=== PATIENT | female | born 1965 | race Caucasian/White ===

== ENCOUNTER 2016-09-05 09:18 | Outpatient (CLI) | payer OTHER ==
[~2016-09-05 09:18] MED LIST: ALBU17IN INH; ALBU83IN INH; BIOT10005 PO; BREO1INH3 IN; CALC600T21 PO; CLAR10CA3 PO; DULE200A IN; EPIP0.3I2 SC; FLON0.054; IBUP80TA PO; LEXA5TAB13 PO; LIPI10TA PO; METF500T PO; OMALIZUMAB 150 MG (XOLAIR) VIAL (J2357) SC ONE; OMEP40CA2 PO; PRED10TA PO; SING10TA32 PO; SYMB16INH INH; VITA100T20 PO; VITATAB21 PO
== END 2016-09-05 10:30 | disposition home or self-care (01) ==
LOC: M INFU 09:18
PROVIDERS: ATTEND Internal Medicine Pulmonary Disease
DX: J45.50 Severe persistent asthma, uncomplicated (principal)

== ENCOUNTER 2016-09-17 12:57 | Emergency (ER) | payer OTHER ==
[~2016-09-17 12:57] MED LIST changes: -OMALIZUMAB 150 MG (XOLAIR) VIAL (J2357) SC ONE
[2016-09-17] MEDS ORDERED: ACETAMINOPH W/CODEINE #3 TAB UD As Ordered ONE (16:05)
[2016-09-17] MEDS ORDERED: METHOCARBAMOL 500 MG TAB As Ordered ONE (16:06)
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
--- NOTE | 2016-09-17 17:15 | EDDOCDS ---
Physician Documentation [facility] Name: Padmaja Pat Age: 51 yrs Sex: Female : 1965 Arrival Date: 09/17/2016 Time: 12:57 Bed TR8 Private MD: Lisseth Traylor NP Disposition: 09/17/16 16:57 Discharged to Home/Self Care. Impression: Low back pain, Other intervertebral disc degeneration, lumbar region. - Condition is Stable. - Discharge Instructions: Back Pain, Adult, Degenerative Disk Disease. - Prescriptions for Ibuprofen 600 mg Oral Tablet - take 1 tablet by ORAL route every 6 hours As needed take with food; 30 tablet. Robaxin 500 mg Oral Tablet - take 2 tablet by ORAL route every 6 hours As needed; 40 tablet. Tylenol- Codeine #3 300-30 mg Oral Tablet - take 2 tablets by ORAL route every 6 hours As needed MDD: 4 tabs; 20 tablet. - Medication Reconciliation, Local Pharmacy Hours form. - Follow up: Lisseth Traylor; When: 2 - 3 days; Reason: Recheck today's complaints, Continuance of care. Follow up: [facility]; When: 2 - 3 days; Reason: Recheck today's complaints, Continuance of care. - Problem is new. - Symptoms have improved. Historical: - Allergies: no known allergies; - Home Meds: 1. omeprazole 20 mg Oral cpDR 1 cap once daily 2. escitalopram oxalate 20 mg oral tab 1 tab once daily 3. biotin oral 1 tab daily 4. loratadine 10 mg Oral tab 1 tab once daily 5. Singulair 10 mg Oral tab 1 tab nightly 6. Vitamin C 500 mg Oral cpER daily 7. Calcium + Vitamin D 600 mg calcium- 200 unit Oral tab daily - PMHx: Asthma; COPD; Diabetes - NIDDM: controlled; Seasonal Allergies; - PSHx: Hysterectomy; dental extractions; gastric sleeve; - Social history: Smoking status: Patient uses tobacco products, light tobacco smoker. No barriers to communication noted, The patient speaks fluent Ethiopian. - Family history: Not pertinent. - : The pt / caregiver states he / she is not on anticoagulants. Home medication list is obtained from the patient. - Exposure Risk Screening:: None identified. 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 4 in. (162.56 cm); Pain 10/10; 17:07 BP 127 / 77; Pulse 73; Resp 16; Temp 97; Pulse Ox 100% ; Pain 5/10; cmb 12:58 Body Mass Index 32.27 (85.28 kg, 162.56 cm) elp MDM: 15:36 [facility] Payment Agreement was scanned into [employer] and attached to record. lg 16:04 Acetaminophen-Codeine 300 mg-30 mg 2 tabs PO once ordered. ck7 16:04 Methocarbamol 1 grams PO once ordered. ck7 16:05 Spine. Lumbosacral, Complete Ordered. EDMS 16:05 Sacrum/coccyx Ordered. EDMS 16:06 Financial registration complete. gjb Administered Medications: 16:08 Drug: Acetaminophen-Codeine 2 tabs [acetaminophen 300 mg-codeine 30 mg tablet (2 tabs)] ttb Route: PO; 17:14 Follow up: Response: Confirmed pt not driving.; No Adverse Reaction; Pain is decreased ttb 16:08 Drug: Methocarbamol 1 grams [methocarbamol 500 mg tablet (2 tabs)] Route: PO; ttb 17:14 Follow up: Response: Confirmed pt not driving.; No Adverse Reaction; Pain is decreased ttb Signatures: Dispatcher [employer] EDMS Sakshi Lubin RN RN mcp Ganter, LoriLee, Nitin Reg lg Sanjay Rosales, MILTON-C RPA-CckIvonne Ga RN RN ttXiomara Vargas The chart was reviewed and I authenticate all verbal orders and agree with the evaluation and treatment provided.Attachments: 15:36 [facility] Payment Agreement lg MTDD
--- NOTE | 2016-09-17 17:28 | REP ---
LUMBOSACRAL SPINE: Five views of the lumbosacral spine were performed. There is no compression fracture or malalignment. There is normal lumbar lordosis without spondylolysis or spondylolisthesis. There is mild diffuse spurring. There is slight disc space narrowing at L1-2, L2-3, L4-5. There is sclerosis at the posterior facet joints diffusely especially at L5-S1 with spurring also at those L5-S1 facet joints. Posterior elements are intact. IMPRESSION: Mild degenerative changes. No fracture or dislocation. Signed by Sanford Barnes MD 09/18/2016 12:45 P
--- NOTE | 2016-09-17 17:30 | REP ---
SACRUM AND COCCYX: Three views of the sacrum and coccyx are performed and demonstrate no evidence of acute fracture, dislocation, or intrinsic bone disease. The AP views are limited by overlying bowel gas. IMPRESSION: No radiographic evidence of fracture or dislocation. Signed by Sanford Barnes MD 09/18/2016 12:45 P
--- NOTE | 2016-09-19 18:17 | EDDOCDS ---
Physician Documentation [facility] Name: Padmaja Pat Age: 51 yrs Sex: Female : 1965 Arrival Date: 09/17/2016 Time: 12:57 Bed TR8 Private MD: Lisseth Traylor NP Disposition: 09/17/16 16:57 Discharged to Home/Self Care. Impression: Low back pain, Other intervertebral disc degeneration, lumbar region. - Condition is Stable. - Discharge Instructions: Back Pain, Adult, Degenerative Disk Disease. - Prescriptions for Ibuprofen 600 mg Oral Tablet - take 1 tablet by ORAL route every 6 hours As needed take with food; 30 tablet. Robaxin 500 mg Oral Tablet - take 2 tablet by ORAL route every 6 hours As needed; 40 tablet. Tylenol- Codeine #3 300-30 mg Oral Tablet - take 2 tablets by ORAL route every 6 hours As needed MDD: 4 tabs; 20 tablet. - Medication Reconciliation, Local Pharmacy Hours form. - Follow up: Lisseth Traylor; When: 2 - 3 days; Reason: Recheck today's complaints, Continuance of care. Follow up: [facility]; When: 2 - 3 days; Reason: Recheck today's complaints, Continuance of care. - Problem is new. - Symptoms have improved. Historical: - Allergies: no known allergies; - Home Meds: 1. omeprazole 20 mg Oral cpDR 1 cap once daily 2. escitalopram oxalate 20 mg oral tab 1 tab once daily 3. biotin oral 1 tab daily 4. loratadine 10 mg Oral tab 1 tab once daily 5. Singulair 10 mg Oral tab 1 tab nightly 6. Vitamin C 500 mg Oral cpER daily 7. Calcium + Vitamin D 600 mg calcium- 200 unit Oral tab daily - PMHx: Asthma; COPD; Diabetes - NIDDM: controlled; Seasonal Allergies; - PSHx: Hysterectomy; dental extractions; gastric sleeve; - Social history: Smoking status: Patient uses tobacco products, light tobacco smoker. No barriers to communication noted, The patient speaks fluent French. - Family history: Not pertinent. - : The pt / caregiver states he / she is not on anticoagulants. Home medication list is obtained from the patient. - Exposure Risk Screening:: None identified. 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 4 in. (162.56 cm); Pain 10/10; 17:07 BP 127 / 77; Pulse 73; Resp 16; Temp 97; Pulse Ox 100% ; Pain 5/10; cmb 12:58 Body Mass Index 32.27 (85.28 kg, 162.56 cm) elp MDM: 15:36 [facility] Payment Agreement was scanned into [employer] and attached to record. lg 16:04 Acetaminophen-Codeine 300 mg-30 mg 2 tabs PO once ordered. ck7 16:04 Methocarbamol 1 grams PO once ordered. ck7 16:05 Spine. Lumbosacral, Complete Ordered. EDMS 16:05 Sacrum/coccyx Ordered. EDMS 16:06 Financial registration complete. gjb 09/18 11:26 T-Sheet-- Draft Copy was scanned into [employer] and attached to record. gb Administered Medications: 09/17 16:08 Drug: Acetaminophen-Codeine 2 tabs [acetaminophen 300 mg-codeine 30 mg tablet (2 tabs)] ttb Route: PO; 17:14 Follow up: Response: Confirmed pt not driving.; No Adverse Reaction; Pain is decreased ttb 16:08 Drug: Methocarbamol 1 grams [methocarbamol 500 mg tablet (2 tabs)] Route: PO; ttb 17:14 Follow up: Response: Confirmed pt not driving.; No Adverse Reaction; Pain is decreased ttb Signatures: Dispatcher [employer] EDSakshi Henry RN RN mcp Barnhardt, Gloria, Reg Reg gb Kathryn Herron, Reg Reg lg Sanjay Rosales, RPA-C RPA-Cck7 Ivonne Rueda RN RN ttb Beck, Gabriela gjb The chart was reviewed and I authenticate all verbal orders and agree with the evaluation and treatment provided.Attachments: 15:36 [facility] Payment Agreement lg 09/18 11:26 T-Sheet-- Draft Copy gb Chart Complete MTDD
--- NOTE | 2016-09-19 18:17 | EDDOCDS ---
Physician Documentation [facility] Name: Padmaja Pat Age: 51 yrs Sex: Female : 1965 Arrival Date: 09/17/2016 Time: 12:57 Bed TR8 Private MD: Lisseth Traylor NP Disposition: 09/17/16 16:57 Discharged to Home/Self Care. Impression: Low back pain, Other intervertebral disc degeneration, lumbar region. - Condition is Stable. - Discharge Instructions: Back Pain, Adult, Degenerative Disk Disease. - Prescriptions for Ibuprofen 600 mg Oral Tablet - take 1 tablet by ORAL route every 6 hours As needed take with food; 30 tablet. Robaxin 500 mg Oral Tablet - take 2 tablet by ORAL route every 6 hours As needed; 40 tablet. Tylenol- Codeine #3 300-30 mg Oral Tablet - take 2 tablets by ORAL route every 6 hours As needed MDD: 4 tabs; 20 tablet. - Medication Reconciliation, Local Pharmacy Hours form. - Follow up: Lisseth Traylor; When: 2 - 3 days; Reason: Recheck today's complaints, Continuance of care. Follow up: [facility]; When: 2 - 3 days; Reason: Recheck today's complaints, Continuance of care. - Problem is new. - Symptoms have improved. Historical: - Allergies: no known allergies; - Home Meds: 1. omeprazole 20 mg Oral cpDR 1 cap once daily 2. escitalopram oxalate 20 mg oral tab 1 tab once daily 3. biotin oral 1 tab daily 4. loratadine 10 mg Oral tab 1 tab once daily 5. Singulair 10 mg Oral tab 1 tab nightly 6. Vitamin C 500 mg Oral cpER daily 7. Calcium + Vitamin D 600 mg calcium- 200 unit Oral tab daily - PMHx: Asthma; COPD; Diabetes - NIDDM: controlled; Seasonal Allergies; - PSHx: Hysterectomy; dental extractions; gastric sleeve; - Social history: Smoking status: Patient uses tobacco products, light tobacco smoker. No barriers to communication noted, The patient speaks fluent Hungarian. - Family history: Not pertinent. - : The pt / caregiver states he / she is not on anticoagulants. Home medication list is obtained from the patient. - Exposure Risk Screening:: None identified. 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 4 in. (162.56 cm); Pain 10/10; 17:07 BP 127 / 77; Pulse 73; Resp 16; Temp 97; Pulse Ox 100% ; Pain 5/10; cmb 12:58 Body Mass Index 32.27 (85.28 kg, 162.56 cm) elp MDM: 15:36 [facility] Payment Agreement was scanned into [employer] and attached to record. lg 16:04 Acetaminophen-Codeine 300 mg-30 mg 2 tabs PO once ordered. ck7 16:04 Methocarbamol 1 grams PO once ordered. ck7 16:05 Spine. Lumbosacral, Complete Ordered. EDMS 16:05 Sacrum/coccyx Ordered. EDMS 16:06 Financial registration complete. gjb 09/18 11:26 T-Sheet-- Draft Copy was scanned into [employer] and attached to record. gb Administered Medications: 09/17 16:08 Drug: Acetaminophen-Codeine 2 tabs [acetaminophen 300 mg-codeine 30 mg tablet (2 tabs)] ttb Route: PO; 17:14 Follow up: Response: Confirmed pt not driving.; No Adverse Reaction; Pain is decreased ttb 16:08 Drug: Methocarbamol 1 grams [methocarbamol 500 mg tablet (2 tabs)] Route: PO; ttb 17:14 Follow up: Response: Confirmed pt not driving.; No Adverse Reaction; Pain is decreased ttb Signatures: Dispatcher [employer] EDSakshi Henry RN RN mcp Barnhardt, Gloria, Reg Reg gb Kathryn Herron, Reg Reg lg Sanjay Rosales, RPA-C RPA-Cck7 Ivonne Rueda RN RN ttb Beck, Gabriela gjb The chart was reviewed and I authenticate all verbal orders and agree with the evaluation and treatment provided.Attachments: 15:36 [facility] Payment Agreement lg 09/18 11:26 T-Sheet-- Draft Copy gb Chart Complete MTDD
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
== END 2016-09-17 17:15 | disposition home or self-care (01) ==
LOC: M ED 12:57
DX: M51.36 Other intervertebral disc degeneration, lumbar region (principal); E11.9 Type 2 diabetes mellitus without complications; J44.9 Chronic obstructive pulmonary disease, unspecified; J45.909 Unspecified asthma, uncomplicated; Z98.84 Bariatric surgery status; Z79.899 Other long term (current) drug therapy; F17.210 Nicotine dependence, cigarettes, uncomplicated

== ENCOUNTER 2016-09-19 11:44 | Outpatient (CLI) | payer OTHER ==
[~2016-09-19 11:44] MED LIST changes: +OMALIZUMAB 150 MG (XOLAIR) VIAL (J2357) SC ONE
== END 2016-09-19 13:10 | disposition home or self-care (01) ==
LOC: M INFU 11:44
PROVIDERS: ATTEND Internal Medicine Pulmonary Disease
DX: J45.50 Severe persistent asthma, uncomplicated (principal); Z79.51 Long term (current) use of inhaled steroids; Z79.899 Other long term (current) drug therapy; Z79.1 Long term (current) use of non-steroidal anti-inflammatories (NSAID)

== ENCOUNTER 2016-10-03 12:55 | Outpatient (CLI) | payer OTHER ==
[~2016-10-03 12:55] MED LIST changes: -OMALIZUMAB 150 MG (XOLAIR) VIAL (J2357) SC ONE
[2016-10-03] MEDS ORDERED: OMALIZUMAB 150 MG (XOLAIR) VIAL (J2357) SC ONE (13:00)
[2016-10-03] MEDS ORDERED: ROBA500T PO (14:09)
[2016-10-03] MEDS ORDERED: XANA0.25 PO (14:09)
[2016-10-03] MEDS ORDERED: [UNRECOGNIZED DRUG - REMARK] PO (14:09)
== END 2016-10-03 14:00 | disposition home or self-care (01) ==
LOC: M INFU 12:55
PROVIDERS: ATTEND Internal Medicine Pulmonary Disease
DX: J45.50 Severe persistent asthma, uncomplicated (principal); Z79.899 Other long term (current) drug therapy; Z91.040 Latex allergy status
CPT/HCPCS: 96372; J2357

== ENCOUNTER → 2016-10-10 | Outpatient (REF) | payer OTHER ==
[~2016-10-10] MED LIST changes: +ROBA500T PO; +XANA0.25 PO; +[UNRECOGNIZED DRUG - REMARK] PO
[2016-10-10 12:06] LABS: ALBUMIN 3.6 GM/DL (3.2-5.2); ALBUMIN/GLOBULIN RATIO 1.03 (1.00-1.93); ALKALINE PHOSPHATASE 89 U/L (45-117); ALT/SGPT 34 U/L (12-78); ANION GAP 6 MEQ/L (8-16); AST/SGOT 19 U/L (15-37); BILIRUBIN,TOTAL 0.7 MG/DL (0.2-1.0); BLOOD UREA NITROGEN 10 MG/DL (7-18); CARBON DIOXIDE LEVEL 28 MEQ/L (21-32); CHLORIDE LEVEL 108 MEQ/L (98-107); CREATININE FOR GFR 0.77 MG/DL (0.55-1.02); GLOMERULAR FILTRATION RATE > 60.0 (>51); GLUCOSE, FASTING 101 MG/DL (70-105); POTASSIUM SERUM 4.5 MEQ/L (3.5-5.1); SODIUM LEVEL 142 MEQ/L (136-145); TOTAL PROTEIN 7.1 GM/DL (6.4-8.2)
== END ==
LOC: M SFHCPLAZ 11:09
PROVIDERS: ATTEND Nurse Practitioner Family
DX: E11.9 Type 2 diabetes mellitus without complications (principal); E55.9 Vitamin D deficiency, unspecified

== ENCOUNTER 2016-10-17 11:46 | Outpatient (CLI) | payer OTHER ==
[2016-10-17] MEDS ORDERED: OMALIZUMAB 150 MG (XOLAIR) VIAL (J2357) SC ONE (12:00)
== END 2016-10-17 13:30 | disposition home or self-care (01) ==
LOC: M INFU 11:46
PROVIDERS: ATTEND Internal Medicine Pulmonary Disease
DX: J45.50 Severe persistent asthma, uncomplicated (principal); Z91.040 Latex allergy status; Z79.51 Long term (current) use of inhaled steroids; Z79.1 Long term (current) use of non-steroidal anti-inflammatories (NSAID); Z79.899 Other long term (current) drug therapy
CPT/HCPCS: 96372; J2357

== ENCOUNTER 2016-10-31 10:43 | Outpatient (CLI) | payer OTHER ==
[~2016-10-31 10:43] MED LIST changes: +OMALIZUMAB 150 MG (XOLAIR) VIAL (J2357) SC ONE
[2016-10-31] MEDS ORDERED: LEXA5TAB13 PO (12:09)
[2016-10-31] MEDS ORDERED: LAMI25TA PO (12:09)
== END 2016-10-31 12:00 | disposition home or self-care (01) ==
LOC: M INFU 10:43
PROVIDERS: ATTEND Internal Medicine Pulmonary Disease
DX: J45.50 Severe persistent asthma, uncomplicated (principal); Z79.899 Other long term (current) drug therapy; Z79.51 Long term (current) use of inhaled steroids; Z91.040 Latex allergy status

== ENCOUNTER 2016-11-17 09:52 | Outpatient (CLI) | payer OTHER ==
[~2016-11-17] VITALS: Ht 160 cm; Wt 86.2 kg
[~2016-11-17 09:52] MED LIST changes: +LAMI25TA PO; -OMALIZUMAB 150 MG (XOLAIR) VIAL (J2357) SC ONE
[2016-11-17] MEDS ORDERED: OMALIZUMAB 150 MG (XOLAIR) VIAL (J2357) SC ONE (12:00)
== END 2016-11-17 13:30 | disposition home or self-care (01) ==
LOC: M INFU 09:52
PROVIDERS: ATTEND Internal Medicine Pulmonary Disease
DX: J45.50 Severe persistent asthma, uncomplicated (principal); Z79.899 Other long term (current) drug therapy; Z91.040 Latex allergy status; Z79.51 Long term (current) use of inhaled steroids

== ENCOUNTER → 2016-11-24 | Outpatient (CLI) | payer OTHER ==
--- NOTE | 2016-11-24 16:22 | REP ---
MR LUMBAR SPINE WITHOUT CONTRAST: HISTORY: Back pain. There is no disc bulge or herniation at the L1-2 through L5-S1 levels. There is hypertrophy of the posterior articulating facets at the L3-4 through L5-S1 levels. The nerves exit the neural foramina without compression. The conus medullaris is normal in appearance terminating at the level of the L1-2 intervertebral disc . Normal signal intensity is present in the lumbar intervertebral discs and vertebral bodies. IMPRESSION: There is no disc bulge or herniation. Signed by Colby Morataya MD 11/24/2016 04:26 P
== END ==
LOC: M RAD 14:22
PROVIDERS: ATTEND Physician Assistant
DX: M51.36 Other intervertebral disc degeneration, lumbar region (principal)

== ENCOUNTER 2016-12-01 09:50 | Outpatient (CLI) | payer OTHER ==
[2016-12-01] MEDS ORDERED: OMALIZUMAB 150 MG (XOLAIR) VIAL (J2357) SC ONE (11:00)
== END 2016-12-01 12:00 | disposition home or self-care (01) ==
LOC: M INFU 09:50
PROVIDERS: ATTEND Internal Medicine Pulmonary Disease
DX: J45.50 Severe persistent asthma, uncomplicated (principal); Z79.899 Other long term (current) drug therapy; Z79.51 Long term (current) use of inhaled steroids; Z91.040 Latex allergy status

== ENCOUNTER 2016-12-15 10:35 | Outpatient (CLI) | payer OTHER ==
[~2016-12-15] VITALS: Ht 160 cm; Wt 86.4 kg
[2016-12-15] MEDS ORDERED: OMALIZUMAB 150 MG (XOLAIR) VIAL (J2357) SC ONE (11:00)
[2016-12-15] MEDS ORDERED: VITA250L PO (11:15)
[2016-12-15] MEDS ORDERED: XANA0.25 PO (11:15)
== END 2016-12-15 12:00 | disposition home or self-care (01) ==
LOC: M INFU 10:35
PROVIDERS: ATTEND Internal Medicine Pulmonary Disease
DX: J45.50 Severe persistent asthma, uncomplicated (principal); Z79.899 Other long term (current) drug therapy; Z91.040 Latex allergy status

== ENCOUNTER → 2016-12-22 | Outpatient (CLI) | payer OTHER ==
[~2016-12-22] MED LIST changes: +VITA250L PO
--- NOTE | 2016-12-23 21:24 | SLEEPCENT ---
DATE OF PROCEDURE: 12/22/2016 REFERRING PHYSICIAN: Brice Mitchell DO Nocturnal polysomnography was performed for the titration of pressure therapy in this patient with a clinical diagnosis of obstructive sleep apnea syndrome confirmed by home testing revealing a respiratory event index of 7.5. For testing, the patient was fit with a Respironics ComfortGel nasal mask of petite size. 4 cm of water pressure were applied to the circuit and the lights were extinguished. 7 hours and 7 minutes of data were reviewed. There were 340 minutes of sleep identified. Sleep latency was normal at 12 minutes. Rapid eye movement (REM) sleep was prolonged at 225 minutes. Sleep architecture remained somewhat fragmented with periods of wake. There were two episodes of REM identified. Overall sleep efficiency was 80%. The patient's EKG showed a sinus rhythm with an average heart rate of 66 beats per minute. EEG showed reasonably normal waveforms for awake and sleep. No focal events were identified. Best pressure for palliation of respiratory events was found to be 5 cm of water with which the patient slept through REM without respiratory event or oxygen desaturation. There was some limb activity in two trains of 30 events. Limb movement arousal index was borderline at 7.9. IMPRESSION: Obstructive sleep apnea syndrome (G47.33). RECOMMENDATION: Nightly use of pressure therapy at 5 cm of water.
== END ==
LOC: M SLEEP 19:32
PROVIDERS: ATTEND Internal Medicine Pulmonary Disease
DX: G47.33 Obstructive sleep apnea (adult) (pediatric) (principal)

== ENCOUNTER 2016-12-29 12:15 | Outpatient (CLI) | payer OTHER ==
[~2016-12-29] VITALS: Ht 160 cm; Wt 86.4 kg
[2016-12-29] MEDS ORDERED: OMALIZUMAB 150 MG (XOLAIR) VIAL (J2357) SC ONE (12:45)
== END 2016-12-29 14:00 | disposition home or self-care (01) ==
LOC: M INFU 12:15
PROVIDERS: ATTEND Internal Medicine Pulmonary Disease
DX: J45.50 Severe persistent asthma, uncomplicated (principal); Z88.5 Allergy status to narcotic agent; Z91.040 Latex allergy status; Z87.891 Personal history of nicotine dependence; Z79.899 Other long term (current) drug therapy
CPT/HCPCS: 96372; J2357

== ENCOUNTER 2017-01-03 07:23 | Emergency (ER) | payer OTHER ==
[~2017-01-03] VITALS: Ht 162.6 cm; Wt 85.3 kg
[2017-01-03] MEDS ORDERED: IBUPROFEN 600 MG TAB PO ONE (08:00)
[2017-01-03] MEDS ORDERED: KETOROLAC 60 MG/2 ML VIAL (J1885) IM ONE (08:15)
[2017-01-03 09:22] VITALS: BP 132/71
--- NOTE | 2017-01-03 09:26 | REP ---
LEFT KNEE SERIES: Five views left knee performed. I see no evidence of acute fracture or dislocation. Linear calcification along the medial femoral condyle probably represents a ligamentous calcification. There is mild spurring of the tibial spines. There is a small joint effusion. IMPRESSION: No acute fracture or dislocation. Small joint effusion. Signed by Sanford Barnes MD 01/03/2017 07:44 P
== END 2017-01-03 09:25 | disposition home or self-care (01) ==
LOC: M ED 07:57
DX: S83.92XA Sprain of unspecified site of left knee, initial encounter (principal); M25.462 Effusion, left knee; X58.XXXA Exposure to other specified factors, initial encounter; Y92.89 Other specified places as the place of occurrence of the external cause; Y93.89 Activity, other specified; Y99.8 Other external cause status; Z79.899 Other long term (current) drug therapy; Z98.84 Bariatric surgery status; Z88.8 Allergy status to other drugs, medicaments and biological substances; Z91.040 Latex allergy status; F17.200 Nicotine dependence, unspecified, uncomplicated

== ENCOUNTER 2017-01-12 11:39 | Outpatient (CLI) | payer OTHER ==
[2017-01-12] MEDS ORDERED: OMALIZUMAB 150 MG (XOLAIR) VIAL (J2357) SC ONE (12:00)
[2017-01-12] MEDS ORDERED: DULE200A INH (13:11)
== END 2017-01-12 13:30 | disposition home or self-care (01) ==
LOC: M INFU 11:39
PROVIDERS: ATTEND Internal Medicine Pulmonary Disease
DX: J45.50 Severe persistent asthma, uncomplicated (principal); Z87.891 Personal history of nicotine dependence; Z88.8 Allergy status to other drugs, medicaments and biological substances; Z91.040 Latex allergy status; Z88.5 Allergy status to narcotic agent

== ENCOUNTER 2017-01-26 12:18 | Outpatient (CLI) | payer OTHER ==
[~2017-01-26] VITALS: Ht 160 cm; Wt 86.4 kg
[~2017-01-26 12:18] MED LIST changes: +DULE200A INH
[2017-01-26] MEDS ORDERED: OMALIZUMAB 150 MG (XOLAIR) VIAL (J2357) SC ONE (12:30)
== END 2017-01-26 14:10 | disposition home or self-care (01) ==
LOC: M INFU 12:18
PROVIDERS: ATTEND Internal Medicine Pulmonary Disease
DX: J45.50 Severe persistent asthma, uncomplicated (principal); Z87.891 Personal history of nicotine dependence; Z88.5 Allergy status to narcotic agent; Z88.8 Allergy status to other drugs, medicaments and biological substances; Z91.040 Latex allergy status; Z79.899 Other long term (current) drug therapy

== ENCOUNTER 2017-02-16 12:16 | Outpatient (CLI) | payer OTHER ==
[~2017-02-16 12:16] MED LIST changes: +OMALIZUMAB 150 MG (XOLAIR) VIAL (J2357) SC ONE
== END 2017-02-16 13:30 | disposition home or self-care (01) ==
LOC: M INFU 12:16
PROVIDERS: ATTEND Internal Medicine Pulmonary Disease
DX: J45.50 Severe persistent asthma, uncomplicated (principal)

== ENCOUNTER 2017-03-02 09:42 | Outpatient (CLI) | payer OTHER ==
[~2017-03-02 09:42] MED LIST changes: -BIOT10005 PO; +BIOT10008 PO; -CALC600T21 PO; +CALC600T60 PO; -METF500T PO; +METF500T13 PO; -OMALIZUMAB 150 MG (XOLAIR) VIAL (J2357) SC ONE
[2017-03-02] MEDS ORDERED: OMALIZUMAB 150 MG (XOLAIR) VIAL (J2357) SC ONE (10:00)
== END 2017-03-02 11:30 | disposition home or self-care (01) ==
LOC: M INFU 09:42
PROVIDERS: ATTEND Internal Medicine Pulmonary Disease
DX: J45.50 Severe persistent asthma, uncomplicated (principal); Z87.891 Personal history of nicotine dependence; Z88.5 Allergy status to narcotic agent; Z91.040 Latex allergy status; Z79.899 Other long term (current) drug therapy

== ENCOUNTER 2017-03-16 08:40 | Outpatient (CLI) | payer OTHER ==
[~2017-03-16] VITALS: Ht 160 cm; Wt 86.4 kg
[2017-03-16] MEDS ORDERED: OMALIZUMAB 150 MG (XOLAIR) VIAL (J2357) SC ONE (09:00)
== END 2017-03-16 10:00 | disposition home or self-care (01) ==
LOC: M INFU 08:40
PROVIDERS: ATTEND Internal Medicine Pulmonary Disease
DX: J45.50 Severe persistent asthma, uncomplicated (principal); Z91.040 Latex allergy status; Z88.5 Allergy status to narcotic agent; Z88.8 Allergy status to other drugs, medicaments and biological substances; Z87.891 Personal history of nicotine dependence; Z79.899 Other long term (current) drug therapy

== ENCOUNTER 2017-03-30 10:31 | Outpatient (CLI) | payer OTHER ==
[~2017-03-30 10:31] MED LIST changes: +OMALIZUMAB 150 MG (XOLAIR) VIAL (J2357) SC ONE
== END 2017-03-30 12:05 | disposition home or self-care (01) ==
LOC: M INFU 10:31
PROVIDERS: ATTEND Internal Medicine Pulmonary Disease
DX: J45.50 Severe persistent asthma, uncomplicated (principal); Z91.040 Latex allergy status; Z88.8 Allergy status to other drugs, medicaments and biological substances; Z79.899 Other long term (current) drug therapy

== ENCOUNTER 2017-04-13 14:23 | Outpatient (CLI) | payer OTHER ==
[~2017-04-13] VITALS: Ht 160 cm; Wt 86.4 kg
[~2017-04-13 14:23] MED LIST changes: -OMALIZUMAB 150 MG (XOLAIR) VIAL (J2357) SC ONE
[2017-04-13] MEDS ORDERED: OMALIZUMAB 150 MG (XOLAIR) VIAL (J2357) SC ONE (14:30)
== END 2017-04-13 16:25 | disposition home or self-care (01) ==
LOC: M INFU 14:23
PROVIDERS: ATTEND Internal Medicine Pulmonary Disease
DX: J45.50 Severe persistent asthma, uncomplicated (principal); Z87.891 Personal history of nicotine dependence; Z88.5 Allergy status to narcotic agent; Z91.040 Latex allergy status; Z88.8 Allergy status to other drugs, medicaments and biological substances
CPT/HCPCS: 96372; J2357

== ENCOUNTER 2017-04-28 12:40 | Outpatient (CLI) | payer OTHER ==
[~2017-04-28] VITALS: Ht 160 cm; Wt 86.4 kg
[2017-04-28] MEDS ORDERED: OMALIZUMAB 150 MG (XOLAIR) VIAL (J2357) SC ONE (13:00)
== END 2017-04-28 14:00 | disposition home or self-care (01) ==
LOC: M INFU 12:40
PROVIDERS: ATTEND Internal Medicine Pulmonary Disease
DX: J45.50 Severe persistent asthma, uncomplicated (principal); Z87.891 Personal history of nicotine dependence; Z88.8 Allergy status to other drugs, medicaments and biological substances; Z91.040 Latex allergy status; Z79.899 Other long term (current) drug therapy
CPT/HCPCS: 96372; J2357

== ENCOUNTER → 2017-05-04 | Outpatient (CLI) | payer OTHER ==
--- NOTE | 2017-05-04 11:19 | REPMRS ---
Patient History The patient states she had a clinical breast exam in 05/10 Family history of breast cancer in paternal aunt at age 50 or over. Digital Woman Screen Mammo: May 04, 2017 - Exam #: [id number] Bilateral CC and MLO view(s) were taken. Technologist: Simi Li, Technologist Prior study comparison: May 02, 2016, digital woman screen mammo performed at [facility]. January 26, 2015, digital woman screen mammo performed at [facility]. January 03, 2014, digital woman screen mammo performed at [facility]. FINDINGS: There are scattered fibroglandular densities. There has been no change in the appearance of the mammogram from the prior studies. There is a mild amount of scattered fibroglandular density which is fairly symmetric. There is no interval development of dominant mass, architectural distortion, or clustered microcalcification suggestive of malignancy. ASSESSMENT: BI-RADS/ACR category 1 mammogram. Negative. Recommendation Routine screening mammogram in 1 year (for women over age 40). This mammogram was interpreted with the aid of an FDA-approved computer-aided dectection system. Electronically Signed By: Kong Rubio MD 05/04/17 [id number]
== END ==
LOC: M WHC 08:54
PROVIDERS: ATTEND Nurse Practitioner Women's Health
DX: Z12.31 Encounter for screening mammogram for malignant neoplasm of breast (principal)

== ENCOUNTER 2017-05-11 13:36 | Outpatient (CLI) | payer OTHER ==
[~2017-05-11] VITALS: Ht 160 cm; Wt 86.4 kg
[2017-05-11] MEDS ORDERED: OMALIZUMAB 150 MG (XOLAIR) VIAL (J2357) SC ONE (14:00)
== END 2017-05-11 15:30 | disposition home or self-care (01) ==
LOC: M INFU 13:36
PROVIDERS: ATTEND Internal Medicine Pulmonary Disease
DX: J45.50 Severe persistent asthma, uncomplicated (principal); Z91.040 Latex allergy status; Z88.8 Allergy status to other drugs, medicaments and biological substances; Z88.5 Allergy status to narcotic agent; Z87.891 Personal history of nicotine dependence; Z79.899 Other long term (current) drug therapy
CPT/HCPCS: 96372; J2357

== ENCOUNTER 2017-05-26 11:31 | Outpatient (CLI) | payer OTHER ==
[~2017-05-26] VITALS: Ht 160 cm; Wt 89.5 kg
[2017-05-26] MEDS ORDERED: OMALIZUMAB 150 MG (XOLAIR) VIAL (J2357) SC ONE (13:00)
[2017-07-07] MEDS ORDERED: MELO7.5T7 PO (07:53)
[2017-07-07] MEDS ORDERED: MULTCAP11 PO (07:53)
[2017-07-07] MEDS ORDERED: OMEP20CA3 PO (07:53)
[2017-07-07] MEDS ORDERED: VITA500C24 PO (07:53)
[2017-07-07] MEDS ORDERED: CALC500T49 PO (07:53)
[2017-07-07] MEDS ORDERED: SING10TA32 PO ×2 (07:53)
== END 2017-05-26 13:45 | disposition home or self-care (01) ==
LOC: M INFU 11:31
PROVIDERS: ATTEND Internal Medicine Pulmonary Disease
DX: J45.50 Severe persistent asthma, uncomplicated (principal); Z87.891 Personal history of nicotine dependence; Z88.8 Allergy status to other drugs, medicaments and biological substances; Z88.5 Allergy status to narcotic agent; Z91.040 Latex allergy status; Z79.899 Other long term (current) drug therapy

== ENCOUNTER 2017-06-09 12:49 | Outpatient (CLI) | payer OTHER ==
[2017-06-09] MEDS: OMALIZUMAB 150 MG (XOLAIR) VIAL (J2357) SC ONE (13:08)
[2017-07-07] MEDS ORDERED: OMEP20CA3 PO (07:53)
[2017-07-07] MEDS ORDERED: CALC500T49 PO (07:53)
[2017-07-07] MEDS ORDERED: MULTCAP11 PO (07:53)
[2017-07-07] MEDS ORDERED: MELO7.5T7 PO (07:53)
[2017-07-07] MEDS ORDERED: VITA500C24 PO (07:53)
[2017-07-07] MEDS ORDERED: SING10TA32 PO ×2 (07:53)
== END 2017-06-09 14:30 | disposition home or self-care (01) ==
LOC: M INFU 12:49
PROVIDERS: ATTEND Internal Medicine Pulmonary Disease
DX: J45.50 Severe persistent asthma, uncomplicated (principal); Z87.891 Personal history of nicotine dependence; Z88.8 Allergy status to other drugs, medicaments and biological substances; Z91.040 Latex allergy status; Z79.899 Other long term (current) drug therapy

== ENCOUNTER 2017-07-07 11:59 | Outpatient (CLI) | payer OTHER ==
[~2017-07-07] VITALS: Ht 160 cm; Wt 89.5 kg
[~2017-07-07 11:59] MED LIST changes: +CALC500T49 PO; +MELO7.5T7 PO; +MULTCAP11 PO; +OMEP20CA3 PO; +VITA500C24 PO
[2017-07-07] MEDS ORDERED: OMALIZUMAB 150 MG (XOLAIR) VIAL (J2357) SC ONE (13:00)
== END 2017-07-07 14:00 | disposition home or self-care (01) ==
LOC: M INFU 11:59
PROVIDERS: ATTEND Internal Medicine Pulmonary Disease
DX: J45.50 Severe persistent asthma, uncomplicated (principal); Z88.8 Allergy status to other drugs, medicaments and biological substances; Z91.040 Latex allergy status; Z88.5 Allergy status to narcotic agent; Z98.84 Bariatric surgery status; Z87.891 Personal history of nicotine dependence
CPT/HCPCS: 96372; J2357

== ENCOUNTER 2017-07-13 11:34 | Day surgery (SDC) | payer OTHER ==
[~2017-07-13] VITALS: Ht 162.6 cm; Wt 89.4 kg
[2017-07-13] MEDS ORDERED: NS 1,000 ML IV ONE (12:00)
--- NOTE | 2017-07-13 14:20 | ROOR ---
Patient Name: Padmaja Pat Procedure Date: 07/13/2017 1:52 PM Date of : 1965 Age: 51 Room: [facility] Gender: Female Note Status: Finalized Procedure: Total Colonoscopy to Cecum Indications: Screening for colorectal malignant neoplasm, Last colonoscopy: 2006 Providers: Corby Hill MD Referring MD: Lisseth Traylor NP Requesting Provider: Medicines: Monitored Anesthesia Care Complications: No immediate complications. Procedure: Pre-Anesthesia Assessment: - The heart rate, respiratory rate, oxygen saturations, blood pressure, adequacy of pulmonary ventilation, and response to care were monitored throughout the procedure. The Colonoscope was introduced through the anus and advanced to the cecum, identified by appendiceal orifice and ileocecal valve. The colonoscopy was performed without difficulty. The patient tolerated the procedure well. The quality of the bowel preparation was fair. Findings: The perianal and digital rectal examinations were normal. Non-bleeding internal hemorrhoids were found during retroflexion. The hemorrhoids were small and Grade I (internal hemorrhoids that do not prolapse). The exam was otherwise without abnormality on direct and retroflexion views. Impression: - Preparation of the colon was fair. - Non-bleeding internal hemorrhoids. - The examination was otherwise normal on direct and retroflexion views. - No specimens collected. - The entire examined colon is normal on direct and retroflexion views. - The exam was otherwise normal to the cecum. Recommendation: - Patient has a contact number available for emergencies. The signs and symptoms of potential delayed complications were discussed with the patient. Return to normal activities tomorrow. Written discharge instructions were provided to the patient. - High fiber diet. - Discharge patient to home. - Continue present medications. - Repeat colonoscopy in 10 years for screening purposes. - Return to referring physician. - The findings and recommendations were discussed with the patient's family. Corby Hill MD Corby Hill MD 07/13/2017 2:19:38 PM This report has been signed electronically. Number of Addenda: 0 Note Initiated On: 07/13/2017 1:52 PM Estimated Blood Loss: Estimated blood loss: none.
[2017-07-13 14:40] VITALS: BP 153/102
== END 2017-07-13 14:48 | disposition home or self-care (01) ==
LOC: M OPP 11:34
PROVIDERS: ATTEND Internal Medicine Gastroenterology
DX: Z12.11 Encounter for screening for malignant neoplasm of colon (principal); Z86.010 Personal history of colon polyps; K64.0 First degree hemorrhoids; E11.9 Type 2 diabetes mellitus without complications; R12 Heartburn; K21.9 Gastro-esophageal reflux disease without esophagitis; M19.90 Unspecified osteoarthritis, unspecified site; L30.9 Dermatitis, unspecified; F41.9 Anxiety disorder, unspecified; F43.10 Post-traumatic stress disorder, unspecified; K44.9 Diaphragmatic hernia without obstruction or gangrene; J45.909 Unspecified asthma, uncomplicated; J44.9 Chronic obstructive pulmonary disease, unspecified; Z98.84 Bariatric surgery status; F17.210 Nicotine dependence, cigarettes, uncomplicated; Z88.8 Allergy status to other drugs, medicaments and biological substances; Z88.5 Allergy status to narcotic agent; Z91.040 Latex allergy status; Z79.899 Other long term (current) drug therapy

== ENCOUNTER 2017-07-20 15:32 | Emergency (ER) | payer OTHER ==
[~2017-07-20] VITALS: Ht 162.6 cm; Wt 86.4 kg
[2017-07-20] MEDS ORDERED: NS 1,000 ML IV ONE (18:00)
[2017-07-20] MEDS ORDERED: ONDANSETRON 4MG/2ML VIAL (J2405) IV ONE (18:00)
[2017-07-20] MEDS ORDERED: GASTROGRAFIN SOLUTION 30ML PO ONE (18:15)
[2017-07-20 18:23] LABS: BASO # 0.1 10^3/uL (0.0-0.2); BASO % 0.6 % (0.0-1.0); EOS # 0.2 10^3/uL (0.0-0.50); IMMATURE GRANULOCYTE % 0.5 % (0-0); LYMPH # 2.2 10^3/uL (1.5-4.5); LYMPH % 25.1 % (24.0-44.0); MEAN CORPUSCULAR HGB CONC 35.2 g/dl (32.0-36.5); MEAN CORPUSCULAR VOLUME 93.8 fl (80.0-96.0); MONO # 0.6 10^3/uL (0.0-0.8); MONO % 6.7 % (0.0-5.0); NEUTROPHILS # 5.8 10^3/uL (1.8-7.7); NEUTROPHILS % 65.1 % (36.0-66.0); PLATELET COUNT, AUTOMATED 254 10^3/uL (150-450); RED CELL DISTRIBUTION WIDTH 12.3 % (11.5-14.5); WHITE BLOOD COUNT 8.9 10^3/uL (4.0-10.0)
[2017-07-20] MEDS ORDERED: GASTROGRAFIN SOLUTION 30ML (Q9963) PO ONE (18:45)
[2017-07-20 18:48] LABS: ALBUMIN 3.3 GM/DL (3.2-5.2); ALBUMIN/GLOBULIN RATIO 0.87 (1.00-1.93); ALKALINE PHOSPHATASE 70 U/L (45-117); ALT/SGPT 44 U/L (12-78); ANION GAP 7 MEQ/L (8-16); AST/SGOT 19 U/L (7-37); BILIRUBIN,DIRECT 0.2 MG/DL (0.0-0.2); BILIRUBIN,TOTAL 0.8 MG/DL (0.2-1.0); BLOOD UREA NITROGEN 12 MG/DL (7-18); CALCIUM LEVEL 8.9 MG/DL (8.5-10.1); CARBON DIOXIDE LEVEL 27 MEQ/L (21-32); CHLORIDE LEVEL 107 MEQ/L (98-107); CREATININE FOR GFR 0.56 MG/DL (0.55-1.02); GLOMERULAR FILTRATION RATE > 60.0 (>51); GLUCOSE, FASTING 82 MG/DL (70-105); POTASSIUM SERUM 3.6 MEQ/L (3.5-5.1); SODIUM LEVEL 141 MEQ/L (136-145); TOTAL PROTEIN 7.1 GM/DL (6.4-8.2)
[2017-07-20] MEDS ORDERED: ISOVUE-370 76% 100ML VIAL (Q9967) As Ordered ONE (19:21)
--- NOTE | 2017-07-20 20:00 | REPUSA ---
CT of the abdomen and pelvis with contrast Clinical statement: Pain. Technique: Multiple axial CT images were obtained from the base of the lungs through the floor of the pelvis utilizing 5 mm axial slices after administration of oral and nonionic intravenous contrast. C oronal and sagittal reconstructions were also obtained. No comparison is available. Findings: Chest: The visualized lung bases are clear. Abdomen: The spleen, pancreas, kidneys, gallbladder, and adrenal glands are unremarkable. The liver i s enlarged measuring 24.6 cm in diameter. Diffuse low attenuation of the hepatic parenchyma is noted. No focal hepatic masses are seen. The hepatic and portal veins are patent. The aorta is within juliette l limits. There is no evidence of abdominal lymphadenopathy or ascites. Pelvis: The bowel is unremarkable, with no obstructive or inflammatory changes. The appendix is juliette l. The urinary bladder is within normal limits. The other pelvic structures appear grossly intact. Th ere is no evidence of pelvic lymphadenopathy or ascites. Bones: There are no suspicious osseous abnormalities seen. Impression: 1. Hepatomegaly. Diffuse fatty infiltration of the liver. 2. No obstructive or inflammatory bowel changes.
[2017-07-20] MEDS ORDERED: ZOFR20TA PO (20:55)
[2017-07-20 21:00] VITALS: BP 128/82
== END 2017-07-20 21:16 | disposition home or self-care (01) ==
LOC: M ED 15:32
DX: K52.9 Noninfective gastroenteritis and colitis, unspecified (principal); Z72.0 Tobacco use
CPT/HCPCS: 74177; 80048; 80076; 83690; 85025; 87507; 96374; 99284; J2405; Q9963; Q9967

== ENCOUNTER 2017-07-29 09:21 | Outpatient (CLI) | payer OTHER ==
[~2017-07-29] VITALS: Ht 160 cm; Wt 89.5 kg
[~2017-07-29 09:21] MED LIST changes: +ZOFR20TA PO
[2017-07-29] MEDS ORDERED: ARNU1INH3 IN (09:32)
[2017-07-29] MEDS ORDERED: OMALIZUMAB 150 MG (XOLAIR) VIAL (J2357) SC ONE (10:00)
== END 2017-07-29 11:00 | disposition home or self-care (01) ==
LOC: M INFU 09:21
PROVIDERS: ATTEND Internal Medicine Pulmonary Disease
DX: J45.50 Severe persistent asthma, uncomplicated (principal); Z79.899 Other long term (current) drug therapy; Z88.5 Allergy status to narcotic agent; Z91.040 Latex allergy status; Z87.891 Personal history of nicotine dependence
CPT/HCPCS: 96372; J2357

== ENCOUNTER 2017-08-12 13:57 | Outpatient (CLI) | payer OTHER ==
[~2017-08-12] VITALS: Ht 160 cm; Wt 89.5 kg
[~2017-08-12 13:57] MED LIST changes: +ARNU1INH3 IN
[2017-08-12] MEDS ORDERED: OMALIZUMAB 150 MG (XOLAIR) VIAL (J2357) SC ONE (14:30)
== END 2017-08-12 15:30 | disposition home or self-care (01) ==
LOC: M INFU 13:57
PROVIDERS: ATTEND Internal Medicine Pulmonary Disease
DX: J45.50 Severe persistent asthma, uncomplicated (principal); R06.83 Snoring; Z79.899 Other long term (current) drug therapy; Z88.5 Allergy status to narcotic agent; Z91.040 Latex allergy status; Z87.891 Personal history of nicotine dependence

== ENCOUNTER 2017-08-26 11:22 | Outpatient (CLI) | payer OTHER ==
[2017-08-26] MEDS: OMALIZUMAB 150 MG (XOLAIR) VIAL (J2357) SC (11:48)
== END 2017-08-26 13:00 | disposition home or self-care (01) ==
LOC: M INFU 11:22
DX: J45.50 Severe persistent asthma, uncomplicated (principal); F41.9 Anxiety disorder, unspecified; Z79.899 Other long term (current) drug therapy; Z88.8 Allergy status to other drugs, medicaments and biological substances; Z91.040 Latex allergy status; Z87.891 Personal history of nicotine dependence
CPT/HCPCS: 96372

== ENCOUNTER 2017-09-11 11:22 | Outpatient (CLI) | payer OTHER ==
[2017-09-11] MEDS: OMALIZUMAB 150 MG (XOLAIR) VIAL (J2357) SC (11:49)
== END 2017-09-11 13:00 | disposition home or self-care (01) ==
LOC: M INFU 11:22
DX: J45.50 Severe persistent asthma, uncomplicated (principal); Z88.8 Allergy status to other drugs, medicaments and biological substances; Z91.040 Latex allergy status; Z88.5 Allergy status to narcotic agent; Z79.899 Other long term (current) drug therapy
CPT/HCPCS: 96372

== ENCOUNTER → 2017-09-15 | Outpatient (CLI) | payer OTHER | LOC: M RAD 12:46 | DX: M54.42 Lumbago with sciatica, left side (principal); M51.36 Other intervertebral disc degeneration, lumbar region | CPT/HCPCS: 72110 ==

== ENCOUNTER 2017-09-25 11:42 | Outpatient (CLI) | payer OTHER ==
[2017-09-25] MEDS: OMALIZUMAB 150 MG (XOLAIR) VIAL (J2357) SC (12:18)
== END 2017-09-25 13:15 | disposition home or self-care (01) ==
LOC: M INFU 11:42
DX: J45.50 Severe persistent asthma, uncomplicated (principal); Z79.899 Other long term (current) drug therapy; Z88.6 Allergy status to analgesic agent
CPT/HCPCS: J2357

== ENCOUNTER → 2017-10-07 | Outpatient (REF) | payer OTHER ==
[2017-10-07 14:15] LABS: ALBUMIN 3.7 GM/DL (3.2-5.2); ALBUMIN/GLOBULIN RATIO 1.06 (1.00-1.93); ALKALINE PHOSPHATASE 85 U/L (45-117); ALT/SGPT 38 U/L (12-78); ANION GAP 6 MEQ/L (8-16); AST/SGOT 22 U/L (7-37); BILIRUBIN,TOTAL 0.6 MG/DL (0.2-1.0); BLOOD UREA NITROGEN 12 MG/DL (7-18); CALCIUM LEVEL 9.4 MG/DL (8.5-10.1); CARBON DIOXIDE LEVEL 26 MEQ/L (21-32); CHLORIDE LEVEL 108 MEQ/L (98-107); CHOLESTEROL LEVEL 188 MG/DL (<200); CHOLESTEROL RISK RATIO 2.984 (<5); CREATININE FOR GFR 0.67 MG/DL (0.55-1.30); GLOMERULAR FILTRATION RATE > 60.0 (>51); GLUCOSE, FASTING 84 MG/DL (70-100); HDL CHOLESTEROL 63 MG/DL (>40); LDL CHOLESTEROL 87.4 MG/DL (<100); NON-HDL-C 125 MG/DL; POTASSIUM SERUM 4.6 MEQ/L (3.5-5.1); SODIUM LEVEL 140 MEQ/L (136-145); TOTAL PROTEIN 7.2 GM/DL (6.4-8.2); TRIGLYCERIDES LEVEL 188 MG/DL (<150)
[2017-10-07 14:18] LABS: ESTIMATED AVERAGE GLUCOSE 105 MG/DL (60-110); HEMOGLOBIN A1c 5.3 %
[2017-10-07 14:21] LABS: TOTAL 25(OH) VITAMIN D 25.4 NG/ML (30.0-100.0)
[2017-10-07 15:24] LABS: MALB URINE SIEMENS 11.9 MG/L; MAU/CREAT RATIO 6.9 MCG/MG (0.0-30.0)
== END ==
LOC: M SFHCPLAZ 11:17
DX: E11.9 Type 2 diabetes mellitus without complications (principal); E55.9 Vitamin D deficiency, unspecified

== ENCOUNTER 2017-10-09 11:50 | Outpatient (CLI) | payer OTHER ==
[2017-10-09] MEDS: OMALIZUMAB 150 MG (XOLAIR) VIAL (J2357) SC (12:13)
== END 2017-10-09 13:30 | disposition home or self-care (01) ==
LOC: M INFU 11:50
DX: J45.50 Severe persistent asthma, uncomplicated (principal); Z79.899 Other long term (current) drug therapy
CPT/HCPCS: J2357

== ENCOUNTER 2017-10-20 05:05 | Emergency (ER) | payer OTHER ==
[2017-10-20] MEDS: ASPIRIN 325 MG TAB PO (05:40)
[2017-10-20 05:53] LABS: ANION GAP 6 MEQ/L (8-16); BLOOD UREA NITROGEN 16 MG/DL (7-18); CALCIUM LEVEL 8.9 MG/DL (8.5-10.1); CARBON DIOXIDE LEVEL 26 MEQ/L (21-32); CHLORIDE LEVEL 110 MEQ/L (98-107); CPK CREATINE PHOSPHOKINASE 117 U/L (26-192); CREATININE FOR GFR 0.71 MG/DL (0.55-1.30); GLOMERULAR FILTRATION RATE > 60.0 (>51); GLUCOSE, FASTING 105 MG/DL (70-100); POTASSIUM SERUM 4.4 MEQ/L (3.5-5.1); SODIUM LEVEL 142 MEQ/L (136-145); TROPONIN I < 0.02 NG/ML (< 0.10)
[2017-10-20 05:55] LABS: CK-MB VALUE MASS 1.3 NG/ML (0.0-3.6); MB/CK RELATIVE INDEX 1.11 (< OR =4)
[2017-10-20 05:56] LABS: ETHYL ALCOHOL (ETHANOL) < 0.003 % (0.000-0.010)
[2017-10-20 05:57] LABS: BASO # 0.1 10^3/uL (0.0-0.2); EOS # 0.4 10^3/uL (0.0-0.50); EOS % 5.4 % (0.0-3.0); IMMATURE GRANULOCYTE % 0.4 % (0-3.0); LYMPH # 2.2 10^3/uL (1.5-4.5); LYMPH % 27.8 % (24.0-44.0); MEAN CORPUSCULAR HEMOGLOBIN 32.3 pg (27.0-33.0); MEAN CORPUSCULAR HGB CONC 34.8 g/dl (32.0-36.5); MEAN CORPUSCULAR VOLUME 92.9 fl (80.0-96.0); MONO # 0.5 10^3/uL (0.0-0.8); MONO % 5.8 % (0.0-5.0); NEUTROPHILS # 4.7 10^3/uL (1.8-7.7); NEUTROPHILS % 59.6 % (36.0-66.0); PLATELET COUNT, AUTOMATED 252 10^3/uL (150-450); RED BLOOD COUNT 4.95 10^6/uL (4.00-5.40); RED CELL DISTRIBUTION WIDTH 12.5 % (11.5-14.5); WHITE BLOOD COUNT 7.9 10^3/uL (4.0-10.0)
[2017-10-20 06:01] LABS: INR 0.92; PROTHROMBIN TIME 12.4 SECONDS (12.4-14.5)
[2017-10-20 06:02] LABS: PARTIAL THROMBOPLASTIN TIME 27.5 SECONDS (26.8-37.9)
[2017-10-20] MEDS ORDERED: ISOVUE-370 76% 100ML VIAL (Q9967) As Ordered (06:05)
[2017-10-20 11:20] LABS: CPK CREATINE PHOSPHOKINASE 86 U/L (26-192); MB/CK RELATIVE INDEX 1.16 (< OR =4); TROPONIN I < 0.02 NG/ML (< 0.10)
== END 2017-10-20 12:15 | disposition home or self-care (01) ==
LOC: M ED 05:05
DX: R07.89 Other chest pain (principal); J44.9 Chronic obstructive pulmonary disease, unspecified; J45.909 Unspecified asthma, uncomplicated; K21.9 Gastro-esophageal reflux disease without esophagitis; F33.9 Major depressive disorder, recurrent, unspecified; F41.9 Anxiety disorder, unspecified; F17.210 Nicotine dependence, cigarettes, uncomplicated; Z79.899 Other long term (current) drug therapy; Z98.890 Other specified postprocedural states; Z88.8 Allergy status to other drugs, medicaments and biological substances; Z91.040 Latex allergy status
CPT/HCPCS: Q9967

== ENCOUNTER 2017-10-26 10:35 | Outpatient (CLI) | payer OTHER ==
[2017-10-26] MEDS: OMALIZUMAB 150 MG (XOLAIR) VIAL (J2357) SC (11:09)
== END 2017-10-26 12:00 | disposition home or self-care (01) ==
LOC: M INFU 10:35
DX: J45.50 Severe persistent asthma, uncomplicated (principal); F41.9 Anxiety disorder, unspecified; Z79.899 Other long term (current) drug therapy; Z88.5 Allergy status to narcotic agent; Z91.040 Latex allergy status; Z87.891 Personal history of nicotine dependence
CPT/HCPCS: J2357

== ENCOUNTER 2017-11-10 14:02 | Outpatient (CLI) | payer OTHER ==
[2017-11-10] MEDS: OMALIZUMAB 150 MG (XOLAIR) VIAL (J2357) SC (14:41)
== END 2017-11-10 15:15 | disposition home or self-care (01) ==
LOC: M INFU 14:02
DX: J45.50 Severe persistent asthma, uncomplicated (principal); Z91.040 Latex allergy status; Z88.0 Allergy status to penicillin; Z88.5 Allergy status to narcotic agent; Z88.8 Allergy status to other drugs, medicaments and biological substances; Z79.899 Other long term (current) drug therapy
CPT/HCPCS: J2357

== ENCOUNTER 2017-11-16 06:25 | Emergency (ER) | payer OTHER ==
[2017-11-16] MEDS: ACETAMINOPHEN 325 MG TAB PO (08:11)
== END 2017-11-16 10:14 | disposition home or self-care (01) ==
LOC: M ED 06:25
DX: M77.9 Enthesopathy, unspecified (principal); J45.909 Unspecified asthma, uncomplicated; K21.9 Gastro-esophageal reflux disease without esophagitis; F17.200 Nicotine dependence, unspecified, uncomplicated; Z79.899 Other long term (current) drug therapy; Z88.8 Allergy status to other drugs, medicaments and biological substances; Z91.040 Latex allergy status; Z98.84 Bariatric surgery status; Z98.890 Other specified postprocedural states
CPT/HCPCS: 93971

== ENCOUNTER 2017-11-21 00:57 | Emergency (ER) | payer OTHER ==
[2017-11-21 01:47] LABS: BASO # 0.1 10^3/uL (0.0-0.2); BASO % 0.7 % (0.0-1.0); EOS # 0.3 10^3/uL (0.0-0.50); EOS % 2.5 % (0.0-3.0); HEMATOCRIT 42.8 % (36.0-47.0); HEMOGLOBIN 14.8 g/dl (12.0-15.5); IMMATURE GRANULOCYTE % 0.2 % (0-3.0); LYMPH # 2.9 10^3/uL (1.5-4.5); LYMPH % 29.5 % (24.0-44.0); MEAN CORPUSCULAR HGB CONC 34.6 g/dl (32.0-36.5); MEAN CORPUSCULAR VOLUME 92.4 fl (80.0-96.0); MONO # 0.6 10^3/uL (0.0-0.8); MONO % 5.8 % (0.0-5.0); NEUTROPHILS % 61.3 % (36.0-66.0); PLATELET COUNT, AUTOMATED 232 10^3/uL (150-450); RED BLOOD COUNT 4.63 10^6/uL (4.00-5.40); RED CELL DISTRIBUTION WIDTH 12.5 % (11.5-14.5); WHITE BLOOD COUNT 9.8 10^3/uL (4.0-10.0)
[2017-11-21 01:57] LABS: ALBUMIN 3.7 GM/DL (3.2-5.2); ALBUMIN/GLOBULIN RATIO 1.16 (1.00-1.93); ALKALINE PHOSPHATASE 79 U/L (45-117); ALT/SGPT 36 U/L (12-78); ANION GAP 10 MEQ/L (8-16); AST/SGOT 24 U/L (7-37); BILIRUBIN,DIRECT 0.2 MG/DL (0.0-0.2); BILIRUBIN,TOTAL 0.8 MG/DL (0.2-1.0); BLOOD UREA NITROGEN 6 MG/DL (7-18); CALCIUM LEVEL 8.6 MG/DL (8.5-10.1); CARBON DIOXIDE LEVEL 21 MEQ/L (21-32); CHLORIDE LEVEL 103 MEQ/L (98-107); CPK CREATINE PHOSPHOKINASE 244 U/L (26-192); ETHYL ALCOHOL (ETHANOL) 0.227 % (0.000-0.010); GLOMERULAR FILTRATION RATE > 60.0 (>51); GLUCOSE, FASTING 98 MG/DL (70-100); POTASSIUM SERUM 3.6 MEQ/L (3.5-5.1); SALICYLATE LEVEL 2.7 MG/DL (5.0-30.0); SODIUM LEVEL 134 MEQ/L (136-145); TOTAL PROTEIN 6.9 GM/DL (6.4-8.2)
[2017-11-21 02:00] LABS: ACETAMINOPHEN LEVEL < 2.0 UG/ML (10.0-30.0)
[2017-11-21 02:40] LABS: AMPHETAMINES LEVEL URINE NEGATIVE (NEGATIVE); BARBITURATES URINE NEGATIVE (NEGATIVE); BENZODIAZEPINES URINE NEGATIVE (NEGATIVE); CANNABINOIDS URINE NEGATIVE (NEGATIVE); COCAINE METABOLITE URINE NEGATIVE (NEGATIVE); METHADONE URINE NEGATIVE (NEGATIVE); OPIATES URINE NEGATIVE (NEGATIVE); PHENCYCLIDINE URINE NEGATIVE (NEGATIVE)
== END 2017-11-21 04:25 | disposition home or self-care (01) ==
LOC: M ED 00:57
DX: F10.929 Alcohol use, unspecified with intoxication, unspecified (principal); E11.9 Type 2 diabetes mellitus without complications; K21.9 Gastro-esophageal reflux disease without esophagitis; F41.9 Anxiety disorder, unspecified; Z88.8 Allergy status to other drugs, medicaments and biological substances; Z91.040 Latex allergy status
CPT/HCPCS: 70450

== ENCOUNTER 2017-12-03 15:36 | Outpatient (CLI) | payer OTHER ==
[2017-12-03] MEDS: OMALIZUMAB 150 MG (XOLAIR) VIAL (J2357) SC (16:10)
== END 2017-12-03 17:00 | disposition home or self-care (01) ==
LOC: M INFU 15:36
DX: J45.50 Severe persistent asthma, uncomplicated (principal); Z79.899 Other long term (current) drug therapy; Z91.040 Latex allergy status
CPT/HCPCS: J2357

== ENCOUNTER 2017-12-17 15:44 | Outpatient (CLI) | payer OTHER ==
[2017-12-17] MEDS: OMALIZUMAB 150 MG (XOLAIR) VIAL (J2357) SC (15:59)
== END 2017-12-17 17:10 | disposition home or self-care (01) ==
LOC: M INFU 15:44
DX: J45.50 Severe persistent asthma, uncomplicated (principal); Z91.040 Latex allergy status; Z88.5 Allergy status to narcotic agent; Z88.8 Allergy status to other drugs, medicaments and biological substances; Z98.84 Bariatric surgery status; Z79.899 Other long term (current) drug therapy
CPT/HCPCS: J2357

== ENCOUNTER → 2018-02-12 | Outpatient (CLI) | payer OTHER, MEDICAID ==
[2018-02-12 11:43] LABS: ANION GAP 9 MEQ/L (8-16); BLOOD UREA NITROGEN 11 MG/DL (7-18); CALCIUM LEVEL 9.1 MG/DL (8.5-10.1); CARBON DIOXIDE LEVEL 24 MEQ/L (21-32); CHLORIDE LEVEL 109 MEQ/L (98-107); CREATININE FOR GFR 0.78 MG/DL (0.55-1.30); GLOMERULAR FILTRATION RATE > 60.0 (>51); GLUCOSE, FASTING 93 MG/DL (70-100); POTASSIUM SERUM 4.7 MEQ/L (3.5-5.1); SODIUM LEVEL 142 MEQ/L (136-145)
== END ==
LOC: M LAB 10:14
DX: Z01.812 Encounter for preprocedural laboratory examination (principal); R94.31 Abnormal electrocardiogram [ECG] [EKG]
CPT/HCPCS: 93005

== ENCOUNTER 2018-03-30 13:53 | Outpatient (CLI) | payer OTHER ==
[2018-03-30] MEDS ORDERED: MIXING FEE FOR PATIENT OWN MEDS SUPPLIED BY INSURANCE/PT XX (14:00)
[2018-03-30] MEDS: OMALIZUMAB 150 MG (XOLAIR) VIAL (J2357) SC (14:14)
== END 2018-03-30 15:00 | disposition home or self-care (01) ==
LOC: M INFU 13:53
DX: J45.50 Severe persistent asthma, uncomplicated (principal); Z91.040 Latex allergy status; Z88.8 Allergy status to other drugs, medicaments and biological substances; Z79.899 Other long term (current) drug therapy; Z98.84 Bariatric surgery status
CPT/HCPCS: 96372

== ENCOUNTER 2018-05-18 13:22 | Outpatient (CLI) | payer OTHER ==
[2018-05-18] MEDS: OMALIZUMAB 150 MG (XOLAIR) VIAL (J2357) SC (14:03)
== END 2018-05-18 14:30 | disposition home or self-care (01) ==
LOC: M INFU 13:22
DX: J45.50 Severe persistent asthma, uncomplicated (principal); Z91.040 Latex allergy status; Z79.899 Other long term (current) drug therapy
CPT/HCPCS: 96372

== ENCOUNTER 2018-06-01 13:26 | Outpatient (CLI) | payer OTHER ==
[2018-06-01] MEDS: OMALIZUMAB 150 MG (XOLAIR) VIAL (J2357) SC (14:09)
== END 2018-06-01 14:30 | disposition home or self-care (01) ==
LOC: M INFU 13:26
DX: J45.50 Severe persistent asthma, uncomplicated (principal); Z79.899 Other long term (current) drug therapy; Z91.040 Latex allergy status
CPT/HCPCS: 96372

== ENCOUNTER → 2018-06-14 | Outpatient (REF) | payer OTHER ==
[2018-06-14 11:36] LABS: ALBUMIN 3.6 GM/DL (3.2-5.2); ALBUMIN/GLOBULIN RATIO 1.06 (1.00-1.93); ALKALINE PHOSPHATASE 88 U/L (45-117); ALT/SGPT 31 U/L (12-78); ANION GAP 8 MEQ/L (8-16); AST/SGOT 17 U/L (7-37); BILIRUBIN,TOTAL 0.8 MG/DL (0.2-1.0); BLOOD UREA NITROGEN 7 MG/DL (7-18); CALCIUM LEVEL 9.1 MG/DL (8.5-10.1); CARBON DIOXIDE LEVEL 25 MEQ/L (21-32); CHLORIDE LEVEL 108 MEQ/L (98-107); CREATININE FOR GFR 0.82 MG/DL (0.55-1.30); FREE T4 0.79 NG/DL (0.76-1.46); GLOMERULAR FILTRATION RATE > 60.0 (>51); GLUCOSE, FASTING 109 MG/DL (70-100); MAGNESIUM LEVEL 2.2 MG/DL (1.8-2.4); POTASSIUM SERUM 4.6 MEQ/L (3.5-5.1); SODIUM LEVEL 141 MEQ/L (136-145); TOTAL 25(OH) VITAMIN D 30.4 NG/ML (30.0-100.0)
== END ==
LOC: M SFHCPLAZ 08:45
DX: E11.9 Type 2 diabetes mellitus without complications (principal); F41.1 Generalized anxiety disorder; K21.9 Gastro-esophageal reflux disease without esophagitis; E55.9 Vitamin D deficiency, unspecified

== ENCOUNTER 2018-07-02 07:21 | Outpatient (CLI) | payer OTHER ==
[2018-07-02] MEDS: OMALIZUMAB 150 MG (XOLAIR) VIAL (J2357) SC (08:11)
== END 2018-07-02 08:30 | disposition home or self-care (01) ==
LOC: M INFU 07:21
DX: J45.50 Severe persistent asthma, uncomplicated (principal); Z91.040 Latex allergy status
CPT/HCPCS: 96372

== ENCOUNTER → 2018-08-03 | Outpatient (CLI) | payer OTHER | LOC: M WHC 08:41 | DX: Z12.31 Encounter for screening mammogram for malignant neoplasm of breast (principal); Z80.3 Family history of malignant neoplasm of breast | CPT/HCPCS: 77067 ==

== ENCOUNTER → 2018-08-03 | Outpatient (CLI) | payer OTHER | LOC: M SMT 09:58 | DX: J06.9 Acute upper respiratory infection, unspecified (principal) | CPT/HCPCS: 71046 ==

== ENCOUNTER 2018-08-06 11:35 | Outpatient (CLI) | payer OTHER ==
[~2018-08-06] VITALS: Ht 160 cm; Wt 89.1 kg
[~2018-08-06 11:35] MED LIST changes: +BUSP1TAB PO; +DULE100A; +LEXA1TAB2 PO; +PROP60TA14 PO; +TRAZ-160 PO; +TRIL150T PO; +TRIL1TAB PO; -ZOFR20TA PO; +ZOFR4TAB16 PO
[2018-08-06 11:43] VITALS: BP 126/74
[2018-08-06] MEDS ORDERED: OMALIZUMAB 150 MG (XOLAIR) VIAL (J2357) SC ONE (11:45)
[2018-08-06 13:00] VITALS: BP 140/81
== END 2018-08-06 13:00 | disposition home or self-care (01) ==
LOC: M INFU 11:35
PROVIDERS: ATTEND Internal Medicine Pulmonary Disease
DX: J45.50 Severe persistent asthma, uncomplicated (principal); Z91.040 Latex allergy status

== ENCOUNTER → 2018-08-09 | Outpatient (REF) | payer OTHER ==
[2018-08-09 17:21] LABS: BASO # 0.1 10^3/uL (0.0-0.2); BASO % 0.7 % (0.0-1.0); EOS # 0.4 10^3/uL (0.0-0.50); EOS % 3.6 % (0.0-3.0); HEMATOCRIT 42.4 % (36.0-47.0); HEMOGLOBIN 14.7 g/dl (12.0-15.5); LYMPH # 2.2 10^3/uL (1.5-4.5); LYMPH % 20.6 % (24.0-44.0); MEAN CORPUSCULAR HEMOGLOBIN 32.5 pg (27.0-33.0); MEAN CORPUSCULAR HGB CONC 34.7 g/dl (32.0-36.5); MEAN CORPUSCULAR VOLUME 93.6 fl (80.0-96.0); MONO # 0.6 10^3/uL (0.0-0.8); MONO % 5.7 % (0.0-5.0); NEUTROPHILS # 7.3 10^3/uL (1.8-7.7); NEUTROPHILS % 69.1 % (36.0-66.0); PLATELET COUNT, AUTOMATED 284 10^3/uL (150-450); RED BLOOD COUNT 4.53 10^6/uL (4.00-5.40); WHITE BLOOD COUNT 10.5 10^3/uL (4.0-10.0)
[2018-08-09 17:35] LABS: INR 0.87; PROTHROMBIN TIME 11.9 SECONDS (12.1-14.4)
[2018-08-09 17:46] LABS: HEMOGLOBIN A1c 5.7 %
[2018-08-09 17:51] LABS: ALBUMIN 3.7 GM/DL (3.2-5.2); ALT/SGPT 39 U/L (12-78); BILIRUBIN,TOTAL 0.5 MG/DL (0.2-1.0); BLOOD UREA NITROGEN 13 MG/DL (7-18); CALCIUM LEVEL 8.8 MG/DL (8.5-10.1); CARBON DIOXIDE LEVEL 27 MEQ/L (21-32); CHLORIDE LEVEL 106 MEQ/L (98-107); CREATININE FOR GFR 0.72 MG/DL (0.55-1.30); GLOMERULAR FILTRATION RATE > 60.0 (>51); GLUCOSE, FASTING 89 MG/DL (70-100); POTASSIUM SERUM 4.4 MEQ/L (3.5-5.1); SODIUM LEVEL 141 MEQ/L (136-145); TOTAL PROTEIN 6.9 GM/DL (6.4-8.2)
== END ==
LOC: M SFHCPLAZ 15:29
PROVIDERS: ATTEND Family Medicine
DX: J45.50 Severe persistent asthma, uncomplicated (principal)

== ENCOUNTER 2018-09-03 11:59 | Outpatient (CLI) | payer OTHER ==
[~2018-09-03] VITALS: Ht 160 cm; Wt 89.0 kg
[2018-09-03] MEDS ORDERED: OMALIZUMAB 150 MG (XOLAIR) VIAL (J2357) SC ONE (12:00)
[2018-09-03 12:10] VITALS: BP 171/80
[2018-09-03 13:00] VITALS: BP 157/77
== END 2018-09-03 13:00 | disposition home or self-care (01) ==
LOC: M INFU 11:59
PROVIDERS: ATTEND Internal Medicine Pulmonary Disease
DX: J45.50 Severe persistent asthma, uncomplicated (principal); Z79.899 Other long term (current) drug therapy

== ENCOUNTER 2018-09-22 13:39 | Outpatient (CLI) | payer OTHER ==
[~2018-09-22] VITALS: Ht 160 cm; Wt 89.0 kg
[2018-09-22] MEDS ORDERED: OMALIZUMAB 150 MG (XOLAIR) VIAL (J2357) SC ONE (14:00)
[2018-09-22 14:04] VITALS: BP 127/68
[2018-09-22 15:00] VITALS: BP 124/78
== END 2018-09-22 15:00 | disposition home or self-care (01) ==
LOC: M INFU 13:39
PROVIDERS: ATTEND Internal Medicine Pulmonary Disease
DX: J45.50 Severe persistent asthma, uncomplicated (principal); Z91.040 Latex allergy status; Z79.899 Other long term (current) drug therapy

== ENCOUNTER → 2018-10-05 | Outpatient (REF) | payer OTHER, MEDICAID ==
[2018-10-05 16:40] LABS: BASO # 0.1 10^3/uL (0.0-0.2); BASO % 0.8 % (0.0-1.0); EOS # 0.3 10^3/uL (0.0-0.50); EOS % 3.4 % (0.0-3.0); HEMATOCRIT 42.2 % (36.0-47.0); HEMOGLOBIN 14.6 g/dl (12.0-15.5); LYMPH # 1.9 10^3/uL (1.5-4.5); LYMPH % 20.9 % (24.0-44.0); MEAN CORPUSCULAR HEMOGLOBIN 32.6 pg (27.0-33.0); MEAN CORPUSCULAR HGB CONC 34.6 g/dl (32.0-36.5); MEAN CORPUSCULAR VOLUME 94.2 fl (80.0-96.0); MONO # 0.5 10^3/uL (0.0-0.8); MONO % 5.4 % (0.0-5.0); NEUTROPHILS # 6.4 10^3/uL (1.8-7.7); NEUTROPHILS % 69.2 % (36.0-66.0); PLATELET COUNT, AUTOMATED 289 10^3/uL (150-450); RED BLOOD COUNT 4.48 10^6/uL (4.00-5.40); WHITE BLOOD COUNT 9.2 10^3/uL (4.0-10.0)
[2018-10-05 17:05] LABS: ERYTHROCYTE SEDIMENTATION RATE 18 mm/hr (0-30)
== END ==
LOC: M LABDRAW1 15:42
PROVIDERS: ATTEND Physician Assistant Surgical
DX: Z47.1 Aftercare following joint replacement surgery (principal)

== ENCOUNTER → 2018-10-22 | Outpatient (REF) | payer OTHER ==
[2018-10-22 12:09] LABS: HEMATOCRIT 44.8 % (36.0-47.0)
[2018-10-22 12:33] LABS: ALBUMIN 3.8 GM/DL (3.2-5.2); ALT/SGPT 31 U/L (12-78); BILIRUBIN,TOTAL 0.7 MG/DL (0.2-1.0); BLOOD UREA NITROGEN 11 MG/DL (7-18); CARBON DIOXIDE LEVEL 25 MEQ/L (21-32); CHLORIDE LEVEL 108 MEQ/L (98-107); CHOLESTEROL LEVEL 213 MG/DL (<200); CHOLESTEROL RISK RATIO 3.803 (<5); CREATININE FOR GFR 0.74 MG/DL (0.55-1.30); FERRITIN 26 NG/ML (8-252); FOLATE 5.4 NG/ML; GLOMERULAR FILTRATION RATE > 60.0 (>51); GLUCOSE, FASTING 115 MG/DL (70-100); HDL CHOLESTEROL 56 MG/DL (>40); IRON (FE) 113 UG/DL (50-170); LDL CHOLESTEROL 126 MG/DL (<100); NON-HDL-C 157 MG/DL; POTASSIUM SERUM 4.5 MEQ/L (3.5-5.1); SODIUM LEVEL 141 MEQ/L (136-145); TOTAL 25(OH) VITAMIN D 26.6 NG/ML (30.0-100.0); TRIGLYCERIDES LEVEL 156 MG/DL (<150); VITAMIN B12 LEVEL 1080 PG/ML
[2018-10-22 12:40] LABS: HEMOGLOBIN A1c 5.5 %
[2018-10-22 12:50] LABS: CREATININE, URINE 83.2 MG/DL; MALB URINE SIEMENS < 5.0 MG/L
== END ==
LOC: M SFHCPLAZ 09:03
PROVIDERS: ATTEND Nurse Practitioner Family
DX: E11.9 Type 2 diabetes mellitus without complications (principal); E55.9 Vitamin D deficiency, unspecified; Z98.84 Bariatric surgery status

== ENCOUNTER → 2018-11-01 | Outpatient (CLI) | payer OTHER, MEDICAID ==
--- NOTE | 2018-11-02 02:38 | REP ---
Clinical: Bilateral lower back pain . Technique: AP, lateral, bilateral oblique, and coned-down views. Findings: Alignment and lordosis is maintained. The vertebral bodies including transverse process and spinous processes are intact and normal. There is no evidence for acute fracture / compression injury or subluxation. No evidence for spondylolysis or spondylolisthesis. No significant degenerative change is noted. Impression: Age appropriate lumbosacral spine radiograph series. Electronically Signed by Huy Corbett MD 11/02/2018 02:28 A
== END ==
LOC: M RAD 11:46
PROVIDERS: ATTEND Nurse Practitioner Family
DX: M54.5 Low back pain (principal)

== ENCOUNTER → 2018-11-14 | Outpatient (CLI) | payer OTHER ==
[~2018-11-14] MED LIST changes: +LIPI80TA PO
--- NOTE | 2018-11-17 13:44 | SLEEPCENT ---
DATE OF PROCEDURE: 11/14/2018 ORDERED BY: Dr. Mitchell Nocturnal polysomnography was performed for retitration of pressure therapy in this patient with obstructive sleep apnea syndrome. For testing, a ResMed Quattro full face mask of small size was used and 4 cm of water pressure were applied to the circuit and the lights were extinguished. 8 hours and 19 minutes of data were reviewed. There were 374 minutes of sleep identified. Sleep latency was prolonged 24 minutes. Rapid eye movement (REM) latency was prolonged at 174 minutes. Sleep architecture was fair. There was a period wake between 2:00 and 3:00 a.m. resulting in a reduced sleep efficiency of 75.9%. There 2 REM periods during the study. Overall sleep efficiency was 75.9%. The electrocardiogram showed a sinus rhythm with an average heart rate of 75 beats per minute. Electroencephalogram (EEG) showed normal waveforms for awake and sleep. Respiratory events were fully palliated with C-PAP at a pressure of +6. Some limb activity was noted. There were 2 trains of 30 events. Limb movement arousal index was 10.3, up from the previous titration study in 2017. IMPRESSION: 1. Obstruction obstructive sleep apnea syndrome (G47.33). 2. Possible periodic limb movement disorder (G47.61). Limb movement arousal index 10.3. RECOMMENDATION: Nightly use of pressure therapy at 6 cm of water should be sufficient to address the obstructive respiratory events. Sleep architecture may further improve with interventions to reduce the frequency of arousals from limb activity.
== END ==
LOC: M SLEEP 20:00
PROVIDERS: ATTEND Internal Medicine Pulmonary Disease
DX: G47.33 Obstructive sleep apnea (adult) (pediatric) (principal)

== ENCOUNTER 2018-11-18 16:10 | Emergency (ER) | payer OTHER ==
[~2018-11-18] VITALS: Ht 162.6 cm; Wt 99.1 kg
[~2018-11-18 16:10] MED LIST changes: +PRED-351 PO; -PRED10TA PO; -VITA100T20 PO; +VITA100T51 PO
[2018-11-18] MEDS ORDERED: KETOROLAC 30 MG/ML VIAL (J1885) IM ONE (18:00)
[2018-11-18] MEDS ORDERED: ROBA500T PO (18:55)
[2018-11-18] MEDS ORDERED: METHOCARBAMOL 500 MG TAB PO ONE (19:00)
[2018-11-18 19:14] VITALS: BP 135/82
--- NOTE | 2018-11-18 19:35 | REP ---
Clinical: Lower back pain. Technique: AP, lateral, bilateral oblique and coned-down views of the lumbosacral spine. Antwon: 09/17/2016. Findings: Alignment and lordosis maintained. No acute fracture / compression injury or subluxation. Hypertrophic facet changes at L5-L1 are noted. Remainder examination appears relatively normal for age. Impression: Essentially age-appropriate lumbosacral spine radiograph series. Electronically Signed by Huy Corbett MD 11/18/2018 07:26 P
== END 2018-11-18 19:15 | disposition home or self-care (01) ==
LOC: M ED 16:10
DX: S39.012A Strain of muscle, fascia and tendon of lower back, initial encounter (principal); X50.9XXA Other and unspecified overexertion or strenuous movements or postures, initial encounter; Y92.89 Other specified places as the place of occurrence of the external cause; Y93.89 Activity, other specified; E11.9 Type 2 diabetes mellitus without complications; J45.909 Unspecified asthma, uncomplicated; K21.9 Gastro-esophageal reflux disease without esophagitis; F17.210 Nicotine dependence, cigarettes, uncomplicated; Z98.0 Intestinal bypass and anastomosis status; Z79.899 Other long term (current) drug therapy
CPT/HCPCS: 72110; 96372; 99283; J1885

== ENCOUNTER → 2018-11-22 | Outpatient (REF) | payer OTHER ==
[~2018-11-22] MED LIST changes: -PRED-351 PO; +PRED10TA PO; +VITA100T20 PO; -VITA100T51 PO
[2018-11-22 13:35] LABS: APPEARANCE, URINE CLEAR (CLEAR); BACTERIA, URINE AUTO NEGATIVE (NEGATIVE); BILIRUBIN, URINE AUTO NEGATIVE (NEGATIVE); BLOOD, URINE BLOOD NEGATIVE (NEGATIVE); COLOR, URINE YELLOW (YELLOW); GLUCOSE, URINE (UA) AUTO NEGATIVE (NEGATIVE); KETONE, URINE AUTO NEGATIVE (NEGATIVE); LEUKOCYTE ESTERASE, URINE AUTO NEGATIVE (NEGATIVE); NITRITE, URINE AUTO NEGATIVE (NEGATIVE); PROTEIN, URINE AUTO NEGATIVE (NEGATIVE); RBC, URINE AUTO 0 /HPF (0-3); SPECIFIC GRAVITY URINE AUTO 1.006 (1.002-1.035); SQUAMOUS EPITHELIAL CELL UR AU 1 /HPF (0-6); UROBILINOGEN, URINE AUTO 0.2 mg/dL (0.0-2.0); WBC, URINE AUTO 1 /HPF (0-3)
== END ==
LOC: M SFHCPLAZ 12:48
PROVIDERS: ATTEND Family Medicine
DX: N93.9 Abnormal uterine and vaginal bleeding, unspecified (principal)

== ENCOUNTER 2018-12-08 11:02 | Outpatient (CLI) | payer OTHER ==
[~2018-12-08] VITALS: Ht 160 cm; Wt 96.4 kg
[~2018-12-08 11:02] MED LIST changes: +PRED-351 PO; -PRED10TA PO; -VITA100T20 PO; +VITA100T51 PO
[2018-12-08 11:07] VITALS: BP 129/62
[2018-12-08] MEDS ORDERED: OMALIZUMAB 150 MG (XOLAIR) VIAL (J2357) SC ONE (11:30)
[2018-12-08 12:06] VITALS: BP 143/81
== END 2018-12-08 12:20 | disposition home or self-care (01) ==
LOC: M INFU 11:02
PROVIDERS: ATTEND Internal Medicine Pulmonary Disease
DX: J45.50 Severe persistent asthma, uncomplicated (principal); Z79.899 Other long term (current) drug therapy; Z91.040 Latex allergy status

== ENCOUNTER 2019-01-05 09:40 | Outpatient (CLI) | payer OTHER ==
[~2019-01-05] VITALS: Ht 160 cm; Wt 96.4 kg
[2019-01-05 09:40] VITALS: BP 134/73
[2019-01-05] MEDS ORDERED: OMALIZUMAB 150 MG (XOLAIR) VIAL (J2357) SC ONE (09:45)
[2019-01-05 10:40] VITALS: BP 149/72
== END 2019-01-05 10:40 | disposition home or self-care (01) ==
LOC: M INFU 09:40
PROVIDERS: ATTEND Internal Medicine Pulmonary Disease
DX: J45.50 Severe persistent asthma, uncomplicated (principal); Z91.040 Latex allergy status; Z79.899 Other long term (current) drug therapy

== ENCOUNTER → 2019-03-04 | Outpatient (REF) | payer OTHER ==
[~2019-03-04] MED LIST changes: -OMEP20CA3 PO; +OMEP20CA4 PO; -TRAZ-160 PO; +TRAZ-252 PO
[2019-03-04 10:24] LABS: ALBUMIN 3.8 GM/DL (3.2-5.2); ALT/SGPT 38 U/L (12-78); BILIRUBIN,TOTAL 0.6 MG/DL (0.2-1.0); BLOOD UREA NITROGEN 11 MG/DL (7-18); CALCIUM LEVEL 9.4 MG/DL (8.5-10.1); CARBON DIOXIDE LEVEL 27 MEQ/L (21-32); CHLORIDE LEVEL 110 MEQ/L (98-107); CHOLESTEROL LEVEL 120 MG/DL (<200); CHOLESTEROL RISK RATIO 1.846 (<5); CREATININE FOR GFR 0.73 MG/DL (0.55-1.30); FREE T4 0.74 NG/DL (0.76-1.46); GLOMERULAR FILTRATION RATE > 60.0 (>51); GLUCOSE, FASTING 115 MG/DL (70-100); HDL CHOLESTEROL 65 MG/DL (>40); LDL CHOLESTEROL 38 MG/DL (<100); NON-HDL-C 55 MG/DL; POTASSIUM SERUM 4.5 MEQ/L (3.5-5.1); SODIUM LEVEL 142 MEQ/L (136-145); THYROID STIMULATING HORMONE 0.655 uIU/ML (0.358-3.740); TOTAL PROTEIN 6.9 GM/DL (6.4-8.2); TRIGLYCERIDES LEVEL 85 MG/DL (<150)
== END ==
LOC: M SFHCPLAZ 08:41
PROVIDERS: ATTEND Nurse Practitioner Family
DX: E78.2 Mixed hyperlipidemia (principal); E11.9 Type 2 diabetes mellitus without complications

== ENCOUNTER → 2019-03-16 | Outpatient (REF) ==
[~2019-03-16] MED LIST changes: +ONDA4TAB6 PO
[2019-03-16 19:11] LABS: BASO # 0.1 10^3/uL (0.0-0.2); BASO % 0.8 % (0.0-1.0); EOS # 0.3 10^3/uL (0.0-0.50); EOS % 3.3 % (0.0-3.0); HEMATOCRIT 41.7 % (36.0-47.0); LYMPH # 2.3 10^3/uL (1.5-4.5); LYMPH % 22.4 % (24.0-44.0); MEAN CORPUSCULAR HEMOGLOBIN 32.3 pg (27.0-33.0); MEAN CORPUSCULAR HGB CONC 33.6 g/dl (32.0-36.5); MEAN CORPUSCULAR VOLUME 96.3 fl (80.0-96.0); MONO # 0.6 10^3/uL (0.0-0.8); MONO % 5.7 % (0.0-5.0); NEUTROPHILS # 7.1 10^3/uL (1.8-7.7); NEUTROPHILS % 67.5 % (36.0-66.0); PLATELET COUNT, AUTOMATED 253 10^3/uL (150-450); RED BLOOD COUNT 4.33 10^6/uL (4.00-5.40); WHITE BLOOD COUNT 10.4 10^3/uL (4.0-10.0)
== END ==
LOC: M LABSMT 17:03
PROVIDERS: ATTEND Allergy & Immunology Allergy
DX: J45.50 Severe persistent asthma, uncomplicated (principal)

== ENCOUNTER 2019-03-24 10:22 | Emergency (ER) | payer OTHER ==
[~2019-03-24 10:22] MED LIST changes: +OMEP1CAP73 PO; -OMEP20CA4 PO; -OMEP40CA2 PO; +OMEP40CA97 PO; -ONDA4TAB6 PO
[2019-03-24] MEDS ORDERED: NS 1,000 ML IV ONE (10:45)
[2019-03-24] MEDS ORDERED: METOCLOPRAMIDE INJ 10MG/2ML VIAL (J2765) IV ONE (10:45)
[2019-03-24] MEDS ORDERED: ACETAMINOPHEN 325 MG TAB PO ONE (10:45)
[2019-03-24] MEDS ORDERED: ONDA4TAB6 PO (12:41)
[2019-03-24 12:51] VITALS: BP 122/68
[2019-06-12] MEDS ORDERED: MECL1TAB31 PO (13:16)
== END 2019-03-24 13:05 | disposition home or self-care (01) ==
LOC: M ED 10:22 → EDBD 10:22 → M ED 13:05
DX: G43.909 Migraine, unspecified, not intractable, without status migrainosus (principal); J45.909 Unspecified asthma, uncomplicated; Z79.899 Other long term (current) drug therapy; Z88.8 Allergy status to other drugs, medicaments and biological substances; Z91.040 Latex allergy status; F17.210 Nicotine dependence, cigarettes, uncomplicated
CPT/HCPCS: 96361; 96374; 99284; J2765

== ENCOUNTER 2019-03-31 13:22 | Outpatient (CLI) | payer OTHER ==
[~2019-03-31] VITALS: Ht 162.6 cm; Wt 98.1 kg
[~2019-03-31 13:22] MED LIST changes: -OMEP1CAP73 PO; +OMEP20CA4 PO; +OMEP40CA2 PO; -OMEP40CA97 PO; +ONDA4TAB6 PO
[2019-03-31 13:25] VITALS: BP 117/63
[2019-03-31] MEDS ORDERED: OMALIZUMAB 150 MG (XOLAIR) VIAL (J2357) SC ONE (14:00)
[2019-03-31 15:00] VITALS: BP 116/66
== END 2019-03-31 15:00 | disposition home or self-care (01) ==
LOC: M INFU 13:22
PROVIDERS: ATTEND Internal Medicine Pulmonary Disease
DX: J45.50 Severe persistent asthma, uncomplicated (principal); Z79.51 Long term (current) use of inhaled steroids; Z79.899 Other long term (current) drug therapy

== ENCOUNTER → 2019-04-19 | Outpatient (CLI) | payer OTHER, MEDICAID ==
[2019-04-19 15:06] LABS: FREE T4 0.91 NG/DL (0.76-1.46); RHEUMATOID FACTOR QUANT < 10.0 IU/ML (<15.0)
[2019-04-19 15:56] LABS: HEMOGLOBIN A1c 5.8 %
[2019-04-21 20:21] LABS: VITAMIN B12 LEVEL 1028 PG/ML (247-911)
[2019-04-21 20:22] LABS: FOLATE 6.3 NG/ML (>5.4)
[2019-04-23 15:01] LABS: ANTINUCLEAR ANTIBODIES DIRECT Negative (Negative); VITAMIN B1 LEVEL WHOLE BLOOD 135.3 nmol/L (66.5-200.0); VITAMIN B6,PYRIDOXAL PHOSPHATE 4.9 ug/L (2.0-32.8)
== END ==
LOC: M LAB 10:59
PROVIDERS: ATTEND Psychiatry & Neurology Neurology
DX: E11.9 Type 2 diabetes mellitus without complications (principal); R51 Headache; E07.9 Disorder of thyroid, unspecified; R20.0 Anesthesia of skin

== ENCOUNTER 2019-05-05 12:27 | Outpatient (CLI) | payer OTHER ==
[~2019-05-05] VITALS: Ht 160 cm; Wt 98.4 kg
[~2019-05-05 12:27] MED LIST changes: +OMEP1CAP73 PO; -OMEP20CA4 PO; -OMEP40CA2 PO; +OMEP40CA97 PO
[2019-05-05 12:30] VITALS: BP 134/77
[2019-05-05] MEDS ORDERED: OMALIZUMAB 150MG 1ML SYRINGE (XOLAIR) (J2357 PER 5MG) SQ ONE (13:00)
[2019-05-05] MEDS ORDERED: OMALIZUMAB SQ ONE (13:00)
[2019-05-05] MEDS ORDERED: FLUT1INH3 INH (13:23)
[2019-05-05 13:35] VITALS: BP 125/63
[2019-06-12] MEDS ORDERED: MECL1TAB31 PO (13:16)
== END 2019-05-05 13:45 | disposition home or self-care (01) ==
LOC: M INFU 12:27
PROVIDERS: ATTEND Internal Medicine Pulmonary Disease
DX: J45.50 Severe persistent asthma, uncomplicated (principal); Z79.899 Other long term (current) drug therapy

== ENCOUNTER 2019-05-19 12:13 | Outpatient (CLI) | payer OTHER ==
[~2019-05-19] VITALS: Ht 160 cm; Wt 98.6 kg
[~2019-05-19 12:13] MED LIST changes: +FLUT1INH3 INH; -OMEP1CAP73 PO; +OMEP20CA4 PO; +OMEP40CA2 PO; -OMEP40CA97 PO
[2019-05-19 12:15] VITALS: BP 133/62
[2019-05-19] MEDS ORDERED: OMALIZUMAB SQ ONE (13:00)
[2019-05-19] MEDS ORDERED: OMALIZUMAB 150MG 1ML SYRINGE (XOLAIR) (J2357 PER 5MG) SQ ONE (13:00)
[2019-05-19 13:10] VITALS: BP 110/60
== END 2019-05-19 13:10 | disposition home or self-care (01) ==
LOC: M INFU 12:13
PROVIDERS: ATTEND Internal Medicine Pulmonary Disease
DX: J45.50 Severe persistent asthma, uncomplicated (principal); Z91.040 Latex allergy status; Z79.899 Other long term (current) drug therapy

== ENCOUNTER 2019-06-02 10:47 | Outpatient (CLI) | payer OTHER ==
[~2019-06-02] VITALS: Ht 160 cm; Wt 98.6 kg
[2019-06-02 10:50] VITALS: BP 127/84
[2019-06-02] MEDS ORDERED: OMALIZUMAB SQ ONE (11:45)
[2019-06-02] MEDS ORDERED: OMALIZUMAB 150MG 1ML SYRINGE (XOLAIR) (J2357 PER 5MG) SQ ONE (11:45)
[2019-06-02] MEDS ORDERED: FLON1SPR NARES (11:47)
[2019-06-02 12:00] VITALS: BP 125/63
== END 2019-06-02 12:00 | disposition home or self-care (01) ==
LOC: M INFU 10:47
PROVIDERS: ATTEND Internal Medicine Pulmonary Disease
DX: J45.50 Severe persistent asthma, uncomplicated (principal); Z91.040 Latex allergy status; Z79.899 Other long term (current) drug therapy

== ENCOUNTER → 2019-06-09 | Outpatient (REF) | payer OTHER ==
[~2019-06-09] MED LIST changes: +ABIL1TAB13 PO; +FLON1SPR NARES; +MECL-68 PO; -OMEP40CA2 PO; +OMEP40CA97 PO; +ZOLO25TA PO
[2019-06-09 14:19] LABS: ALBUMIN 3.9 GM/DL (3.2-5.2); ALT/SGPT 45 U/L (12-78); BLOOD UREA NITROGEN 14 MG/DL (7-18); CARBON DIOXIDE LEVEL 28 MEQ/L (21-32); CHLORIDE LEVEL 104 MEQ/L (98-107); FREE T4 0.86 NG/DL (0.76-1.46); GLOMERULAR FILTRATION RATE > 60.0 (>51); GLUCOSE, FASTING 92 MG/DL (70-100); POTASSIUM SERUM 4.2 MEQ/L (3.5-5.1); SODIUM LEVEL 137 MEQ/L (136-145); TOTAL PROTEIN 7.3 GM/DL (6.4-8.2)
[2019-06-09 14:22] LABS: TOTAL 25(OH) VITAMIN D 31.2 NG/ML (30.0-100.0)
[2019-06-09 14:32] LABS: HEMOGLOBIN A1c 5.8 %
== END ==
LOC: M SFHCPLAZ 11:20
PROVIDERS: ATTEND Nurse Practitioner Family
DX: E11.9 Type 2 diabetes mellitus without complications (principal); F41.1 Generalized anxiety disorder; E55.9 Vitamin D deficiency, unspecified

== ENCOUNTER 2019-06-12 10:37 | Emergency (ER) | payer OTHER ==
[~2019-06-12] VITALS: Ht 162.6 cm; Wt 101.7 kg
[~2019-06-12 10:37] MED LIST changes: -ABIL1TAB13 PO; -MECL-68 PO; -ZOLO25TA PO
[2019-06-12] MEDS ORDERED: MECLIZINE 25 MG TABLET PO ONE (11:00)
[2019-06-12 11:14] LABS: BASO # 0.1 10^3/uL (0.0-0.2); BASO % 0.7 % (0.0-1.0); EOS # 0.5 10^3/uL (0.0-0.5); EOS % 5.3 % (0.0-3.0); HEMATOCRIT 40.6 % (36.0-47.0); HEMOGLOBIN 14.1 g/dl (12.0-15.5); LYMPH # 1.9 10^3/uL (1.5-5.0); LYMPH % 19.7 % (24.0-44.0); MEAN CORPUSCULAR HEMOGLOBIN 31.9 pg (27.0-33.0); MEAN CORPUSCULAR HGB CONC 34.7 g/dl (32.0-36.5); MEAN CORPUSCULAR VOLUME 91.9 fl (80.0-96.0); MONO # 0.5 10^3/uL (0.0-0.8); MONO % 5.4 % (0.0-5.0); NEUTROPHILS # 6.7 10^3/uL (1.5-8.5); NEUTROPHILS % 68.5 % (36.0-66.0); PLATELET COUNT, AUTOMATED 287 10^3/uL (150-450); RED BLOOD COUNT 4.42 10^6/uL (4.00-5.40); WHITE BLOOD COUNT 9.8 10^3/uL (4.0-10.0)
[2019-06-12 11:25] LABS: INR 0.99; PROTHROMBIN TIME 12.8 SECONDS (11.8-14.0)
--- NOTE | 2019-06-12 11:25 | REP ---
CT brain without contrast: History: Unsteady gait. Dizziness. Comparison CT study November 21, 2017. CT findings: Digital preliminary district scout executive radiograph is unremarkable. The maxilla is edentulous. On bone window settings, the bony calvarium is intact. There is mucosal thickening affecting the ethmoid air cells bilaterally. This is unchanged from the comparison study. There is no evidence of intracranial hemorrhage. No mass, extra-axial fluid collection, or midline shift is seen. Barnes white differentiation pattern is normal above and below the tentorium. Impression: Mucosal thickening in the ethmoid sinuses consistent with mild sinusitis. Otherwise negative noncontrast head CT. Electronically Signed by Kristopher Rubio MD 06/12/2019 12:34 P
[2019-06-12 11:26] LABS: PARTIAL THROMBOPLASTIN TIME 27.2 SECONDS (25.0-38.4)
[2019-06-12] MEDS ORDERED: ABIL1TAB13 PO ×2 (11:32→11:33)
[2019-06-12] MEDS ORDERED: ZOLO25TA PO (11:33)
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
[2019-06-12] MEDS ORDERED: NS 500 ML IV ONE (11:45)
[2019-06-12 11:48] LABS: ALBUMIN 3.6 GM/DL (3.2-5.2); ALT/SGPT 47 U/L (12-78); BILIRUBIN,DIRECT 0.2 MG/DL (0.0-0.2); BILIRUBIN,TOTAL 0.8 MG/DL (0.2-1.0); BLOOD UREA NITROGEN 9 MG/DL (7-18); CALCIUM LEVEL 9.7 MG/DL (8.5-10.1); CARBON DIOXIDE LEVEL 24 MEQ/L (21-32); CHLORIDE LEVEL 107 MEQ/L (98-107); CK-MB VALUE MASS 3.4 NG/ML (<3.6); CPK CREATINE PHOSPHOKINASE 262 U/L (26-192); CREATININE FOR GFR 0.65 MG/DL (0.55-1.30); FREE T4 0.84 NG/DL (0.76-1.46); GLOMERULAR FILTRATION RATE > 60.0 (>51); GLUCOSE, FASTING 107 MG/DL (70-100); POTASSIUM SERUM 4.3 MEQ/L (3.5-5.1); SODIUM LEVEL 138 MEQ/L (136-145); TOTAL PROTEIN 7.1 GM/DL (6.4-8.2); TROPONIN I < 0.02 NG/ML (< 0.10)
[2019-06-12] MEDS ORDERED: MECL-68 PO (13:16)
[2019-06-12 13:35] VITALS: BP 139/66
--- NOTE | 2019-06-12 19:07 | ECGEPIP ---
[facility] - ED Test Date: 2019-06-12 Pat Name: KENAN OBRIEN Department: Room: - Gender: Female Sonar Technician: INA : 1965 Requested By: MIHIR Goncalves Order Number: [id number] Reading MD: Casimiro Marie Measurements Intervals [place] Rate: 79 P: 54 PA: 172 QRS: 20 QRSD: 94 T: 31 QT: 372 QTc: 427 Interpretive Statements SINUS RHYTHM SIMILAR TO 02/12/18 Electronically Signed on 06-12-2019 19:07:16 EDT by Casimiro Marie
== END 2019-06-12 13:35 | disposition home or self-care (01) ==
LOC: M ED 10:37
DX: R42 Dizziness and giddiness (principal); E11.9 Type 2 diabetes mellitus without complications; E55.9 Vitamin D deficiency, unspecified; J45.909 Unspecified asthma, uncomplicated; E78.5 Hyperlipidemia, unspecified; E66.9 Obesity, unspecified; M54.9 Dorsalgia, unspecified; K21.9 Gastro-esophageal reflux disease without esophagitis; G47.33 Obstructive sleep apnea (adult) (pediatric); F41.1 Generalized anxiety disorder; F31.9 Bipolar disorder, unspecified; G43.909 Migraine, unspecified, not intractable, without status migrainosus; Z98.84 Bariatric surgery status; L30.9 Dermatitis, unspecified; F17.200 Nicotine dependence, unspecified, uncomplicated; Z79.899 Other long term (current) drug therapy; Z88.6 Allergy status to analgesic agent; Z91.040 Latex allergy status

== ENCOUNTER → 2019-06-23 | Outpatient (CLI) | payer OTHER, MEDICAID ==
[~2019-06-23] MED LIST changes: +ABIL1TAB13 PO; +MECL-68 PO; +ZOLO25TA PO
--- NOTE | 2019-06-23 12:06 | REP ---
Clinical: Bilateral ankle pain. Technique: AP, lateral, bilateral oblique views of the right and left ankle. Findings: Bilateral ankles demonstrate generalized age-related changes. Joint spaces are intact and normal. Incidental small right and moderate left calcaneal heel spurs noted along with very subtle calcification to the bilateral plantar fascia. Impression: Generalized age-related changes. Calcaneal heel spurs. Electronically Signed by Huy Corbett MD 06/23/2019 11:58 A
== END ==
LOC: M RAD 11:26
PROVIDERS: ATTEND Nurse Practitioner Family
DX: M25.571 Pain in right ankle and joints of right foot (principal); M77.31 Calcaneal spur, right foot; M77.32 Calcaneal spur, left foot

== ENCOUNTER 2019-08-08 11:00 | Outpatient (CLI) | payer OTHER ==
[~2019-08-08] VITALS: Ht 160 cm; Wt 98.6 kg
[~2019-08-08 11:00] MED LIST changes: +OMEP-172 PO; -OMEP20CA4 PO
[2019-08-08 15:40] VITALS: BP 125/62
[2019-08-08] MEDS ORDERED: OMALIZUMAB SQ ONE (17:00)
[2019-08-08] MEDS ORDERED: OMALIZUMAB 150MG 1ML SYRINGE (XOLAIR) (J2357 PER 5MG) SQ ONE (17:00)
[2019-08-08 17:10] VITALS: BP 113/71
== END 2019-08-08 17:10 | disposition home or self-care (01) ==
LOC: M INFU 11:00
PROVIDERS: ATTEND Internal Medicine Pulmonary Disease
DX: J45.50 Severe persistent asthma, uncomplicated (principal); Z88.6 Allergy status to analgesic agent; Z91.040 Latex allergy status; Z79.899 Other long term (current) drug therapy

== ENCOUNTER 2019-09-05 12:14 | Outpatient (CLI) | payer OTHER ==
[~2019-09-05] VITALS: Ht 160 cm; Wt 98.6 kg
[~2019-09-05 12:14] MED LIST changes: -MECL-68 PO; +MECL1TAB31 PO; -OMEP-172 PO; +OMEP1CAP73 PO
[2019-09-05 12:20] VITALS: BP 144/67
[2019-09-05 12:50] VITALS: BP 137/65
[2019-09-05] MEDS ORDERED: OMALIZUMAB 150 MG (XOLAIR) VIAL (J2357 PER 5MG) SC ONE (13:00)
[2019-09-05] MEDS ORDERED: OMALIZUMAB SQ ONE (13:00)
[2019-09-05] MEDS ORDERED: OMALIZUMAB 150MG 1ML SYRINGE (XOLAIR) (J2357 PER 5MG) SQ ONE (13:00)
== END 2019-09-05 12:50 | disposition home or self-care (01) ==
LOC: M INFU 12:14
PROVIDERS: ATTEND Internal Medicine Pulmonary Disease
DX: J45.50 Severe persistent asthma, uncomplicated (principal); Z91.040 Latex allergy status

== ENCOUNTER 2019-09-22 12:57 | Outpatient (CLI) | payer OTHER ==
[~2019-09-22] VITALS: Ht 160 cm; Wt 102.1 kg
[~2019-09-22 12:57] MED LIST changes: -ZOLO100T PO
[2019-09-22 13:05] VITALS: BP 127/65
[2019-09-22] MEDS ORDERED: OMALIZUMAB SQ ONE (13:30)
[2019-09-22] MEDS ORDERED: OMALIZUMAB 150MG 1ML SYRINGE (XOLAIR) (J2357 PER 5MG) SQ ONE (13:30)
[2019-09-22 13:35] VITALS: BP 154/73
[2019-09-22] MEDS ORDERED: ZOLO100T PO (13:59)
== END 2019-09-22 13:35 | disposition home or self-care (01) ==
LOC: M INFU 12:57
PROVIDERS: ATTEND Internal Medicine Pulmonary Disease
DX: J45.50 Severe persistent asthma, uncomplicated (principal); Z88.6 Allergy status to analgesic agent; Z91.040 Latex allergy status

== ENCOUNTER → 2019-09-22 | Outpatient (CLI) | payer OTHER ==
[~2019-09-22] MED LIST changes: +ZOLO100T PO
--- NOTE | 2019-09-22 12:56 | REPMRS ---
Patient History The patient states she had a clinical breast exam in 2019. Family history of breast cancer at age 50 or over in paternal aunt. No Hormone Replacement Therapy 3D TOMOSYNTHESIS WAS PERFORMED. The Perlita Elena lifetime risk for breast cancer is 11.9%. Digital Woman Screen Mammo: September 22, 2019 - Exam #: [id number] Bilateral CC and MLO view(s) were taken. Technologist: Chapis Borges, Technologist Prior study comparison: August 03, 2018, bilateral digital woman screen mammo performed at [facility]. May 04, 2017, digital woman screen mammo performed at [facility]. FINDINGS: The breast tissue is heterogeneously dense. This may lower the sensitivity of mammography. There has been no change in the appearance of the mammogram from the prior studies. There is a moderate amount of residual fibroglandular tissue which is fairly symmetric. There is no interval development of dominant mass, areas of architectural distortion, or clustered microcalcification typical of malignancy. Assessment: BI-RADS/ACR category 1 mammogram. Negative Mammogram. Recommendation Routine screening mammogram in 1 year (for women over age 40). This mammogram was interpreted with the aid of an FDA-approved computer-aided dectection system. Electronically Signed By: Sanford Barnes MD 09/22/19 [id number]
== END ==
LOC: M WHC 11:16
PROVIDERS: ATTEND Nurse Practitioner Women's Health
DX: Z12.31 Encounter for screening mammogram for malignant neoplasm of breast (principal); Z80.3 Family history of malignant neoplasm of breast

== ENCOUNTER → 2019-10-04 | Outpatient (CLI) | payer OTHER ==
[~2019-10-04] MED LIST changes: +ZOLO100T PO
--- NOTE | 2019-10-04 10:50 | REP ---
Clinical: Pelvic pain. Technique: Transabdominal pelvic ultrasound. Findings: Bladder is normal and measures 8.9 x 6.4 x 8.4 cm. The patient is status post hysterectomy and no pelvic fluid or adnexal mass lesion is appreciated. The bilateral ovaries are normal in appearance and demonstrate internal flow without evidence for torsion. Right ovary measures 2.5 x 1.4 x 2.0 cm. Left ovary measures 2.4 x 1.3 x 1.9 cm. No pelvic fluid. Impression: Prior hysterectomy. Normal bilateral ovaries. No pelvic fluid or adnexal mass.
== END ==
LOC: M WHC 09:45
PROVIDERS: ATTEND Nurse Practitioner Women's Health
DX: R10.2 Pelvic and perineal pain (principal)

== ENCOUNTER → 2019-10-13 | Outpatient (CLI) | payer OTHER ==
[2019-10-13 10:25] LABS: HEMOGLOBIN A1c 6.2 %
[2019-10-13 10:35] LABS: ALT/SGPT 77 U/L (12-78); BILIRUBIN,TOTAL 0.7 MG/DL (0.2-1.0); BLOOD UREA NITROGEN 11 MG/DL (7-18); CALCIUM LEVEL 9.8 MG/DL (8.5-10.1); CARBON DIOXIDE LEVEL 26 MEQ/L (21-32); CHLORIDE LEVEL 106 MEQ/L (98-107); CREATININE FOR GFR 0.72 MG/DL (0.55-1.30); FREE T4 0.86 NG/DL (0.76-1.46); GLOMERULAR FILTRATION RATE > 60.0 (>51); GLUCOSE, FASTING 110 MG/DL (70-100); POTASSIUM SERUM 4.2 MEQ/L (3.5-5.1); SODIUM LEVEL 137 MEQ/L (136-145); TOTAL 25(OH) VITAMIN D 36.9 NG/ML (30.0-100.0); TOTAL PROTEIN 7.4 GM/DL (6.4-8.2)
== END ==
LOC: M LAB 09:08
PROVIDERS: ATTEND Nurse Practitioner Family
DX: F41.1 Generalized anxiety disorder (principal); E11.9 Type 2 diabetes mellitus without complications

== ENCOUNTER 2019-10-14 12:00 | Outpatient (CLI) | payer OTHER ==
[~2019-10-14] VITALS: Ht 160 cm; Wt 102.3 kg
[2019-10-14 12:05] VITALS: BP 139/81
[2019-10-14] MEDS ORDERED: OMALIZUMAB SQ ONE (12:30)
[2019-10-14] MEDS ORDERED: OMALIZUMAB 150MG 1ML SYRINGE (XOLAIR) (J2357 PER 5MG) SQ ONE (12:30)
== END 2019-10-14 13:10 | disposition home or self-care (01) ==
LOC: M INFU 12:00
PROVIDERS: ATTEND Internal Medicine Pulmonary Disease
DX: J45.50 Severe persistent asthma, uncomplicated (principal); Z79.899 Other long term (current) drug therapy

== ENCOUNTER 2019-10-28 10:44 | Outpatient (CLI) | payer OTHER ==
[~2019-10-28] VITALS: Ht 160 cm; Wt 102.3 kg
[2019-10-28 10:50] VITALS: BP 139/66
[2019-10-28] MEDS ORDERED: OMALIZUMAB SQ ONE (11:00)
[2019-10-28] MEDS ORDERED: OMALIZUMAB 150MG 1ML SYRINGE (XOLAIR) (J2357 PER 5MG) SQ ONE (11:00)
[2019-10-28 11:15] VITALS: BP 134/74
== END 2019-10-28 11:15 | disposition home or self-care (01) ==
LOC: M INFU 10:44
PROVIDERS: ATTEND Internal Medicine Pulmonary Disease
DX: J45.50 Severe persistent asthma, uncomplicated (principal); Z88.6 Allergy status to analgesic agent; Z91.040 Latex allergy status

== ENCOUNTER 2019-11-16 09:17 | Outpatient (CLI) | payer OTHER ==
[~2019-11-16] VITALS: Ht 160 cm; Wt 102.3 kg
[2019-11-16 09:25] VITALS: BP 146/77
[2019-11-16] MEDS ORDERED: OMALIZUMAB 150MG 1ML SYRINGE (XOLAIR) (J2357 PER 5MG) SQ ONE (10:00)
[2019-11-16] MEDS ORDERED: OMALIZUMAB SQ ONE (10:00)
[2019-11-16] MEDS ORDERED: XOLA150S SC (10:18)
[2019-11-16] MEDS ORDERED: XOLA75IN SC (10:18)
[2019-11-16 10:30] VITALS: BP 139/70
== END 2019-11-16 10:30 | disposition home or self-care (01) ==
LOC: M INFU 09:17
PROVIDERS: ATTEND Internal Medicine Pulmonary Disease
DX: J45.50 Severe persistent asthma, uncomplicated (principal); Z88.6 Allergy status to analgesic agent; Z91.040 Latex allergy status

== ENCOUNTER 2019-12-28 12:48 | Outpatient (CLI) | payer OTHER ==
[~2019-12-28] VITALS: Ht 160 cm; Wt 102.3 kg
[2019-12-28 11:50] VITALS: BP 137/76
[~2019-12-28 12:48] MED LIST changes: +XOLA150S SC; +XOLA75IN SC
[2019-12-28 12:50] VITALS: BP 137/76
[2019-12-28] MEDS ORDERED: OMALIZUMAB 150MG 1ML SYRINGE (XOLAIR) (J2357 PER 5MG) SQ ONE (14:00)
[2019-12-28] MEDS ORDERED: OMALIZUMAB SQ ONE (14:00)
[2019-12-28 14:10] VITALS: BP 128/74
== END 2019-12-28 14:10 | disposition home or self-care (01) ==
LOC: M INFU 12:48
PROVIDERS: ATTEND Internal Medicine Pulmonary Disease
DX: J45.50 Severe persistent asthma, uncomplicated (principal); Z79.899 Other long term (current) drug therapy; Z91.040 Latex allergy status

== ENCOUNTER 2020-01-25 10:47 | Outpatient (CLI) | payer MEDICARE, OTHER ==
[~2020-01-25] VITALS: Ht 160 cm; Wt 102.3 kg
[~2020-01-25 10:47] MED LIST changes: +OMALIZUMAB 150MG 1ML SYRINGE (XOLAIR) (J2357 PER 5MG) SQ ONE; +OMALIZUMAB SQ ONE
[2020-01-25 10:54] VITALS: BP 143/82
== END 2020-01-25 11:00 | disposition home or self-care (01) ==
LOC: M INFU 10:47
PROVIDERS: ATTEND Internal Medicine Pulmonary Disease
DX: J45.50 Severe persistent asthma, uncomplicated (principal); Z79.899 Other long term (current) drug therapy

== ENCOUNTER 2020-02-24 08:33 | Outpatient (CLI) | payer OTHER ==
[~2020-02-24] VITALS: Ht 160 cm; Wt 102.3 kg
[~2020-02-24 08:33] MED LIST changes: -OMALIZUMAB 150MG 1ML SYRINGE (XOLAIR) (J2357 PER 5MG) SQ ONE; -OMALIZUMAB SQ ONE
[2020-02-24 08:57] VITALS: BP 144/91
[2020-02-24] MEDS ORDERED: OMALIZUMAB 150MG 1ML SYRINGE (XOLAIR) (J2357 PER 5MG) SQ ONE (09:00)
[2020-02-24] MEDS ORDERED: OMALIZUMAB SQ ONE (09:00)
== END 2020-02-24 09:15 | disposition home or self-care (01) ==
LOC: M INFU 08:33
PROVIDERS: ATTEND Internal Medicine Pulmonary Disease
DX: J45.50 Severe persistent asthma, uncomplicated (principal)

== ENCOUNTER 2020-03-09 11:08 | Outpatient (CLI) | payer MEDICARE, OTHER ==
[~2020-03-09] VITALS: Ht 160 cm; Wt 110.5 kg
[2020-03-09] MEDS ORDERED: OMALIZUMAB 150MG 1ML SYRINGE (XOLAIR) (J2357 PER 5MG) SQ ONE (11:15)
[2020-03-09] MEDS ORDERED: OMALIZUMAB SQ ONE (11:15)
[2020-03-09 11:20] VITALS: BP 138/87
[2020-03-09 11:45] VITALS: BP 178/89
== END 2020-03-09 11:45 | disposition home or self-care (01) ==
LOC: M INFU 11:08
PROVIDERS: ATTEND Internal Medicine Pulmonary Disease
DX: J45.50 Severe persistent asthma, uncomplicated (principal)

== ENCOUNTER → 2020-03-23 | Outpatient (CLI) | payer MEDICARE, OTHER | LOC: M INFU 10:00 | PROVIDERS: ATTEND Internal Medicine Pulmonary Disease | DX: J45.50 Severe persistent asthma, uncomplicated (principal) ==

== ENCOUNTER → 2020-04-16 | Outpatient (CLI) | payer MEDICARE, OTHER, MEDICAID ==
[2020-04-16 13:25] LABS: BASO # 0.1 10^3/uL (0.0-0.2); BASO % 0.8 % (0.0-1.0); EOS # 0.3 10^3/uL (0.0-0.5); EOS % 3.8 % (0.0-3.0); HEMOGLOBIN 14.7 g/dl (12.0-15.5); LYMPH # 1.4 10^3/uL (1.5-5.0); LYMPH % 18.7 % (24.0-44.0); MEAN CORPUSCULAR HEMOGLOBIN 31.1 pg (27.0-33.0); MEAN CORPUSCULAR HGB CONC 33.4 g/dl (32.0-36.5); MEAN CORPUSCULAR VOLUME 93.2 fl (80.0-96.0); MONO # 0.4 10^3/uL (0.0-0.8); MONO % 5.1 % (0.0-5.0); NEUTROPHILS # 5.3 10^3/uL (1.5-8.5); NEUTROPHILS % 71.3 % (36.0-66.0); PLATELET COUNT, AUTOMATED 238 10^3/uL (150-450); RED BLOOD COUNT 4.72 10^6/uL (4.00-5.40); WHITE BLOOD COUNT 7.4 10^3/uL (4.0-10.0)
[2020-04-16 13:27] LABS: ALBUMIN 3.8 GM/DL (3.2-5.2); ALT/SGPT 131 U/L (12-78); BILIRUBIN,DIRECT 0.2 MG/DL (0.0-0.2); BILIRUBIN,TOTAL 0.6 MG/DL (0.2-1.0); BLOOD UREA NITROGEN 7 MG/DL (7-18); CALCIUM LEVEL 9.5 MG/DL (8.5-10.1); CARBON DIOXIDE LEVEL 30 MEQ/L (21-32); CHLORIDE LEVEL 106 MEQ/L (98-107); CHOLESTEROL LEVEL 208 MG/DL (<200); CHOLESTEROL RISK RATIO 4.837 (<5); GLOMERULAR FILTRATION RATE > 60.0 (>51); GLUCOSE, FASTING 127 MG/DL (70-100); HDL CHOLESTEROL 43 MG/DL (>40); LDL CHOLESTEROL 114 MG/DL (<100); NON-HDL-C 165 MG/DL; POTASSIUM SERUM 4.3 MEQ/L (3.5-5.1); SODIUM LEVEL 139 MEQ/L (136-145); TOTAL PROTEIN 7.2 GM/DL (6.4-8.2); TRIGLYCERIDES LEVEL 257 MG/DL (<150)
== END ==
LOC: M PLALAB 08:27
PROVIDERS: ATTEND Psychiatry & Neurology Psychiatry
DX: F41.1 Generalized anxiety disorder (principal); F10.20 Alcohol dependence, uncomplicated; T76.11XA Adult physical abuse, suspected, initial encounter; Z59.6 Low income; F31.81 Bipolar II disorder; F40.00 Agoraphobia, unspecified; F90.2 Attention-deficit hyperactivity disorder, combined type

== ENCOUNTER 2020-04-18 12:16 | Outpatient (CLI) | payer MEDICARE, OTHER ==
[~2020-04-18] VITALS: Ht 160 cm; Wt 110.5 kg
[2020-04-18 12:15] VITALS: BP 143/75
[2020-04-18] MEDS ORDERED: OMALIZUMAB SQ ONE (12:30)
[2020-04-18] MEDS ORDERED: OMALIZUMAB 150MG 1ML SYRINGE (XOLAIR) (J2357 PER 5MG) SQ ONE (12:30)
[2020-04-18 13:00] VITALS: BP 138/72
== END 2020-04-18 13:00 | disposition home or self-care (01) ==
LOC: M INFU 12:16
PROVIDERS: ATTEND Internal Medicine Pulmonary Disease
DX: J45.50 Severe persistent asthma, uncomplicated (principal)

== ENCOUNTER 2020-05-02 10:40 | Outpatient (CLI) | payer MEDICARE, OTHER ==
[~2020-05-02] VITALS: Ht 160 cm; Wt 110.5 kg
[2020-05-02 10:45] VITALS: BP 148/77
[2020-05-02] MEDS ORDERED: OMALIZUMAB 150MG 1ML SYRINGE (XOLAIR) (J2357 PER 5MG) SQ ONE (11:00)
[2020-05-02] MEDS ORDERED: OMALIZUMAB SQ ONE (11:00)
== END 2020-05-02 11:00 | disposition home or self-care (01) ==
LOC: M INFU 10:40
PROVIDERS: ATTEND Internal Medicine Pulmonary Disease
DX: J45.50 Severe persistent asthma, uncomplicated (principal)
CPT/HCPCS: 96372; G0463

== ENCOUNTER 2020-05-16 11:13 | Outpatient (CLI) | payer MEDICARE, OTHER ==
[~2020-05-16] VITALS: Ht 160 cm; Wt 110.2 kg
[~2020-05-16 11:13] MED LIST changes: +OMALIZUMAB 150MG 1ML SYRINGE (XOLAIR) (J2357 PER 5MG) SQ ONE; +OMALIZUMAB SQ ONE
[2020-05-16 11:15] VITALS: BP 140/75
[2020-05-16 11:45] VITALS: BP 150/59
== END 2020-05-16 11:50 | disposition home or self-care (01) ==
LOC: M INFU 11:13
PROVIDERS: ATTEND Internal Medicine Pulmonary Disease
DX: J45.50 Severe persistent asthma, uncomplicated (principal)

== ENCOUNTER 2020-05-30 10:49 | Outpatient (CLI) | payer MEDICARE, OTHER ==
[~2020-05-30] VITALS: Ht 160 cm; Wt 110.5 kg
[~2020-05-30 10:49] MED LIST changes: -OMALIZUMAB 150MG 1ML SYRINGE (XOLAIR) (J2357 PER 5MG) SQ ONE; -OMALIZUMAB SQ ONE
[2020-05-30 10:50] VITALS: BP 144/79
[2020-05-30] MEDS ORDERED: OMALIZUMAB SQ ONE (11:00)
[2020-05-30] MEDS ORDERED: OMALIZUMAB 150MG 1ML SYRINGE (XOLAIR) (J2357 PER 5MG) SQ ONE (11:00)
[2020-05-30 11:20] VITALS: BP 136/76
== END 2020-05-30 11:20 | disposition home or self-care (01) ==
LOC: M INFU 10:49
PROVIDERS: ATTEND Internal Medicine Pulmonary Disease
DX: J45.50 Severe persistent asthma, uncomplicated (principal); Z91.040 Latex allergy status; Z79.899 Other long term (current) drug therapy

== ENCOUNTER → 2020-06-12 | Outpatient (REF) | payer MEDICARE, OTHER ==
[2020-06-12 12:02] LABS: HEMATOCRIT 44.1 % (36.0-47.0); HEMOGLOBIN 14.8 g/dl (12.0-15.5); MEAN CORPUSCULAR HEMOGLOBIN 31.6 pg (27.0-33.0); MEAN CORPUSCULAR HGB CONC 33.6 g/dl (32.0-36.5); PLATELET COUNT, AUTOMATED 251 10^3/uL (150-450); RED BLOOD COUNT 4.69 10^6/uL (4.00-5.40)
[2020-06-12 12:30] LABS: ALBUMIN 3.8 GM/DL (3.2-5.2); ALT/SGPT 96 U/L (12-78); BILIRUBIN,TOTAL 0.7 MG/DL (0.2-1.0); BLOOD UREA NITROGEN 9 MG/DL (7-18); CALCIUM LEVEL 9.5 MG/DL (8.5-10.1); CARBON DIOXIDE LEVEL 25 MEQ/L (21-32); CHLORIDE LEVEL 105 MEQ/L (98-107); CREATININE FOR GFR 0.77 MG/DL (0.55-1.30); GLOMERULAR FILTRATION RATE > 60.0 (>51); GLUCOSE, FASTING 109 MG/DL (70-100); POTASSIUM SERUM 4.1 MEQ/L (3.5-5.1); SODIUM LEVEL 136 MEQ/L (136-145); TOTAL PROTEIN 7.4 GM/DL (6.4-8.2)
[2020-06-12 12:35] LABS: CREATININE, URINE 60.8 MG/DL; MALB URINE SIEMENS 5.2 MG/L; MAU/CREAT RATIO 8.5 MCG/MG (0.0-30.0)
[2020-06-12 12:36] LABS: TOTAL 25(OH) VITAMIN D 43.3 NG/ML (30.0-100.0)
[2020-06-12 13:00] LABS: HEMOGLOBIN A1c 5.9 %
[2020-06-12 13:30] LABS: CHOLESTEROL RISK RATIO 2.75 (<5); FOLATE 7.3 NG/ML
[2020-06-16 17:06] LABS: VITAMIN A, RETINOL LEVEL 57.1 ug/dL (20.1-62.0); VITAMIN B1 LEVEL WHOLE BLOOD 157.8 nmol/L (66.5-200.0)
== END ==
LOC: M PLALAB 08:33
PROVIDERS: ATTEND Nurse Practitioner Family
DX: E11.9 Type 2 diabetes mellitus without complications (principal); E55.9 Vitamin D deficiency, unspecified; Z98.84 Bariatric surgery status

== ENCOUNTER 2020-06-13 11:25 | Outpatient (CLI) | payer MEDICARE, OTHER ==
[~2020-06-13] VITALS: Ht 160 cm; Wt 110.0 kg
[2020-06-13 11:30] VITALS: BP 134/67
[2020-06-13] MEDS ORDERED: OMALIZUMAB SQ ONE (11:30)
[2020-06-13] MEDS ORDERED: OMALIZUMAB 150MG 1ML SYRINGE (XOLAIR) (J2357 PER 5MG) SQ ONE (11:30)
== END 2020-06-13 11:50 | disposition home or self-care (01) ==
LOC: M INFU 11:25
PROVIDERS: ATTEND Internal Medicine Pulmonary Disease
DX: J45.50 Severe persistent asthma, uncomplicated (principal); Z91.040 Latex allergy status; Z79.899 Other long term (current) drug therapy

== ENCOUNTER → 2020-06-22 | Outpatient (CLI) | payer MEDICARE, OTHER | LOC: M LABSMTC 09:39 | PROVIDERS: ATTEND Orthopaedic Surgery | DX: Z01.812 Encounter for preprocedural laboratory examination (principal); Z20.828 Contact with and (suspected) exposure to other viral communicable diseases ==

== ENCOUNTER 2020-07-02 10:50 | Outpatient (CLI) | payer MEDICARE, OTHER ==
[~2020-07-02] VITALS: Ht 157.5 cm; Wt 110.6 kg
[2020-07-02] MEDS ORDERED: OMALIZUMAB 150MG 1ML SYRINGE (XOLAIR) (J2357 PER 5MG) SQ ONE (11:00)
[2020-07-02] MEDS ORDERED: OMALIZUMAB SQ ONE (11:00)
[2020-07-02 11:05] VITALS: BP 134/90
== END 2020-07-02 11:10 | disposition home or self-care (01) ==
LOC: M INFU 10:50
PROVIDERS: ATTEND Internal Medicine Pulmonary Disease
DX: J45.50 Severe persistent asthma, uncomplicated (principal); Z91.040 Latex allergy status

== ENCOUNTER 2020-07-17 13:45 | Outpatient (CLI) | payer MEDICARE, OTHER ==
[~2020-07-17] VITALS: Ht 160 cm; Wt 110.0 kg
[~2020-07-17 13:45] MED LIST changes: +OMALIZUMAB 150MG 1ML SYRINGE (XOLAIR) (J2357 PER 5MG) SQ ONE; +OMALIZUMAB SQ ONE
[2020-07-17 13:55] VITALS: BP 146/75
[2020-07-17] MEDS ORDERED: OMALIZUMAB SQ ONE (14:00)
[2020-07-17] MEDS ORDERED: OMALIZUMAB 150MG 1ML SYRINGE (XOLAIR) (J2357 PER 5MG) SQ ONE (14:00)
== END 2020-07-17 14:00 | disposition home or self-care (01) ==
LOC: M INFU 13:45
PROVIDERS: ATTEND Internal Medicine Pulmonary Disease
DX: J45.50 Severe persistent asthma, uncomplicated (principal); Z91.040 Latex allergy status

== ENCOUNTER → 2020-07-23 | Outpatient (REF) | payer MEDICARE, OTHER ==
[~2020-07-23] MED LIST changes: -OMALIZUMAB 150MG 1ML SYRINGE (XOLAIR) (J2357 PER 5MG) SQ ONE; -OMALIZUMAB SQ ONE
[2020-07-23 14:57] LABS: ALBUMIN 3.8 GM/DL (3.2-5.2); BILIRUBIN,DIRECT 0.2 MG/DL (0.0-0.2); BILIRUBIN,TOTAL 1.1 MG/DL (0.2-1.0); TOTAL PROTEIN 7.3 GM/DL (6.4-8.2)
== END ==
LOC: M PLALAB 08:34
PROVIDERS: ATTEND Nurse Practitioner Family
DX: R79.89 Other specified abnormal findings of blood chemistry (principal); Z79.899 Other long term (current) drug therapy

== ENCOUNTER → 2020-07-30 | Outpatient (CLI) | payer MEDICARE, OTHER ==
--- NOTE | 2020-07-30 10:18 | REP ---
INDICATION: R79.89 ELEVATED LFT's. COMPARISON: 09/17/2006. TECHNIQUE: Real-time sonographic evaluation of right upper quadrant performed. FINDINGS: The gallbladder demonstrates no evidence of intraluminal sludge or calculi, wall thickening or pericholecystic fluid. There is no intrahepatic or extrahepatic biliary dilatation, common bile duct measures 5 mm in maximum diameter. There is diffuse increased echotexture of the liver compatible with diffuse fibrofatty infiltration. Liver is mildly enlarged measuring 20.5 cm in length. Pancreas is not seen due to overlying bowel gas. The right kidney demonstrates no hydronephrosis, with a normal size of 12.0 cm in length. The proximal abdominal aorta is obscured by overlying bowel gas. The mid abdominal aorta is normal in caliber at 1.9 cm in AP dimension as is the distal abdominal aorta measuring 1.5 cm.No free fluid is seen. IMPRESSION: Mild hepatomegaly with diffuse fibrofatty infiltration of the liver. <Electronically signed by Sanford Barnes > 07/30/20 [id number]
== END ==
LOC: M WHC 08:22
PROVIDERS: ATTEND Nurse Practitioner Family
DX: R79.89 Other specified abnormal findings of blood chemistry (principal)

== ENCOUNTER 2020-07-31 11:15 | Outpatient (CLI) | payer MEDICARE, OTHER ==
[~2020-07-31] VITALS: Ht 160 cm; Wt 110.0 kg
[2020-07-31] MEDS ORDERED: OMALIZUMAB 150MG 1ML SYRINGE (XOLAIR) (J2357 PER 5MG) SQ ONE (11:30)
[2020-07-31] MEDS ORDERED: OMALIZUMAB SQ ONE (11:30)
[2020-07-31 11:35] VITALS: BP 147/81
== END 2020-07-31 11:45 | disposition home or self-care (01) ==
LOC: M INFU 11:15
PROVIDERS: ATTEND Internal Medicine Pulmonary Disease
DX: J45.50 Severe persistent asthma, uncomplicated (principal); Z91.040 Latex allergy status; Z88.6 Allergy status to analgesic agent

== ENCOUNTER 2020-08-14 11:08 | Outpatient (CLI) | payer MEDICARE, OTHER ==
[~2020-08-14] VITALS: Ht 160 cm; Wt 110.0 kg
[2020-08-14 11:10] VITALS: BP 147/80
[2020-08-14 11:28] VITALS: BP 147/80
[2020-08-14] MEDS ORDERED: OMALIZUMAB SQ ONE (11:30)
[2020-08-14] MEDS ORDERED: OMALIZUMAB 150MG 1ML SYRINGE (XOLAIR) (J2357 PER 5MG) SQ ONE (11:30)
== END 2020-08-14 11:30 | disposition home or self-care (01) ==
LOC: M INFU 11:08
PROVIDERS: ATTEND Internal Medicine Pulmonary Disease
DX: J45.50 Severe persistent asthma, uncomplicated (principal); Z91.040 Latex allergy status; Z88.6 Allergy status to analgesic agent

== ENCOUNTER 2020-09-03 08:26 | Outpatient (CLI) | payer MEDICARE, OTHER ==
[~2020-09-03] VITALS: Ht 160 cm; Wt 110.5 kg
[~2020-09-03 08:26] MED LIST changes: +OMALIZUMAB 150MG 1ML SYRINGE (XOLAIR) (J2357 PER 5MG) SQ ONE; +OMALIZUMAB SQ ONE
[2020-09-03 08:55] VITALS: BP 134/72
[2020-09-03] MEDS ORDERED: OMALIZUMAB SQ ONE (09:00)
[2020-09-03] MEDS ORDERED: OMALIZUMAB 150MG 1ML SYRINGE (XOLAIR) (J2357 PER 5MG) SQ ONE (09:00)
== END 2020-09-03 08:59 | disposition home or self-care (01) ==
LOC: M INFU 08:26
PROVIDERS: ATTEND Internal Medicine Pulmonary Disease
DX: J45.50 Severe persistent asthma, uncomplicated (principal); Z91.040 Latex allergy status; Z88.6 Allergy status to analgesic agent

== ENCOUNTER → 2020-09-20 | Outpatient (CLI) | payer MEDICARE ==
[~2020-09-20] MED LIST changes: -OMALIZUMAB 150MG 1ML SYRINGE (XOLAIR) (J2357 PER 5MG) SQ ONE; -OMALIZUMAB SQ ONE
== END ==
LOC: M OUTALCOH 09:38
PROVIDERS: ATTEND Psychiatry & Neurology Psychiatry
DX: F10.20 Alcohol dependence, uncomplicated (principal); F12.10 Cannabis abuse, uncomplicated

== ENCOUNTER 2020-09-24 14:42 | Outpatient (CLI) | payer MEDICARE, OTHER ==
[~2020-09-24] VITALS: Ht 160 cm; Wt 103.6 kg
[~2020-09-24 14:42] MED LIST changes: +OMALIZUMAB 150MG 1ML SYRINGE (XOLAIR) (J2357 PER 5MG) SQ ONE; +OMALIZUMAB SQ ONE
[2020-09-24 15:00] VITALS: BP 178/87
[2020-09-24] MEDS ORDERED: OMALIZUMAB 150MG 1ML SYRINGE (XOLAIR) (J2357 PER 5MG) SQ ONE (15:00)
[2020-09-24] MEDS ORDERED: OMALIZUMAB SQ ONE (15:00)
== END 2020-09-24 15:00 | disposition home or self-care (01) ==
LOC: M INFU 14:42
PROVIDERS: ATTEND Internal Medicine Pulmonary Disease
DX: J45.50 Severe persistent asthma, uncomplicated (principal); Z88.6 Allergy status to analgesic agent; Z91.040 Latex allergy status

== ENCOUNTER 2020-10-08 11:08 | Outpatient (CLI) | payer MEDICARE, OTHER ==
[~2020-10-08] VITALS: Ht 160 cm; Wt 103.0 kg
[~2020-10-08 11:08] MED LIST changes: -OMALIZUMAB 150MG 1ML SYRINGE (XOLAIR) (J2357 PER 5MG) SQ ONE; -OMALIZUMAB SQ ONE
[2020-10-08 11:15] VITALS: BP 145/80
[2020-10-08] MEDS ORDERED: OMALIZUMAB 150MG 1ML SYRINGE (XOLAIR) (J2357 PER 5MG) SQ ONE (11:30)
[2020-10-08] MEDS ORDERED: OMALIZUMAB SQ ONE (11:30)
== END 2020-10-08 11:30 | disposition home or self-care (01) ==
LOC: M INFU 11:08
PROVIDERS: ATTEND Internal Medicine Pulmonary Disease
DX: J45.50 Severe persistent asthma, uncomplicated (principal); Z88.6 Allergy status to analgesic agent; Z91.040 Latex allergy status

== ENCOUNTER → 2020-10-17 | Outpatient (REF) | payer MEDICARE, OTHER ==
[2020-10-17 11:27] LABS: ALBUMIN 3.7 GM/DL (3.2-5.2); ALT/SGPT 58 U/L (12-78); BILIRUBIN,TOTAL 0.7 MG/DL (0.2-1.0); BLOOD UREA NITROGEN 7 MG/DL (7-18); CALCIUM LEVEL 9.6 MG/DL (8.5-10.1); CARBON DIOXIDE LEVEL 29 MEQ/L (21-32); CHLORIDE LEVEL 101 MEQ/L (98-107); CREATININE FOR GFR 0.73 MG/DL (0.55-1.30); GLOMERULAR FILTRATION RATE > 60.0 (>51); GLUCOSE, FASTING 138 MG/DL (70-100); SODIUM LEVEL 136 MEQ/L (136-145); TOTAL PROTEIN 7.1 GM/DL (6.4-8.2)
[2020-10-17 11:30] LABS: MALB URINE SIEMENS 9.9 MG/L; MAU/CREAT RATIO 6.8 MCG/MG (0.0-30.0); TOTAL 25(OH) VITAMIN D 35.2 NG/ML (30.0-100.0)
[2020-10-17 11:38] LABS: HEMOGLOBIN A1c 6.4 %
== END ==
LOC: M PLALAB 08:36
PROVIDERS: ATTEND Nurse Practitioner Family
DX: R79.89 Other specified abnormal findings of blood chemistry (principal); E11.9 Type 2 diabetes mellitus without complications; E55.9 Vitamin D deficiency, unspecified

== ENCOUNTER → 2020-10-19 | Outpatient (CLI) | payer MEDICARE, OTHER ==
--- NOTE | 2020-10-19 12:56 | REPMRS ---
Patient History The patient states she has not had a clinical breast exam in over a year. Family history of breast cancer at age 50 or over in paternal aunt. No Hormone Replacement Therapy Digital Woman Screen Mammo: October 19, 2020 - Exam #: [id number] Bilateral CC and MLO view(s) were taken. Technologist: Chapis Borges, Technologist Prior study comparison: September 22, 2019, bilateral digital woman screen mammo performed at [facility]. August 03, 2018, bilateral digital woman screen mammo performed at [facility]. May 04, 2017, digital woman screen mammo performed at [facility]. FINDINGS: There are scattered fibroglandular densities. The Volpara volumetric breast density category is:B. There has been no change in the appearance of the mammogram from the prior studies. There is a mild amount of scattered fibroglandular density which is fairly symmetric. There is no interval development of dominant mass, architectural distortion, or grouped microcalcification suggestive of malignancy. 3-D tomosynthesis shows no additional findings. Assessment: BI-RADS/ACR category 1 mammogram. Negative Mammogram. Recommendation Routine screening mammogram of both breasts in 1 year (for women over age 40). This patient's [facility] Lifetime Breast Cancer Risk is estimated at 11.6 %. This mammogram was interpreted with the aid of an FDA-approved computer-aided dectection system. Electronically Signed By: Kong Rubio MD 10/19/20 [id number]
== END ==
LOC: M WHC 11:22
PROVIDERS: ATTEND Nurse Practitioner Women's Health
DX: Z12.31 Encounter for screening mammogram for malignant neoplasm of breast (principal)

== ENCOUNTER 2020-10-30 13:43 | Outpatient (CLI) | payer MEDICARE, OTHER ==
[~2020-10-30] VITALS: Ht 157.5 cm; Wt 103.4 kg
[~2020-10-30 13:43] MED LIST changes: +OMALIZUMAB 150MG 1ML SYRINGE (XOLAIR) (J2357 PER 5MG) SQ ONE; +OMALIZUMAB SQ ONE
[2020-10-30 13:52] VITALS: BP 141/73
[2020-10-30] MEDS ORDERED: OMALIZUMAB 150MG 1ML SYRINGE (XOLAIR) (J2357 PER 5MG) SQ ONE (14:00)
[2020-10-30] MEDS ORDERED: OMALIZUMAB SQ ONE (14:00)
== END 2020-10-30 14:05 | disposition home or self-care (01) ==
LOC: M INFU 13:43
PROVIDERS: ATTEND Internal Medicine Pulmonary Disease
DX: J45.50 Severe persistent asthma, uncomplicated (principal); Z88.6 Allergy status to analgesic agent; Z91.040 Latex allergy status

== ENCOUNTER 2020-11-13 09:15 | Outpatient (CLI) | payer MEDICARE, OTHER ==
[~2020-11-13] VITALS: Ht 160 cm; Wt 103.4 kg
[~2020-11-13 09:15] MED LIST changes: -OMALIZUMAB 150MG 1ML SYRINGE (XOLAIR) (J2357 PER 5MG) SQ ONE; -OMALIZUMAB SQ ONE
[2020-11-13 09:23] VITALS: BP 164/82
[2020-11-13] MEDS ORDERED: OMALIZUMAB 150MG 1ML SYRINGE (XOLAIR) (J2357 PER 5MG) SQ ONE (09:30)
[2020-11-13] MEDS ORDERED: OMALIZUMAB SQ ONE (09:30)
== END 2020-11-13 09:35 | disposition home or self-care (01) ==
LOC: M INFU 09:15
PROVIDERS: ATTEND Internal Medicine Pulmonary Disease
DX: J45.50 Severe persistent asthma, uncomplicated (principal); Z88.6 Allergy status to analgesic agent; Z91.040 Latex allergy status

== ENCOUNTER 2020-12-06 07:09 | Outpatient (CLI) | payer MEDICARE ==
[~2020-12-06] VITALS: Ht 160 cm; Wt 103.0 kg
[2020-12-06 07:10] VITALS: BP 131/73
[2020-12-06] MEDS ORDERED: OMALIZUMAB 150MG 1ML SYRINGE (XOLAIR) (J2357 PER 5MG) SQ ONE (07:30)
[2020-12-06] MEDS ORDERED: OMALIZUMAB SQ ONE (07:30)
[2020-12-06 07:32] VITALS: BP 131/80
== END 2020-12-06 07:35 | disposition home or self-care (01) ==
LOC: M INFU 07:09
PROVIDERS: ATTEND Internal Medicine Pulmonary Disease
DX: J45.50 Severe persistent asthma, uncomplicated (principal); Z88.6 Allergy status to analgesic agent; Z88.8 Allergy status to other drugs, medicaments and biological substances

== ENCOUNTER 2020-12-20 09:50 | Outpatient (CLI) | payer MEDICARE ==
[~2020-12-20] VITALS: Ht 160 cm; Wt 103.4 kg
[~2020-12-20 09:50] MED LIST changes: +OMALIZUMAB 150MG 1ML SYRINGE (XOLAIR) (J2357 PER 5MG) SQ ONE; +OMALIZUMAB SQ ONE
[2020-12-20 09:58] VITALS: BP 163/84
== END 2020-12-20 10:05 | disposition home or self-care (01) ==
LOC: M INFU 09:50
PROVIDERS: ATTEND Internal Medicine Pulmonary Disease
DX: J45.50 Severe persistent asthma, uncomplicated (principal); Z88.6 Allergy status to analgesic agent; Z91.040 Latex allergy status

== ENCOUNTER 2021-01-15 11:18 | Outpatient (CLI) | payer MEDICARE, OTHER ==
[~2021-01-15] VITALS: Ht 160 cm; Wt 103.6 kg
[~2021-01-15 11:18] MED LIST changes: -OMALIZUMAB 150MG 1ML SYRINGE (XOLAIR) (J2357 PER 5MG) SQ ONE; -OMALIZUMAB SQ ONE
[2021-01-15 11:25] VITALS: BP 134/90
[2021-01-15] MEDS ORDERED: OMALIZUMAB 150MG 1ML SYRINGE (XOLAIR) (J2357 PER 5MG) SQ ONE (11:30)
[2021-01-15] MEDS ORDERED: OMALIZUMAB SQ ONE (11:30)
== END 2021-01-15 11:40 | disposition home or self-care (01) ==
LOC: M INFU 11:18
PROVIDERS: ATTEND Internal Medicine Pulmonary Disease
DX: J45.50 Severe persistent asthma, uncomplicated (principal); Z88.6 Allergy status to analgesic agent; Z91.040 Latex allergy status

== ENCOUNTER 2021-02-11 10:15 | Outpatient (CLI) | payer OTHER ==
[~2021-02-11 10:15] MED LIST changes: +OMEP40CA4 PO; -OMEP40CA97 PO
[2021-02-11 10:25] VITALS: BP 162/88
[2021-02-11] MEDS ORDERED: OMALIZUMAB 150MG 1ML SYRINGE (XOLAIR) (J2357 PER 5MG) SQ ONE (10:30)
[2021-02-11] MEDS ORDERED: OMALIZUMAB SQ ONE (10:30)
== END 2021-02-11 10:35 | disposition home or self-care (01) ==
LOC: M INFU 10:15
PROVIDERS: ATTEND Internal Medicine Pulmonary Disease
DX: J45.50 Severe persistent asthma, uncomplicated (principal); Z88.6 Allergy status to analgesic agent; Z91.040 Latex allergy status

== ENCOUNTER 2021-03-01 13:57 | Outpatient (CLI) | payer OTHER ==
[~2021-03-01] VITALS: Ht 160 cm; Wt 103.4 kg
[2021-03-01 13:50] VITALS: BP 139/86
[~2021-03-01 13:57] MED LIST changes: +OMALIZUMAB 150MG 1ML SYRINGE (XOLAIR) (J2357 PER 5MG) SQ ONE; +OMALIZUMAB SQ ONE
== END 2021-03-01 14:15 ==
LOC: M INFU 13:57
PROVIDERS: ATTEND Internal Medicine Pulmonary Disease
DX: J45.50 Severe persistent asthma, uncomplicated (principal); Z88.6 Allergy status to analgesic agent; Z91.040 Latex allergy status

== ENCOUNTER 2021-03-15 09:45 | Outpatient (CLI) | payer OTHER ==
[~2021-03-15] VITALS: Ht 160 cm; Wt 99.8 kg
[2021-03-15 09:50] VITALS: BP 143/83
== END 2021-03-15 09:50 | disposition home or self-care (01) ==
LOC: M INFU 09:45
PROVIDERS: ATTEND Internal Medicine Pulmonary Disease
DX: J45.50 Severe persistent asthma, uncomplicated (principal); Z88.6 Allergy status to analgesic agent; Z91.040 Latex allergy status

== ENCOUNTER 2021-03-29 08:48 | Outpatient (CLI) | payer MEDICARE, OTHER ==
[~2021-03-29] VITALS: Ht 160 cm; Wt 99.7 kg
[~2021-03-29 08:48] MED LIST changes: -OMALIZUMAB 150MG 1ML SYRINGE (XOLAIR) (J2357 PER 5MG) SQ ONE; -OMALIZUMAB SQ ONE
[2021-03-29 08:58] VITALS: BP 142/89
[2021-03-29] MEDS ORDERED: OMALIZUMAB 150MG 1ML SYRINGE (XOLAIR) SQ ONE (09:00)
[2021-03-29] MEDS ORDERED: OMALIZUMAB 75 MG SQ ONE (09:00)
== END 2021-03-29 09:05 | disposition home or self-care (01) ==
LOC: M INFU 08:48
PROVIDERS: ATTEND Internal Medicine Pulmonary Disease
DX: J45.50 Severe persistent asthma, uncomplicated (principal); Z88.6 Allergy status to analgesic agent; Z91.040 Latex allergy status

== ENCOUNTER 2021-04-12 09:01 | Outpatient (CLI) | payer OTHER ==
[~2021-04-12] VITALS: Ht 160 cm; Wt 99.7 kg
[~2021-04-12 09:01] MED LIST changes: +OMALIZUMAB 150MG 1ML SYRINGE (XOLAIR) (J2357 PER 5MG) SQ ONE; +OMALIZUMAB SQ ONE
[2021-04-12 09:23] VITALS: BP 134/88
== END 2021-04-12 09:20 | disposition home or self-care (01) ==
LOC: M INFU 09:01
PROVIDERS: ATTEND Physician Assistant
DX: J45.50 Severe persistent asthma, uncomplicated (principal); Z88.6 Allergy status to analgesic agent; Z91.040 Latex allergy status

== ENCOUNTER 2021-04-26 09:13 | Outpatient (CLI) | payer OTHER ==
[~2021-04-26] VITALS: Ht 160 cm; Wt 99.8 kg
[2021-04-26 09:25] VITALS: BP 142/76
== END 2021-04-26 09:25 | disposition home or self-care (01) ==
LOC: M INFU 09:13
PROVIDERS: ATTEND Internal Medicine Pulmonary Disease
DX: J45.50 Severe persistent asthma, uncomplicated (principal); Z88.6 Allergy status to analgesic agent; Z91.040 Latex allergy status

== ENCOUNTER 2021-05-16 09:52 | Outpatient (CLI) | payer MEDICARE, OTHER ==
[~2021-05-16] VITALS: Ht 160 cm; Wt 99.8 kg
[2021-05-16 10:06] VITALS: BP 139/82
== END 2021-05-16 10:30 | disposition home or self-care (01) ==
LOC: M INFU 09:52
PROVIDERS: ATTEND Internal Medicine Pulmonary Disease
DX: J45.50 Severe persistent asthma, uncomplicated (principal); Z88.6 Allergy status to analgesic agent; Z91.040 Latex allergy status

== ENCOUNTER → 2021-05-20 | Outpatient (REF) | payer MEDICARE, MEDICAID ==
[~2021-05-20] MED LIST changes: -OMALIZUMAB 150MG 1ML SYRINGE (XOLAIR) (J2357 PER 5MG) SQ ONE; -OMALIZUMAB SQ ONE
== END ==
LOC: M LAB REF 11:38
PROVIDERS: ATTEND Internal Medicine
DX: E83.52 Hypercalcemia (principal)

== ENCOUNTER 2021-05-30 10:03 | Outpatient (CLI) | payer MEDICARE, OTHER ==
[~2021-05-30] VITALS: Ht 160 cm; Wt 100.0 kg
[~2021-05-30 10:03] MED LIST changes: +OMALIZUMAB 150MG 1ML SYRINGE (XOLAIR) (J2357 PER 5MG) SQ ONE; +OMALIZUMAB SQ ONE
[2021-05-30 10:05] VITALS: BP 136/85
[2021-05-30 10:30] VITALS: BP 126/84
== END 2021-05-30 10:30 | disposition home or self-care (01) ==
LOC: M INFU 10:03
PROVIDERS: ATTEND Internal Medicine Pulmonary Disease
DX: J45.50 Severe persistent asthma, uncomplicated (principal); Z88.6 Allergy status to analgesic agent; Z91.040 Latex allergy status

== ENCOUNTER 2021-06-14 09:38 | Outpatient (CLI) | payer MEDICAID, MEDICARE, OTHER ==
[~2021-06-14] VITALS: Ht 160 cm; Wt 100.0 kg
[~2021-06-14 09:38] MED LIST changes: -OMALIZUMAB 150MG 1ML SYRINGE (XOLAIR) (J2357 PER 5MG) SQ ONE; +OMALIZUMAB 150MG 1ML SYRINGE (XOLAIR) SQ ONE; +OMALIZUMAB 75 MG SQ ONE; -OMALIZUMAB SQ ONE
[2021-06-14 09:45] VITALS: BP 174/81
[2021-06-14] MEDS ORDERED: OMALIZUMAB 150MG 1ML SYRINGE (XOLAIR) SQ ONE (10:00)
[2021-06-14] MEDS ORDERED: OMALIZUMAB 75 MG SQ ONE (10:00)
== END 2021-06-14 09:55 | disposition home or self-care (01) ==
LOC: M INFU 09:38
PROVIDERS: ATTEND Internal Medicine Pulmonary Disease
DX: J45.50 Severe persistent asthma, uncomplicated (principal); Z88.6 Allergy status to analgesic agent; Z91.040 Latex allergy status

== ENCOUNTER 2021-06-27 10:31 | Outpatient (CLI) | payer MEDICAID, MEDICARE, OTHER ==
[~2021-06-27] VITALS: Ht 160 cm; Wt 100.0 kg
[~2021-06-27 10:31] MED LIST changes: +OMALIZUMAB 150MG 1ML SYRINGE (XOLAIR) SC ONE; -OMALIZUMAB 150MG 1ML SYRINGE (XOLAIR) SQ ONE; +OMALIZUMAB 75 MG SC ONE; -OMALIZUMAB 75 MG SQ ONE
[2021-06-27 10:43] VITALS: BP 141/100
== END 2021-06-27 10:50 | disposition home or self-care (01) ==
LOC: M INFU 10:31
PROVIDERS: ATTEND Internal Medicine Pulmonary Disease
DX: J45.50 Severe persistent asthma, uncomplicated (principal); Z91.040 Latex allergy status

== ENCOUNTER 2021-07-25 10:23 | Outpatient (CLI) | payer MEDICARE, OTHER ==
[~2021-07-25] VITALS: Ht 160 cm; Wt 100.0 kg
[~2021-07-25 10:23] MED LIST changes: -OMALIZUMAB 150MG 1ML SYRINGE (XOLAIR) SC ONE; -OMALIZUMAB 75 MG SC ONE
[2021-07-25 10:32] VITALS: BP 146/80
[2021-07-25] MEDS ORDERED: OMALIZUMAB 75 MG SQ ONE (12:30)
[2021-07-25] MEDS ORDERED: OMALIZUMAB 150MG 1ML SYRINGE (XOLAIR) SQ ONE (12:30)
== END 2021-07-25 10:45 | disposition home or self-care (01) ==
LOC: M INFU 10:23
PROVIDERS: ATTEND Internal Medicine Pulmonary Disease
DX: J45.50 Severe persistent asthma, uncomplicated (principal); Z88.6 Allergy status to analgesic agent; Z91.040 Latex allergy status

== ENCOUNTER → 2021-08-01 | Outpatient (CLI) | payer MEDICARE, OTHER ==
--- NOTE | 2021-08-02 07:20 | REP ---
INDICATION: SMOKER COMPARISON: 10/20/2017 TECHNIQUE: Axial noncontrast images from the thoracic inlet to the upper abdomen using low-dose lung screening technique (LDCT). FINDINGS: Bilateral lung crandall are well aerated, symmetric and relatively clear. No acute consolidation, suspicious nodule or mass. No effusion. No pneumothorax. Tracheobronchial tree is patent. IMPRESSION: Lung-RADS category 1. Management recommendations include annual low-dose CT surveillance. <Electronically signed by Huy Corbett > 08/02/21 [id number]
== END ==
LOC: M RAD 09:21
DX: Z12.2 Encounter for screening for malignant neoplasm of respiratory organs (principal); F17.210 Nicotine dependence, cigarettes, uncomplicated

== ENCOUNTER 2021-08-08 10:14 | Outpatient (CLI) | payer MEDICARE, OTHER ==
[~2021-08-08] VITALS: Ht 160 cm; Wt 100.0 kg
[2021-08-08 10:21] VITALS: BP 151/85
[2021-08-08] MEDS ORDERED: OMALIZUMAB 75 MG SQ ONE (10:30)
[2021-08-08] MEDS ORDERED: OMALIZUMAB 150MG 1ML SYRINGE (XOLAIR) SQ ONE (10:30)
== END 2021-08-08 10:30 | disposition home or self-care (01) ==
LOC: M INFU 10:14
PROVIDERS: ATTEND Internal Medicine Pulmonary Disease
DX: J45.50 Severe persistent asthma, uncomplicated (principal); Z88.6 Allergy status to analgesic agent; Z91.040 Latex allergy status

== ENCOUNTER 2021-08-22 10:15 | Outpatient (CLI) | payer MEDICARE, OTHER ==
[~2021-08-22] VITALS: Ht 160 cm; Wt 99.7 kg
[2021-08-22 10:15] VITALS: BP 132/82
[2021-08-22] MEDS ORDERED: OMALIZUMAB 150MG 1ML SYRINGE (XOLAIR) SQ ONE (10:30)
[2021-08-22] MEDS ORDERED: OMALIZUMAB 75 MG SQ ONE (10:30)
== END 2021-08-22 11:05 | disposition home or self-care (01) ==
LOC: M INFU 10:15
PROVIDERS: ATTEND Internal Medicine Pulmonary Disease
DX: J45.50 Severe persistent asthma, uncomplicated (principal); Z88.6 Allergy status to analgesic agent; Z91.040 Latex allergy status

== ENCOUNTER 2021-09-19 10:08 | Outpatient (CLI) | payer MEDICARE, MEDICAID ==
[~2021-09-19] VITALS: Ht 160 cm; Wt 98.6 kg
[2021-09-19 10:10] VITALS: BP 138/84
[2021-09-19] MEDS ORDERED: OMALIZUMAB 75 MG SQ ONE (10:30)
[2021-09-19] MEDS ORDERED: OMALIZUMAB 150MG 1ML SYRINGE (XOLAIR) SQ ONE (10:30)
== END 2021-09-19 10:35 | disposition home or self-care (01) ==
LOC: M INFU 10:08
PROVIDERS: ATTEND Internal Medicine Pulmonary Disease
DX: J45.50 Severe persistent asthma, uncomplicated (principal); Z88.6 Allergy status to analgesic agent; Z91.040 Latex allergy status

== ENCOUNTER 2021-10-03 11:30 | Outpatient (CLI) | payer MEDICARE ==
[~2021-10-03] VITALS: Ht 160 cm; Wt 63.0 kg
[~2021-10-03 11:30] MED LIST changes: +OMALIZUMAB 150MG 1ML SYRINGE (XOLAIR) SQ ONE; +OMALIZUMAB 75 MG SQ ONE
[2021-10-03 11:48] VITALS: BP 155/76
== END 2021-10-03 11:45 | disposition home or self-care (01) ==
LOC: M INFU 11:30
PROVIDERS: ATTEND Internal Medicine Pulmonary Disease
DX: J45.50 Severe persistent asthma, uncomplicated (principal); Z88.6 Allergy status to analgesic agent; Z91.040 Latex allergy status

== ENCOUNTER 2021-10-22 10:44 | Emergency (ER) | payer MEDICARE ==
[~2021-10-22] VITALS: Ht 162.6 cm; Wt 100.5 kg
[~2021-10-22 10:44] MED LIST changes: -OMALIZUMAB 150MG 1ML SYRINGE (XOLAIR) SQ ONE; -OMALIZUMAB 75 MG SQ ONE
[2021-10-22 10:45] VITALS: BP 148/75
== END 2021-10-22 10:59 | disposition left against medical advice (07) ==
LOC: M ED 10:44
DX: Z53.21 Procedure and treatment not carried out due to patient leaving prior to being seen by health care provider (principal)

== ENCOUNTER → 2021-10-23 | Outpatient (CLI) | payer MEDICARE, OTHER | LOC: M WHC 10:00 | PROVIDERS: ATTEND Internal Medicine | DX: Z12.31 Encounter for screening mammogram for malignant neoplasm of breast (principal); R92.8 Other abnormal and inconclusive findings on diagnostic imaging of breast ==

== ENCOUNTER 2021-10-24 11:10 | Outpatient (CLI) | payer MEDICARE ==
[~2021-10-24] VITALS: Ht 160 cm; Wt 98.6 kg
[~2021-10-24 11:10] MED LIST changes: +OMALIZUMAB 150MG 1ML SYRINGE (XOLAIR) SQ ONE; +OMALIZUMAB 75 MG SQ ONE
[2021-10-24] MEDS ORDERED: OMALIZUMAB 75 MG SQ ONE (11:30)
[2021-10-24] MEDS ORDERED: OMALIZUMAB 150MG 1ML SYRINGE (XOLAIR) SQ ONE (11:30)
== END 2021-10-24 11:30 | disposition home or self-care (01) ==
LOC: M INFU 11:10
PROVIDERS: ATTEND Internal Medicine Pulmonary Disease
DX: J45.50 Severe persistent asthma, uncomplicated (principal); Z88.6 Allergy status to analgesic agent; Z91.040 Latex allergy status

== ENCOUNTER 2021-11-05 10:10 | Outpatient (CLI) | payer MEDICARE ==
[~2021-11-05] VITALS: Ht 160 cm; Wt 98.0 kg
[~2021-11-05 10:10] MED LIST changes: -OMALIZUMAB 150MG 1ML SYRINGE (XOLAIR) SQ ONE; -OMALIZUMAB 75 MG SQ ONE
[2021-11-05 10:19] VITALS: BP 167/89
[2021-11-05] MEDS ORDERED: OMALIZUMAB 150MG 1ML SYRINGE (XOLAIR) SQ ONE (10:30)
[2021-11-05] MEDS ORDERED: OMALIZUMAB 75 MG SQ ONE (10:30)
== END 2021-11-05 10:30 | disposition home or self-care (01) ==
LOC: M INFU 10:10
PROVIDERS: ATTEND Internal Medicine Pulmonary Disease
DX: J45.50 Severe persistent asthma, uncomplicated (principal); Z88.6 Allergy status to analgesic agent; Z91.040 Latex allergy status

== ENCOUNTER → 2021-11-07 | Outpatient (CLI) | payer MEDICARE | LOC: M WHC 10:49 | PROVIDERS: ATTEND Internal Medicine | DX: R92.2 Inconclusive mammogram (principal); R92.8 Other abnormal and inconclusive findings on diagnostic imaging of breast | CPT/HCPCS: 77065; G0279 ==

== ENCOUNTER 2021-11-19 09:25 | Outpatient (CLI) | payer MEDICARE ==
[~2021-11-19] VITALS: Ht 160 cm; Wt 98.4 kg
[2021-11-19 09:45] VITALS: BP 141/83
[2021-11-19] MEDS ORDERED: OMALIZUMAB 75 MG SQ ONE (10:30)
[2021-11-19] MEDS ORDERED: OMALIZUMAB 150MG 1ML SYRINGE (XOLAIR) SQ ONE (10:30)
== END 2021-11-19 09:45 | disposition home or self-care (01) ==
LOC: M INFU 09:25
PROVIDERS: ATTEND Internal Medicine Pulmonary Disease
DX: J45.50 Severe persistent asthma, uncomplicated (principal); Z88.6 Allergy status to analgesic agent; Z91.040 Latex allergy status

== ENCOUNTER 2021-12-19 08:13 | Outpatient (CLI) | payer MEDICARE, OTHER ==
[~2021-12-19] VITALS: Ht 160 cm; Wt 98.4 kg
[~2021-12-19 08:13] MED LIST changes: +OMALIZUMAB 150MG 1ML SYRINGE (XOLAIR) SQ ONE; +OMALIZUMAB 75 MG SQ ONE
== END 2021-12-19 08:45 | disposition home or self-care (01) ==
LOC: M INFU 08:13
PROVIDERS: ATTEND Internal Medicine Pulmonary Disease
DX: J45.50 Severe persistent asthma, uncomplicated (principal); Z88.6 Allergy status to analgesic agent; Z91.040 Latex allergy status

== ENCOUNTER 2021-12-31 10:19 | Outpatient (CLI) | payer MEDICARE, MEDICAID ==
[~2021-12-31] VITALS: Ht 160 cm; Wt 98.0 kg
[~2021-12-31 10:19] MED LIST changes: -OMALIZUMAB 150MG 1ML SYRINGE (XOLAIR) SQ ONE; -OMALIZUMAB 75 MG SQ ONE
[2021-12-31] MEDS ORDERED: OMALIZUMAB 75 MG SQ ONE (10:30)
[2021-12-31] MEDS ORDERED: OMALIZUMAB 150MG 1ML SYRINGE (XOLAIR) SQ ONE (10:30)
[2021-12-31 10:41] VITALS: BP 152/85
== END 2021-12-31 10:30 | disposition home or self-care (01) ==
LOC: M INFU 10:19
PROVIDERS: ATTEND Internal Medicine Pulmonary Disease
DX: J45.50 Severe persistent asthma, uncomplicated (principal); Z88.6 Allergy status to analgesic agent; Z91.040 Latex allergy status

== ENCOUNTER 2022-01-14 10:51 | Outpatient (CLI) | payer MEDICARE, OTHER ==
[~2022-01-14] VITALS: Ht 160 cm; Wt 98.4 kg
[~2022-01-14 10:51] MED LIST changes: +OMALIZUMAB 150MG 1ML SYRINGE (XOLAIR) SQ ONE; +OMALIZUMAB 75 MG SQ ONE
[2022-01-14 11:05] VITALS: BP 180/88
== END 2022-01-14 11:25 | disposition home or self-care (01) ==
LOC: M INFU 10:51
PROVIDERS: ATTEND Internal Medicine Pulmonary Disease
DX: J45.50 Severe persistent asthma, uncomplicated (principal); Z88.6 Allergy status to analgesic agent; Z91.040 Latex allergy status

== ENCOUNTER → 2022-01-22 | Outpatient (REF) | payer MEDICARE, OTHER ==
[~2022-01-22] MED LIST changes: +ALBU2.5V10 INH; -ALBU83IN INH; -OMALIZUMAB 150MG 1ML SYRINGE (XOLAIR) SQ ONE; -OMALIZUMAB 75 MG SQ ONE
== END ==
LOC: M LAB REF 12:18
PROVIDERS: ATTEND Internal Medicine
DX: Z13.89 Encounter for screening for other disorder (principal)

== ENCOUNTER 2022-01-30 08:59 | Outpatient (CLI) | payer MEDICARE, MEDICAID ==
[~2022-01-30] VITALS: Ht 162.6 cm; Wt 100.0 kg
[2022-01-30 09:00] VITALS: BP 143/76
[2022-01-30] MEDS ORDERED: OMALIZUMAB 75 MG SQ ONE (09:30)
[2022-01-30] MEDS ORDERED: OMALIZUMAB 150MG 1ML SYRINGE (XOLAIR) SQ ONE (09:30)
== END 2022-01-30 09:15 | disposition home or self-care (01) ==
LOC: M INFU 08:59
PROVIDERS: ATTEND Internal Medicine Pulmonary Disease
DX: J45.50 Severe persistent asthma, uncomplicated (principal); Z91.040 Latex allergy status; Z88.6 Allergy status to analgesic agent; F41.1 Generalized anxiety disorder; F10.20 Alcohol dependence, uncomplicated; F12.20 Cannabis dependence, uncomplicated; Z59.6 Low income; T76.11XA Adult physical abuse, suspected, initial encounter; F31.81 Bipolar II disorder; F40.00 Agoraphobia, unspecified; Z62.810 Personal history of physical and sexual abuse in childhood; Z62.812 Personal history of neglect in childhood; Z79.899 Other long term (current) drug therapy

== ENCOUNTER 2022-02-13 10:30 | Outpatient (CLI) | payer MEDICARE, OTHER ==
[~2022-02-13] VITALS: Ht 162.6 cm; Wt 100.0 kg
[~2022-02-13 10:30] MED LIST changes: +OMALIZUMAB 150MG 1ML SYRINGE (XOLAIR) SQ ONE; +OMALIZUMAB 75 MG SQ ONE
[2022-02-13 10:57] VITALS: BP 132/72
== END 2022-02-13 10:45 | disposition home or self-care (01) ==
LOC: M INFU 10:30
PROVIDERS: ATTEND Internal Medicine Pulmonary Disease
DX: J45.50 Severe persistent asthma, uncomplicated (principal); Z91.040 Latex allergy status; Z88.6 Allergy status to analgesic agent

== ENCOUNTER 2022-03-03 11:45 | Outpatient (CLI) | payer MEDICARE, MEDICAID ==
[~2022-03-03] VITALS: Ht 160 cm; Wt 100.0 kg
[2022-03-03 11:48] VITALS: BP 135/83
[2022-03-03] MEDS ORDERED: OMALIZUMAB 75 MG SQ ONE (12:00)
[2022-03-03] MEDS ORDERED: OMALIZUMAB 150MG 1ML SYRINGE (XOLAIR) SQ ONE (12:00)
[2022-03-03 12:30] VITALS: BP 135/79
== END 2022-03-03 12:30 | disposition home or self-care (01) ==
LOC: M INFU 11:45
PROVIDERS: ATTEND Internal Medicine Pulmonary Disease
DX: J45.50 Severe persistent asthma, uncomplicated (principal); Z91.040 Latex allergy status; Z88.6 Allergy status to analgesic agent

== ENCOUNTER 2022-04-08 13:30 | Outpatient (CLI) | payer MEDICARE, OTHER ==
[~2022-04-08] VITALS: Ht 160 cm; Wt 100.0 kg
[2022-04-08 13:38] VITALS: BP 147/77
== END 2022-04-08 13:35 | disposition home or self-care (01) ==
LOC: M INFU 13:30
PROVIDERS: ATTEND Internal Medicine Pulmonary Disease
DX: J45.50 Severe persistent asthma, uncomplicated (principal); Z88.6 Allergy status to analgesic agent; Z91.040 Latex allergy status

== ENCOUNTER 2022-04-22 10:10 | Outpatient (CLI) | payer MEDICARE, OTHER ==
[~2022-04-22] VITALS: Ht 160 cm; Wt 99.0 kg
[2022-04-22 10:10] VITALS: BP 138/86
[~2022-04-22 10:10] MED LIST changes: -OMALIZUMAB 150MG 1ML SYRINGE (XOLAIR) SQ ONE; -OMALIZUMAB 75 MG SQ ONE
[2022-04-22] MEDS ORDERED: OMALIZUMAB 75 MG SQ ONE (10:30)
[2022-04-22] MEDS ORDERED: OMALIZUMAB 150MG 1ML SYRINGE (XOLAIR) SQ ONE (10:30)
== END 2022-04-22 10:20 | disposition home or self-care (01) ==
LOC: M INFU 10:10
PROVIDERS: ATTEND Internal Medicine Pulmonary Disease
DX: J45.50 Severe persistent asthma, uncomplicated (principal); Z88.6 Allergy status to analgesic agent; Z91.040 Latex allergy status

== ENCOUNTER → 2022-04-25 | Outpatient (REF) | payer MEDICARE, OTHER, MEDICAID ==
[~2022-04-25] MED LIST changes: -DULE200A IN; -DULE200A INH; +MOME13HF7 IN; +MOME13HF7 INH
== END ==
LOC: M LAB REF 11:23
PROVIDERS: ATTEND Internal Medicine
DX: R19.7 Diarrhea, unspecified (principal)

== ENCOUNTER 2022-05-08 10:37 | Outpatient (CLI) | payer MEDICAID, MEDICARE ==
[~2022-05-08] VITALS: Ht 160 cm; Wt 99.0 kg
[~2022-05-08 10:37] MED LIST changes: +OMALIZUMAB 150MG 1ML SYRINGE (XOLAIR) SQ ONE; +OMALIZUMAB 75 MG SQ ONE
[2022-05-08] MEDS ORDERED: CREO24CA PO (10:48)
[2022-05-08 10:49] VITALS: BP 138/84
== END 2022-05-08 10:50 | disposition home or self-care (01) ==
LOC: M INFU 10:37
PROVIDERS: ATTEND Internal Medicine Pulmonary Disease
DX: J45.50 Severe persistent asthma, uncomplicated (principal); Z88.6 Allergy status to analgesic agent; Z91.040 Latex allergy status

== ENCOUNTER 2022-05-20 10:10 | Outpatient (CLI) | payer MEDICAID, MEDICARE ==
[~2022-05-20] VITALS: Ht 160 cm; Wt 100.0 kg
[~2022-05-20 10:10] MED LIST changes: +CREO24CA PO; -OMALIZUMAB 150MG 1ML SYRINGE (XOLAIR) SQ ONE; -OMALIZUMAB 75 MG SQ ONE
[2022-05-20 10:21] VITALS: BP 135/90
[2022-05-20] MEDS ORDERED: OMALIZUMAB 150MG 1ML SYRINGE (XOLAIR) SQ ONE (10:30)
[2022-05-20] MEDS ORDERED: OMALIZUMAB 75 MG SQ ONE (10:30)
== END 2022-05-20 10:20 | disposition home or self-care (01) ==
LOC: M INFU 10:10
PROVIDERS: ATTEND Internal Medicine Pulmonary Disease
DX: J45.50 Severe persistent asthma, uncomplicated (principal); Z91.040 Latex allergy status; Z88.6 Allergy status to analgesic agent

== ENCOUNTER 2022-06-06 11:15 | Outpatient (CLI) | payer MEDICARE, MEDICAID ==
[~2022-06-06] VITALS: Ht 160 cm; Wt 100.0 kg
[2022-06-06 11:15] VITALS: BP 138/62
[~2022-06-06 11:15] MED LIST changes: +OMALIZUMAB 150MG 1ML SYRINGE (XOLAIR) SQ ONE; +OMALIZUMAB 75 MG SQ ONE
[2022-06-06] MEDS ORDERED: OMALIZUMAB 75 MG SQ ONE (11:30)
[2022-06-06] MEDS ORDERED: OMALIZUMAB 150MG 1ML SYRINGE (XOLAIR) SQ ONE (11:30)
== END 2022-06-06 11:30 ==
LOC: M INFU 11:15
PROVIDERS: ATTEND Internal Medicine Pulmonary Disease
DX: J45.50 Severe persistent asthma, uncomplicated (principal); Z88.6 Allergy status to analgesic agent; Z91.040 Latex allergy status

== ENCOUNTER 2022-06-20 11:15 | Outpatient (CLI) | payer MEDICARE, MEDICAID ==
[~2022-06-20] VITALS: Ht 160 cm; Wt 100.0 kg
[2022-06-20 11:15] VITALS: BP 142/83
[2022-06-20 11:40] VITALS: BP 138/76
== END 2022-06-20 11:40 | disposition home or self-care (01) ==
LOC: M INFU 11:15
PROVIDERS: ATTEND Internal Medicine Pulmonary Disease
DX: J45.50 Severe persistent asthma, uncomplicated (principal); Z88.5 Allergy status to narcotic agent; Z91.040 Latex allergy status

== ENCOUNTER 2022-07-24 11:50 | Outpatient (CLI) | payer MEDICARE, OTHER ==
[~2022-07-24] VITALS: Ht 160 cm; Wt 99.7 kg
[~2022-07-24 11:50] MED LIST changes: +OMALIZUMAB 150MG 1ML SYRINGE (XOLAIR) SC ONE; -OMALIZUMAB 150MG 1ML SYRINGE (XOLAIR) SQ ONE; +OMALIZUMAB 75 MG SC ONE; -OMALIZUMAB 75 MG SQ ONE
[2022-07-24 11:51] VITALS: BP 150/82
== END 2022-07-24 12:10 | disposition home or self-care (01) ==
LOC: M INFU 11:50
PROVIDERS: ATTEND Internal Medicine Pulmonary Disease
DX: J45.50 Severe persistent asthma, uncomplicated (principal); Z88.6 Allergy status to analgesic agent; Z91.040 Latex allergy status

== ENCOUNTER 2022-08-05 11:30 | Outpatient (CLI) | payer MEDICAID, MEDICARE ==
[~2022-08-05] VITALS: Ht 160 cm; Wt 99.7 kg
[~2022-08-05 11:30] MED LIST changes: -OMALIZUMAB 150MG 1ML SYRINGE (XOLAIR) SC ONE; +OMALIZUMAB 150MG 1ML SYRINGE (XOLAIR) SQ ONE; -OMALIZUMAB 75 MG SC ONE; +OMALIZUMAB 75 MG SQ ONE
[2022-08-05 11:45] VITALS: BP 159/77
== END 2022-08-05 11:45 | disposition home or self-care (01) ==
LOC: M INFU 11:30
PROVIDERS: ATTEND Internal Medicine Pulmonary Disease
DX: J45.50 Severe persistent asthma, uncomplicated (principal); G47.33 Obstructive sleep apnea (adult) (pediatric); Z87.891 Personal history of nicotine dependence; Z91.040 Latex allergy status; Z88.6 Allergy status to analgesic agent

== ENCOUNTER → 2022-08-12 | Outpatient (CLI) | payer MEDICARE ==
[~2022-08-12] MED LIST changes: -OMALIZUMAB 150MG 1ML SYRINGE (XOLAIR) SQ ONE; -OMALIZUMAB 75 MG SQ ONE
== END ==
LOC: M RAD 08:44
PROVIDERS: ATTEND Physician Assistant
DX: Z12.2 Encounter for screening for malignant neoplasm of respiratory organs (principal); Z87.891 Personal history of nicotine dependence

== ENCOUNTER 2022-08-22 12:00 | Outpatient (CLI) | payer MEDICAID, MEDICARE ==
[2022-08-22 12:00] VITALS: BP 167/74
[~2022-08-22 12:00] MED LIST changes: +OMALIZUMAB 150MG 1ML SYRINGE (XOLAIR) SQ ONE; +OMALIZUMAB 75 MG SQ ONE
[2022-08-22] MEDS ORDERED: OMALIZUMAB 150MG 1ML SYRINGE (XOLAIR) SQ ONE (12:30)
[2022-08-22] MEDS ORDERED: OMALIZUMAB 75 MG SQ ONE (12:30)
== END 2022-08-22 12:25 | disposition home or self-care (01) ==
LOC: M INFU 12:00
PROVIDERS: ATTEND Physician Assistant
DX: J45.50 Severe persistent asthma, uncomplicated (principal); G47.33 Obstructive sleep apnea (adult) (pediatric); Z23 Encounter for immunization; Z87.891 Personal history of nicotine dependence; Z88.6 Allergy status to analgesic agent

== ENCOUNTER → 2022-08-29 | Outpatient (CLI) | payer MEDICARE ==
[~2022-08-29] MED LIST changes: +ISOVUE-370 76% 100ML VIAL As Ordered ONE; -OMALIZUMAB 150MG 1ML SYRINGE (XOLAIR) SQ ONE; -OMALIZUMAB 75 MG SQ ONE; +PROP10TA56 PO
== END ==
LOC: M RAD 15:08
PROVIDERS: ATTEND Internal Medicine
DX: R10.13 Epigastric pain (principal); K86.81 Exocrine pancreatic insufficiency; Z98.84 Bariatric surgery status; K57.30 Diverticulosis of large intestine without perforation or abscess without bleeding
CPT/HCPCS: 74177; Q9967

== ENCOUNTER 2022-09-02 10:10 | Outpatient (CLI) | payer MEDICARE, OTHER ==
[~2022-09-02 10:10] MED LIST changes: -ISOVUE-370 76% 100ML VIAL As Ordered ONE; -PROP10TA56 PO
[2022-09-02 10:22] VITALS: BP 147/81
[2022-09-02] MEDS ORDERED: OMALIZUMAB 150MG 1ML SYRINGE (XOLAIR) SQ ONE (10:30)
[2022-09-02] MEDS ORDERED: OMALIZUMAB 75 MG SQ ONE (10:30)
[2022-09-03] MEDS ORDERED: PROP10TA56 PO (13:09)
== END 2022-09-02 10:20 | disposition home or self-care (01) ==
LOC: M INFU 10:10
PROVIDERS: ATTEND Internal Medicine Pulmonary Disease
DX: J45.50 Severe persistent asthma, uncomplicated (principal); Z91.040 Latex allergy status; Z88.6 Allergy status to analgesic agent

== ENCOUNTER 2022-09-29 11:10 | Outpatient (CLI) | payer MEDICARE, OTHER ==
[~2022-09-29] VITALS: Ht 160 cm; Wt 99.5 kg
[2022-09-29 11:10] VITALS: BP 134/78
[~2022-09-29 11:10] MED LIST changes: +OMALIZUMAB 150MG 1ML SYRINGE (XOLAIR) SQ ONE; +OMALIZUMAB 75 MG SQ ONE; +PROP10TA56 PO
[2022-09-29] MEDS ORDERED: OMALIZUMAB 75 MG SQ ONE (11:30)
[2022-09-29] MEDS ORDERED: OMALIZUMAB 150MG 1ML SYRINGE (XOLAIR) SQ ONE (11:30)
== END 2022-09-29 11:35 | disposition home or self-care (01) ==
LOC: M INFU 11:10
PROVIDERS: ATTEND Internal Medicine Pulmonary Disease
DX: J45.50 Severe persistent asthma, uncomplicated (principal); Z88.6 Allergy status to analgesic agent; Z91.040 Latex allergy status

== ENCOUNTER 2022-10-13 10:10 | Outpatient (CLI) | payer MEDICAID, MEDICARE ==
[~2022-10-13] VITALS: Ht 160 cm; Wt 99.2 kg
[~2022-10-13 10:10] MED LIST changes: -OMALIZUMAB 150MG 1ML SYRINGE (XOLAIR) SQ ONE; -OMALIZUMAB 75 MG SQ ONE
[2022-10-13 10:25] VITALS: BP 173/81
[2022-10-13] MEDS ORDERED: OMALIZUMAB 150MG 1ML SYRINGE (XOLAIR) SQ ONE (10:30)
[2022-10-13] MEDS ORDERED: OMALIZUMAB 75 MG SQ ONE (10:30)
== END 2022-10-13 10:25 | disposition home or self-care (01) ==
LOC: M INFU 10:10
PROVIDERS: ATTEND Internal Medicine Pulmonary Disease
DX: J45.50 Severe persistent asthma, uncomplicated (principal); Z88.6 Allergy status to analgesic agent; Z91.040 Latex allergy status

== ENCOUNTER 2022-10-27 09:45 | Outpatient (CLI) | payer MEDICARE, OTHER ==
[~2022-10-27 09:45] MED LIST changes: -DULE100A; +MOME13HF8; +MONT-5 PO; -SING10TA32 PO
[2022-10-27] MEDS ORDERED: OMALIZUMAB 75 MG SQ ONE (10:00)
[2022-10-27] MEDS ORDERED: OMALIZUMAB 150MG 1ML SYRINGE (XOLAIR) SQ ONE (10:00)
== END 2022-10-27 10:10 | disposition home or self-care (01) ==
LOC: M INFU 09:45
PROVIDERS: ATTEND Internal Medicine Pulmonary Disease
DX: J45.50 Severe persistent asthma, uncomplicated (principal); Z88.6 Allergy status to analgesic agent; Z91.040 Latex allergy status

== ENCOUNTER 2022-11-10 09:55 | Outpatient (CLI) | payer MEDICARE, MEDICAID ==
[~2022-11-10] VITALS: Ht 165.1 cm; Wt 100.0 kg
[2022-11-10 09:55] VITALS: BP 141/75
[2022-11-10] MEDS ORDERED: OMALIZUMAB 150MG 1ML SYRINGE (XOLAIR) SQ ONE (10:30)
[2022-11-10] MEDS ORDERED: OMALIZUMAB 75 MG SQ ONE (10:30)
== END 2022-11-10 10:20 | disposition home or self-care (01) ==
LOC: M INFU 09:55
PROVIDERS: ATTEND Internal Medicine Pulmonary Disease
DX: J45.50 Severe persistent asthma, uncomplicated (principal); G47.33 Obstructive sleep apnea (adult) (pediatric); Z87.891 Personal history of nicotine dependence

== ENCOUNTER → 2022-11-11 | Outpatient (CLI) | payer MEDICAID, MEDICARE | LOC: M WHC 10:02 | PROVIDERS: ATTEND Internal Medicine | DX: Z12.31 Encounter for screening mammogram for malignant neoplasm of breast (principal) ==

== ENCOUNTER 2022-11-24 09:49 | Outpatient (CLI) | payer MEDICAID, MEDICARE ==
[~2022-11-24] VITALS: Ht 165.1 cm; Wt 101.4 kg
[2022-11-24] MEDS ORDERED: OMALIZUMAB 150MG 1ML SYRINGE (XOLAIR) SQ ONE (10:00)
[2022-11-24] MEDS ORDERED: OMALIZUMAB 75 MG SQ ONE (10:00)
[2022-11-24 10:13] VITALS: BP 137/86
== END 2022-11-24 10:15 | disposition home or self-care (01) ==
LOC: M INFU 09:49
PROVIDERS: ATTEND Internal Medicine Pulmonary Disease
DX: J45.50 Severe persistent asthma, uncomplicated (principal); Z88.6 Allergy status to analgesic agent; Z91.040 Latex allergy status

== ENCOUNTER → 2022-11-27 | Outpatient (CLI) | payer MEDICARE | LOC: M WHC 11:02 | PROVIDERS: ATTEND Internal Medicine | DX: R92.8 Other abnormal and inconclusive findings on diagnostic imaging of breast (principal); N63.10 Unspecified lump in the right breast, unspecified quadrant | CPT/HCPCS: 76642; 77065; G0279 ==

== ENCOUNTER 2022-12-08 10:05 | Outpatient (CLI) | payer MEDICARE, MEDICAID ==
[~2022-12-08] VITALS: Ht 160 cm; Wt 110.0 kg
[~2022-12-08 10:05] MED LIST changes: +OMALIZUMAB 150MG 1ML SYRINGE (XOLAIR) SQ ONE; +OMALIZUMAB 75 MG SQ ONE
[2022-12-08 10:10] VITALS: BP 148/67
== END 2022-12-08 10:30 | disposition home or self-care (01) ==
LOC: M INFU 10:05
PROVIDERS: ATTEND Internal Medicine Pulmonary Disease
DX: J45.50 Severe persistent asthma, uncomplicated (principal); Z88.6 Allergy status to analgesic agent; Z91.040 Latex allergy status

== ENCOUNTER 2022-12-22 10:30 | Outpatient (CLI) | payer MEDICARE, OTHER ==
[~2022-12-22] VITALS: Ht 162.6 cm; Wt 100.0 kg
[2022-12-22 10:31] VITALS: BP 163/93
[2022-12-24] MEDS ORDERED: XOLA150I (07:36)
[2022-12-24] MEDS ORDERED: GABA-282 PO (07:36)
[2022-12-24] MEDS ORDERED: ZOLO25TA PO (07:36)
[2022-12-24] MEDS ORDERED: OXCA600T8 PO (07:36)
[2022-12-24] MEDS ORDERED: ALBU8.5H (07:36)
[2022-12-24] MEDS ORDERED: LOSA50TA28 PO (07:36)
[2022-12-24] MEDS ORDERED: OXCA300T14 PO (08:58)
== END 2022-12-22 10:50 | disposition home or self-care (01) ==
LOC: M INFU 10:30
PROVIDERS: ATTEND Internal Medicine Pulmonary Disease
DX: J45.50 Severe persistent asthma, uncomplicated (principal); Z88.6 Allergy status to analgesic agent; Z91.040 Latex allergy status

== ENCOUNTER → 2023-01-05 | Outpatient (CLI) | payer MEDICARE, OTHER ==
[~2023-01-05] VITALS: Ht 160 cm; Wt 110.0 kg
[~2023-01-05] MED LIST changes: +ALBU8.5H; +GABA-282 PO; +LOSA50TA28 PO; +OXCA300T14 PO; +OXCA600T8 PO; +XOLA150I
[2023-01-05 09:50] VITALS: BP 176/88
== END ==
LOC: M INFU 09:45
PROVIDERS: ATTEND Internal Medicine Pulmonary Disease
DX: J45.50 Severe persistent asthma, uncomplicated (principal); Z88.6 Allergy status to analgesic agent; Z91.040 Latex allergy status

== ENCOUNTER 2023-01-07 06:31 | Day surgery (SDC) | payer MEDICARE, OTHER ==
[~2023-01-07] VITALS: Ht 162.6 cm; Wt 98.4 kg
[~2023-01-07 06:31] MED LIST changes: +NS 1,000 ML IV ONE; -OMALIZUMAB 150MG 1ML SYRINGE (XOLAIR) SQ ONE; -OMALIZUMAB 75 MG SQ ONE
[2023-01-07] MEDS ORDERED: LIDOCAINE 2% 100MG/5ML SDV (FOR ANES.) As Ordered ONE (07:41)
[2023-01-07] MEDS ORDERED: propofoL 500 MG/50 ML VIAL As Ordered ONE ×3 (07:41→08:41)
[2023-01-07] MEDS ORDERED: fentaNYL 100 MCG/2 ML INJECTION As Ordered ONE (07:41)
[2023-01-07 08:50] VITALS: BP 128/70
== END 2023-01-07 08:52 | disposition home or self-care (01) ==
LOC: M OPP 06:31
PROVIDERS: ATTEND Internal Medicine Gastroenterology
DX: D12.6 Benign neoplasm of colon, unspecified (principal); K64.0 First degree hemorrhoids; K57.30 Diverticulosis of large intestine without perforation or abscess without bleeding; K62.5 Hemorrhage of anus and rectum; K31.7 Polyp of stomach and duodenum; K22.89 Other specified disease of esophagus; K44.9 Diaphragmatic hernia without obstruction or gangrene; K31.89 Other diseases of stomach and duodenum; Z79.02 Long term (current) use of antithrombotics/antiplatelets; Z79.51 Long term (current) use of inhaled steroids; Z79.899 Other long term (current) drug therapy; Z88.5 Allergy status to narcotic agent; Z88.6 Allergy status to analgesic agent; Z91.040 Latex allergy status
CPT/HCPCS: 43239; 45385; 88305; J3010

== ENCOUNTER 2023-01-20 09:50 | Outpatient (CLI) | payer MEDICAID, MEDICARE ==
[~2023-01-20] VITALS: Ht 160 cm; Wt 101.6 kg
[2023-01-20 09:50] VITALS: BP 160/91
[~2023-01-20 09:50] MED LIST changes: -NS 1,000 ML IV ONE
[2023-01-20 10:15] VITALS: BP 138/66
[2023-01-20] MEDS ORDERED: OMALIZUMAB 75 MG SQ ONE (10:30)
[2023-01-20] MEDS ORDERED: OMALIZUMAB 150MG 1ML SYRINGE (XOLAIR) SQ ONE (10:30)
== END 2023-01-20 10:15 | disposition home or self-care (01) ==
LOC: M INFU 09:50
PROVIDERS: ATTEND Internal Medicine Pulmonary Disease
DX: J45.50 Severe persistent asthma, uncomplicated (principal); Z88.6 Allergy status to analgesic agent; Z91.040 Latex allergy status

== ENCOUNTER → 2023-02-03 | Outpatient (CLI) | payer MEDICARE, OTHER ==
[~2023-02-03] VITALS: Ht 160 cm; Wt 101.6 kg
[~2023-02-03] MED LIST changes: +OMALIZUMAB 150MG 1ML SYRINGE (XOLAIR) SQ ONE; +OMALIZUMAB 75 MG SQ ONE
[2023-02-03 09:50] VITALS: BP 142/80; O2SAT 95
== END ==
LOC: M INFU 09:42
PROVIDERS: ATTEND Internal Medicine Pulmonary Disease
DX: J45.50 Severe persistent asthma, uncomplicated (principal); Z88.6 Allergy status to analgesic agent; Z91.040 Latex allergy status

== ENCOUNTER → 2023-02-27 | Outpatient (CLI) | payer MEDICARE, OTHER ==
[~2023-02-27] VITALS: Ht 160 cm; Wt 101.6 kg
[2023-02-27 12:15] VITALS: BP 135/80; O2SAT 95
[2023-02-27 12:26] VITALS: BP 136/76; O2SAT 95
== END ==
LOC: M INFU 12:03
PROVIDERS: ATTEND Internal Medicine Pulmonary Disease
DX: J45.50 Severe persistent asthma, uncomplicated (principal); Z88.6 Allergy status to analgesic agent; Z91.040 Latex allergy status

== ENCOUNTER 2023-03-31 08:30 | Outpatient (CLI) | payer MEDICARE, OTHER ==
[2023-03-31 08:30] VITALS: BP 139/64; O2SAT 97
[~2023-03-31 08:30] MED LIST changes: -OMALIZUMAB 150MG 1ML SYRINGE (XOLAIR) SQ ONE; -OMALIZUMAB 75 MG SQ ONE
[2023-03-31] MEDS: OMALIZUMAB 150MG 1ML SYRINGE (XOLAIR) SC ONE (09:02)
[2023-03-31] MEDS: OMALIZUMAB 75 MG SC ONE (09:03)
== END 2023-03-31 09:05 | disposition home or self-care (01) ==
LOC: M INFU 08:30
PROVIDERS: ATTEND Internal Medicine Pulmonary Disease
DX: J45.50 Severe persistent asthma, uncomplicated (principal); Z88.6 Allergy status to analgesic agent; Z91.040 Latex allergy status

== ENCOUNTER 2023-04-14 10:10 | Outpatient (CLI) | payer MEDICARE, OTHER ==
[~2023-04-14] VITALS: Ht 165.1 cm; Wt 103.9 kg
[2023-04-14 10:21] VITALS: BP 130/87; O2SAT 97
[2023-04-14] MEDS ORDERED: OMALIZUMAB 150MG 1ML SYRINGE (XOLAIR) SC ONE (10:30)
[2023-04-14] MEDS ORDERED: OMALIZUMAB 75 MG SC ONE (10:30)
== END 2023-04-14 10:35 ==
LOC: M INFU 10:10
PROVIDERS: ATTEND Internal Medicine Pulmonary Disease
DX: J45.50 Severe persistent asthma, uncomplicated (principal); Z88.6 Allergy status to analgesic agent; Z91.040 Latex allergy status

== ENCOUNTER 2023-04-28 10:00 | Outpatient (CLI) | payer MEDICARE, OTHER ==
[~2023-04-28] VITALS: Ht 160 cm; Wt 104.0 kg
[2023-04-28 10:00] VITALS: BP 141/85; O2SAT 97
[~2023-04-28 10:00] MED LIST changes: +MECL-209 PO; -MECL1TAB31 PO
[2023-04-28] MEDS ORDERED: OMALIZUMAB 75 MG SQ ONE (10:30)
[2023-04-28] MEDS ORDERED: OMALIZUMAB 150MG 1ML SYRINGE (XOLAIR) SQ ONE (10:30)
== END 2023-04-28 10:25 | disposition home or self-care (01) ==
LOC: M INFU 10:00
PROVIDERS: ATTEND Internal Medicine Pulmonary Disease
DX: J45.50 Severe persistent asthma, uncomplicated (principal); Z88.6 Allergy status to analgesic agent; Z91.040 Latex allergy status

== ENCOUNTER 2023-05-12 10:40 | Outpatient (CLI) | payer MEDICARE, OTHER ==
[~2023-05-12] VITALS: Ht 160 cm; Wt 104.0 kg
[2023-05-12 10:40] VITALS: BP 164/75; O2SAT 97
[~2023-05-12 10:40] MED LIST changes: +OMALIZUMAB 150MG 1ML SYRINGE (XOLAIR) SQ ONE; +OMALIZUMAB 75 MG SQ ONE
== END 2023-05-12 10:55 ==
LOC: M INFU 10:40
PROVIDERS: ATTEND Internal Medicine Pulmonary Disease
DX: J45.50 Severe persistent asthma, uncomplicated (principal); Z88.6 Allergy status to analgesic agent; Z91.040 Latex allergy status

== ENCOUNTER 2023-05-27 10:02 | Outpatient (CLI) | payer MEDICARE, OTHER ==
[~2023-05-27] VITALS: Ht 162.6 cm; Wt 103.3 kg
[~2023-05-27 10:02] MED LIST changes: -OMALIZUMAB 150MG 1ML SYRINGE (XOLAIR) SQ ONE; -OMALIZUMAB 75 MG SQ ONE
[2023-05-27 10:10] VITALS: BP 134/64; O2SAT 95
[2023-05-27] MEDS ORDERED: OMALIZUMAB 150MG 1ML SYRINGE (XOLAIR) SQ ONE (10:30)
[2023-05-27] MEDS ORDERED: OMALIZUMAB 75 MG SQ ONE (10:30)
[2023-05-27 10:45] VITALS: BP 126/68; O2SAT 96
== END 2023-05-27 10:45 ==
LOC: M INFU 10:02
PROVIDERS: ATTEND Internal Medicine Pulmonary Disease
DX: J45.50 Severe persistent asthma, uncomplicated (principal); Z88.8 Allergy status to other drugs, medicaments and biological substances

== ENCOUNTER 2023-06-09 10:15 | Outpatient (CLI) | payer MEDICARE, OTHER ==
[~2023-06-09] VITALS: Ht 160 cm; Wt 102.3 kg
[2023-06-09 10:18] VITALS: BP 137/63; O2SAT 98
[2023-06-09] MEDS ORDERED: OMALIZUMAB 150MG 1ML SYRINGE (XOLAIR) SQ ONE (10:20)
[2023-06-09] MEDS ORDERED: OMALIZUMAB 75 MG SQ ONE (10:20)
== END 2023-06-09 10:37 | disposition home or self-care (01) ==
LOC: M INFU 10:15
PROVIDERS: ATTEND Internal Medicine Pulmonary Disease
DX: J45.50 Severe persistent asthma, uncomplicated (principal); Z88.6 Allergy status to analgesic agent; Z91.040 Latex allergy status

== ENCOUNTER 2023-06-23 10:07 | Outpatient (CLI) | payer MEDICARE, OTHER ==
[~2023-06-23] VITALS: Ht 162.6 cm; Wt 101.8 kg
[2023-06-23 10:15] VITALS: BP 140/76; O2SAT 96
[2023-06-23] MEDS ORDERED: OMALIZUMAB 75 MG SQ ONE (10:30)
[2023-06-23] MEDS ORDERED: OMALIZUMAB 150MG 1ML SYRINGE (XOLAIR) SQ ONE (10:30)
== END 2023-06-23 10:35 ==
LOC: M INFU 10:07
PROVIDERS: ATTEND Internal Medicine Pulmonary Disease
DX: J45.50 Severe persistent asthma, uncomplicated (principal); Z88.6 Allergy status to analgesic agent; Z91.040 Latex allergy status

== ENCOUNTER → 2023-06-23 | Outpatient (CLI) | payer MEDICARE, OTHER | LOC: M WHC 08:13 | PROVIDERS: ATTEND Internal Medicine | DX: R92.8 Other abnormal and inconclusive findings on diagnostic imaging of breast (principal); N63.11 Unspecified lump in the right breast, upper outer quadrant | CPT/HCPCS: 76642; 77065; 96372; G0279 ==

== ENCOUNTER 2023-07-07 10:20 | Outpatient (CLI) | payer MEDICARE, OTHER ==
[~2023-07-07] VITALS: Ht 162.6 cm; Wt 101.8 kg
[2023-07-07 10:25] VITALS: BP 153/81; O2SAT 98
[2023-07-07] MEDS ORDERED: OMALIZUMAB 150MG 1ML SYRINGE (XOLAIR) SQ ONE (10:30)
[2023-07-07] MEDS ORDERED: OMALIZUMAB 75 MG SQ ONE (10:30)
== END 2023-07-07 10:45 ==
LOC: M INFU 10:20
PROVIDERS: ATTEND Internal Medicine Pulmonary Disease
DX: J45.50 Severe persistent asthma, uncomplicated (principal); Z88.6 Allergy status to analgesic agent; Z91.040 Latex allergy status

== ENCOUNTER 2023-07-21 10:30 | Outpatient (CLI) | payer MEDICARE, OTHER ==
[~2023-07-21] VITALS: Ht 162.6 cm; Wt 102.9 kg
[2023-07-21 10:30] VITALS: BP 138/75; O2SAT 95
[~2023-07-21 10:30] MED LIST changes: +OMALIZUMAB 150MG 1ML SYRINGE (XOLAIR) SQ ONE; +OMALIZUMAB 75 MG SQ ONE
== END 2023-07-21 10:42 ==
LOC: M INFU 10:30
PROVIDERS: ATTEND Internal Medicine Pulmonary Disease
DX: J45.50 Severe persistent asthma, uncomplicated (principal); Z88.6 Allergy status to analgesic agent; Z91.040 Latex allergy status

== ENCOUNTER 2023-08-04 10:40 | Outpatient (CLI) | payer MEDICARE, OTHER ==
[~2023-08-04] VITALS: Ht 162.6 cm; Wt 101.8 kg
[2023-08-04 10:55] VITALS: BP 129/81; O2SAT 96
== END 2023-08-04 10:58 | disposition home or self-care (01) ==
LOC: M INFU 10:40
PROVIDERS: ATTEND Internal Medicine Pulmonary Disease
DX: J45.50 Severe persistent asthma, uncomplicated (principal); Z88.6 Allergy status to analgesic agent; Z91.040 Latex allergy status

== ENCOUNTER 2023-08-20 10:00 | Outpatient (CLI) | payer MEDICARE, OTHER ==
[~2023-08-20 10:00] MED LIST changes: -OMALIZUMAB 150MG 1ML SYRINGE (XOLAIR) SQ ONE; -OMALIZUMAB 75 MG SQ ONE
[2023-08-20 10:12] VITALS: BP 139/64; O2SAT 96
[2023-08-20] MEDS: OMALIZUMAB 150MG 1ML SYRINGE (XOLAIR) SQ ONE (10:31)
[2023-08-20] MEDS: OMALIZUMAB 75 MG SQ ONE (10:31)
== END 2023-08-20 10:34 | disposition home or self-care (01) ==
LOC: M INFU 10:00
PROVIDERS: ATTEND Internal Medicine Pulmonary Disease
DX: J45.50 Severe persistent asthma, uncomplicated (principal); Z88.6 Allergy status to analgesic agent; Z91.040 Latex allergy status

== ENCOUNTER → 2023-08-21 | Outpatient (CLI) | payer MEDICARE, OTHER | LOC: M RAD 09:22 | PROVIDERS: ATTEND Physician Assistant | DX: Z12.2 Encounter for screening for malignant neoplasm of respiratory organs (principal); Z87.891 Personal history of nicotine dependence ==

== ENCOUNTER 2023-09-01 09:49 | Outpatient (CLI) | payer MEDICARE, OTHER ==
[2023-09-01 09:59] VITALS: BP 147/63; O2SAT 100
[2023-09-01] MEDS ORDERED: OMALIZUMAB 75 MG SQ ONE (10:30)
[2023-09-01] MEDS ORDERED: OMALIZUMAB 150MG 1ML SYRINGE (XOLAIR) SQ ONE (10:30)
== END 2023-09-01 10:00 | disposition home or self-care (01) ==
LOC: M INFU 09:49
PROVIDERS: ATTEND Internal Medicine Pulmonary Disease
DX: J45.50 Severe persistent asthma, uncomplicated (principal); Z88.6 Allergy status to analgesic agent; Z91.040 Latex allergy status

== ENCOUNTER 2023-09-21 10:50 | Outpatient (CLI) | payer MEDICARE, OTHER ==
[2023-09-21 10:58] VITALS: BP 133/65; O2SAT 95
[2023-09-21] MEDS ORDERED: OMALIZUMAB 75 MG SQ ONE (11:00)
[2023-09-21] MEDS ORDERED: OMALIZUMAB 150MG 1ML SYRINGE (XOLAIR) SQ ONE (11:00)
== END 2023-09-21 11:00 | disposition home or self-care (01) ==
LOC: M INFU 10:50
PROVIDERS: ATTEND Physician Assistant
DX: J45.50 Severe persistent asthma, uncomplicated (principal); Z91.040 Latex allergy status; Z88.6 Allergy status to analgesic agent

== ENCOUNTER → 2023-10-05 | Outpatient (CLI) | payer MEDICARE, OTHER ==
[~2023-10-05] VITALS: Ht 162.6 cm; Wt 102.7 kg
[2023-10-05 08:57] VITALS: BP 151/75; O2SAT 97
[2023-10-05] MEDS: OMALIZUMAB 150MG 1ML SYRINGE (XOLAIR) SQ ONE (09:19)
[2023-10-05] MEDS: OMALIZUMAB 75 MG SQ ONE (09:19)
== END ==
LOC: M INFU 08:45
PROVIDERS: ATTEND Physician Assistant
DX: J45.50 Severe persistent asthma, uncomplicated (principal); Z88.6 Allergy status to analgesic agent; Z91.040 Latex allergy status

== ENCOUNTER → 2023-10-22 | Outpatient (CLI) | payer MEDICARE, OTHER ==
[~2023-10-22] VITALS: Ht 162.6 cm; Wt 102.7 kg
[2023-10-22 15:01] VITALS: BP 123/67; O2SAT 96
[2023-10-22] MEDS: OMALIZUMAB 75 MG SQ ONE (15:01)
[2023-10-22] MEDS: OMALIZUMAB 150MG 1ML SYRINGE (XOLAIR) SQ ONE (15:01)
== END ==
LOC: M INFU 14:43
PROVIDERS: ATTEND Physician Assistant
DX: J45.50 Severe persistent asthma, uncomplicated (principal); Z88.6 Allergy status to analgesic agent; Z91.040 Latex allergy status

== ENCOUNTER → 2023-10-30 | Outpatient (REF) | payer MEDICARE, OTHER ==
[2023-10-30 13:04] LABS: FERRITIN 21.6 NG/ML (7.3-270.7); IRON (FE) 73 UG/DL (50-170); PERCENT SATURATION 20.1 % (13.2-45.0); TOTAL IRON BINDING CAPACITY 364 UG/DL (250-425)
[2023-10-30 13:07] LABS: FOLATE 10.8 NG/ML (>5.4)
[2023-10-30 13:12] LABS: VITAMIN B12 LEVEL > 2000 PG/ML (211-911)
== END ==
LOC: M LAB REF 11:53
PROVIDERS: ATTEND Internal Medicine
DX: R53.83 Other fatigue (principal); Z98.84 Bariatric surgery status; Z86.39 Personal history of other endocrine, nutritional and metabolic disease

== ENCOUNTER 2023-11-05 09:00 | Outpatient (CLI) | payer MEDICARE, OTHER ==
[~2023-11-05] VITALS: Ht 162.6 cm; Wt 100.9 kg
[2023-11-05 09:00] VITALS: BP 143/74; O2SAT 95
[2023-11-05] MEDS: OMALIZUMAB 75 MG SQ ONE (09:08)
[2023-11-05] MEDS: OMALIZUMAB 150MG 1ML SYRINGE (XOLAIR) SQ ONE (09:09)
== END 2023-11-05 09:15 ==
LOC: M INFU 09:00
PROVIDERS: ATTEND Physician Assistant
DX: J45.909 Unspecified asthma, uncomplicated (principal); Z88.6 Allergy status to analgesic agent; Z91.040 Latex allergy status

== ENCOUNTER 2023-11-20 09:30 | Outpatient (CLI) | payer MEDICARE, OTHER ==
[~2023-11-20] VITALS: Ht 162.6 cm; Wt 102.7 kg
[2023-11-20 09:30] VITALS: BP 156/82; O2SAT 96
[2023-11-20] MEDS: OMALIZUMAB 75 MG SQ ONE (09:34)
[2023-11-20] MEDS: OMALIZUMAB 150MG 1ML SYRINGE (XOLAIR) SQ ONE (09:34)
== END 2023-11-20 09:45 | disposition home or self-care (01) ==
LOC: M INFU 09:30
PROVIDERS: ATTEND Physician Assistant
DX: J45.50 Severe persistent asthma, uncomplicated (principal); Z91.040 Latex allergy status; Z88.6 Allergy status to analgesic agent

== ENCOUNTER 2023-12-07 13:20 | Outpatient (CLI) | payer MEDICARE, OTHER ==
[2023-12-07] MEDS: OMALIZUMAB 75 MG SQ ONE (13:34)
[2023-12-07] MEDS: OMALIZUMAB 150MG 1ML SYRINGE (XOLAIR) SQ ONE (13:34)
[2023-12-07 13:45] VITALS: BP 148/58; O2SAT 99
== END 2023-12-07 13:45 ==
LOC: M INFU 13:20
PROVIDERS: ATTEND Physician Assistant
DX: J45.50 Severe persistent asthma, uncomplicated (principal); Z91.040 Latex allergy status; Z88.6 Allergy status to analgesic agent

== ENCOUNTER 2023-12-21 11:42 | Outpatient (CLI) | payer MEDICARE, OTHER ==
[~2023-12-21] VITALS: Ht 160 cm; Wt 100.4 kg
[2023-12-21 11:45] VITALS: BP 147/67; O2SAT 95
[2023-12-21] MEDS: OMALIZUMAB 75 MG SQ ONE (11:54)
[2023-12-21] MEDS: OMALIZUMAB 150MG 1ML SYRINGE (XOLAIR) SQ ONE (11:54)
== END 2023-12-21 12:00 ==
LOC: M INFU 11:42
PROVIDERS: ATTEND Physician Assistant
DX: J45.50 Severe persistent asthma, uncomplicated (principal); Z88.6 Allergy status to analgesic agent; Z91.040 Latex allergy status

== ENCOUNTER → 2024-01-01 | Outpatient (REF) | payer MEDICARE, OTHER ==
[2024-01-01 18:50] LABS: PERCENT SATURATION 11.6 % (13.2-45.0)
[2024-01-01 18:53] LABS: FERRITIN 21.8 NG/ML (7.3-270.7)
== END ==
LOC: M LAB REF 17:20
PROVIDERS: ATTEND Internal Medicine
DX: D50.9 Iron deficiency anemia, unspecified (principal)

== ENCOUNTER 2024-01-04 11:25 | Outpatient (CLI) | payer MEDICARE, OTHER ==
[~2024-01-04] VITALS: Ht 160 cm; Wt 100.5 kg
[2024-01-04 11:30] VITALS: BP 158/71; O2SAT 99
[2024-01-04] MEDS: OMALIZUMAB 75 MG SQ ONE (11:39)
[2024-01-04] MEDS: OMALIZUMAB 150MG 1ML SYRINGE (XOLAIR) SQ ONE (11:39)
== END 2024-01-04 11:45 ==
LOC: M INFU 11:25
PROVIDERS: ATTEND Physician Assistant
DX: J45.50 Severe persistent asthma, uncomplicated (principal); Z88.6 Allergy status to analgesic agent; Z91.040 Latex allergy status

== ENCOUNTER 2024-01-19 14:10 | Outpatient (CLI) | payer MEDICARE, OTHER ==
[2024-01-19 14:10] VITALS: BP 148/73; O2SAT 97
[2024-01-19] MEDS: OMALIZUMAB 150MG 1ML SYRINGE (XOLAIR) SQ ONE (14:29)
[2024-01-19] MEDS: OMALIZUMAB 75 MG SQ ONE (14:29)
== END 2024-01-19 14:45 | disposition home or self-care (01) ==
LOC: M INFU 14:10
PROVIDERS: ATTEND Physician Assistant
DX: J45.50 Severe persistent asthma, uncomplicated (principal); Z88.6 Allergy status to analgesic agent; Z91.040 Latex allergy status

== ENCOUNTER 2024-01-29 07:16 | Outpatient (CLI) | payer MEDICARE, OTHER ==
[~2024-01-29] VITALS: Ht 162.6 cm; Wt 100.0 kg
[~2024-01-29 07:16] MED LIST changes: +ALBUTEROL SULFATE 2.5MG/0.5ML INH NEB SOLN INH PRN; +EPINEPHrine INJ 1 MG/ML 1ML AMP IM PRN; +ONDA-282 PO; -ONDA4TAB6 PO; +diphenhydrAMINE 50MG/ML VIAL IV PRN; +methylPREDNISolone 125MG 2ML VIAL IV PRN
[2024-01-29 07:30] VITALS: BP 126/69; O2SAT 96
[2024-01-29] MEDS ORDERED: NS 1,000 ML IV SCH (08:00)
[2024-01-29] MEDS: IRON SUCROSE 25 MG in NS 23.75 ML IV ONE (08:08)
[2024-01-29] MEDS: IRON SUCROSE 475 MG in NS 250 ML IV ONE (09:13)
[2024-01-29 09:45] VITALS: BP 119/56; O2SAT 96
[2024-01-29 13:07] VITALS: BP 140/68; O2SAT 95
== END 2024-01-29 13:00 ==
LOC: M INFU 07:16
PROVIDERS: ATTEND Internal Medicine
DX: E61.1 Iron deficiency (principal); Z88.6 Allergy status to analgesic agent; Z91.040 Latex allergy status
CPT/HCPCS: 96365; 96366; J1756

== ENCOUNTER 2024-02-02 11:50 | Outpatient (CLI) | payer MEDICARE, OTHER ==
[~2024-02-02] VITALS: Ht 160 cm; Wt 100.4 kg
[~2024-02-02 11:50] MED LIST changes: -ALBUTEROL SULFATE 2.5MG/0.5ML INH NEB SOLN INH PRN; -EPINEPHrine INJ 1 MG/ML 1ML AMP IM PRN; -diphenhydrAMINE 50MG/ML VIAL IV PRN; -methylPREDNISolone 125MG 2ML VIAL IV PRN
[2024-02-02] MEDS: OMALIZUMAB 150MG 1ML SYRINGE (XOLAIR) SC ONE (12:06)
[2024-02-02] MEDS: OMALIZUMAB 75 MG SC ONE (12:06)
[2024-02-02 12:15] VITALS: BP 140/88; O2SAT 97
== END 2024-02-02 12:15 | disposition home or self-care (01) ==
LOC: M INFU 11:50
PROVIDERS: ATTEND Physician Assistant
DX: J45.50 Severe persistent asthma, uncomplicated (principal); Z88.6 Allergy status to analgesic agent; Z91.040 Latex allergy status

== ENCOUNTER → 2024-02-03 | Outpatient (REF) | payer MEDICARE, OTHER ==
[2024-02-03 13:38] LABS: PERCENT SATURATION 25.8 % (13.2-45.0)
== END ==
LOC: M LAB REF 11:31
PROVIDERS: ATTEND Internal Medicine
DX: E61.1 Iron deficiency (principal)

== ENCOUNTER 2024-02-16 11:23 | Outpatient (CLI) | payer MEDICARE, OTHER ==
[2024-02-16 11:33] VITALS: BP 122/74; O2SAT 95
[2024-02-16] MEDS: OMALIZUMAB 75 MG SQ ONE (11:40)
[2024-02-16] MEDS: OMALIZUMAB 150MG 1ML SYRINGE (XOLAIR) SQ ONE (11:41)
== END 2024-02-16 11:40 ==
LOC: M INFU 11:23
PROVIDERS: ATTEND Physician Assistant
DX: J45.50 Severe persistent asthma, uncomplicated (principal); Z88.6 Allergy status to analgesic agent; Z91.040 Latex allergy status

== ENCOUNTER 2024-03-01 08:08 | Outpatient (CLI) | payer MEDICARE, OTHER ==
[2024-03-01] MEDS: OMALIZUMAB 75 MG SC ONE (08:27)
[2024-03-01] MEDS: OMALIZUMAB 150MG 1ML SYRINGE (XOLAIR) SC ONE (08:27)
[2024-03-01 08:30] VITALS: BP 132/75; O2SAT 98
== END 2024-03-01 08:30 ==
LOC: M INFU 08:08
PROVIDERS: ATTEND Physician Assistant
DX: J45.50 Severe persistent asthma, uncomplicated (principal); Z88.6 Allergy status to analgesic agent; Z91.040 Latex allergy status

== ENCOUNTER 2024-03-17 09:40 | Outpatient (CLI) | payer MEDICARE, OTHER ==
[~2024-03-17] VITALS: Ht 162.6 cm; Wt 100.0 kg
[2024-03-17 09:40] VITALS: BP 149/70; O2SAT 96
[2024-03-17] MEDS: OMALIZUMAB 150MG 1ML SYRINGE (XOLAIR) SC ONE (09:57)
[2024-03-17] MEDS: OMALIZUMAB 75 MG SC ONE (09:57)
[2024-03-17 10:05] VITALS: BP 129/73; O2SAT 98
== END 2024-03-17 10:05 ==
LOC: M INFU 09:40
PROVIDERS: ATTEND Physician Assistant
DX: J45.50 Severe persistent asthma, uncomplicated (principal); Z88.6 Allergy status to analgesic agent; Z91.040 Latex allergy status

== ENCOUNTER 2024-03-29 12:15 | Outpatient (CLI) | payer MEDICARE, OTHER ==
[~2024-03-29] VITALS: Ht 162.6 cm; Wt 98.6 kg
[2024-03-29] MEDS: OMALIZUMAB 150MG 1ML SYRINGE (XOLAIR) SQ ONE (12:51)
[2024-03-29] MEDS: OMALIZUMAB 75 MG SQ ONE (12:51)
== END 2024-03-29 13:00 ==
LOC: M INFU 12:15
PROVIDERS: ATTEND Physician Assistant
DX: J45.50 Severe persistent asthma, uncomplicated (principal); Z88.6 Allergy status to analgesic agent; Z91.040 Latex allergy status

== ENCOUNTER 2024-04-12 12:40 | Outpatient (CLI) | payer MEDICARE, OTHER ==
[2024-04-12 12:50] VITALS: BP 142/75; O2SAT 96
[2024-04-12] MEDS: OMALIZUMAB 150MG 1ML SYRINGE (XOLAIR) SC ONE (12:50)
[2024-04-12] MEDS: OMALIZUMAB 75 MG SC ONE (12:50)
== END 2024-04-12 12:58 ==
LOC: M INFU 12:40
PROVIDERS: ATTEND Physician Assistant
DX: J45.50 Severe persistent asthma, uncomplicated (principal); Z88.6 Allergy status to analgesic agent; Z91.040 Latex allergy status

== ENCOUNTER 2024-04-26 12:05 | Outpatient (CLI) | payer MEDICARE, OTHER ==
[2024-04-26 12:09] VITALS: BP 149/83; O2SAT 97
[2024-04-26] MEDS: OMALIZUMAB 150MG 1ML SYRINGE (XOLAIR) SQ ONE (12:19)
[2024-04-26] MEDS: OMALIZUMAB 75 MG SQ ONE (12:19)
== END 2024-04-26 12:30 ==
LOC: M INFU 12:05
PROVIDERS: ATTEND Physician Assistant
DX: J45.50 Severe persistent asthma, uncomplicated (principal); Z88.6 Allergy status to analgesic agent; Z91.040 Latex allergy status

== ENCOUNTER 2024-05-10 12:40 | Outpatient (CLI) | payer MEDICARE, OTHER ==
[2024-05-10 12:40] VITALS: BP 148/95; O2SAT 99
[2024-05-10] MEDS: OMALIZUMAB 75 MG SQ ONE (12:44)
[2024-05-10] MEDS: OMALIZUMAB 150MG 1ML SYRINGE (XOLAIR) SQ ONE (12:45)
== END 2024-05-10 12:50 ==
LOC: M INFU 12:40
PROVIDERS: ATTEND Physician Assistant
DX: J45.50 Severe persistent asthma, uncomplicated (principal); Z88.6 Allergy status to analgesic agent; Z91.040 Latex allergy status

== ENCOUNTER 2024-05-24 12:00 | Outpatient (CLI) | payer MEDICARE, OTHER ==
[2024-05-24 12:00] VITALS: BP 137/83; O2SAT 97
[~2024-05-24 12:00] MED LIST changes: +GABA-1172 PO; -GABA-282 PO; +OMALIZUMAB 150MG 1ML SYRINGE (XOLAIR) SQ ONE; +OMALIZUMAB 75 MG SQ ONE
== END 2024-05-24 12:20 ==
LOC: M INFU 12:00
PROVIDERS: ATTEND Physician Assistant
DX: J45.50 Severe persistent asthma, uncomplicated (principal); Z88.8 Allergy status to other drugs, medicaments and biological substances; Z91.040 Latex allergy status

== ENCOUNTER 2024-05-30 11:23 | Emergency (ER) | payer MEDICARE, OTHER ==
[~2024-05-30 11:23] MED LIST changes: -OMALIZUMAB 150MG 1ML SYRINGE (XOLAIR) SQ ONE; -OMALIZUMAB 75 MG SQ ONE
[2024-05-30 13:22] LABS: BASO # 0.1 10^3/uL (0.0-0.2); BASO % 0.8 % (0.0-1.0); EOS # 0.4 10^3/uL (0.0-0.5); EOS % 4.2 % (0.0-3.0); HEMATOCRIT 42.8 % (36.0-47.0); HEMOGLOBIN 14.4 g/dl (12.0-15.5); LYMPH # 2.2 10^3/uL (1.5-5.0); LYMPH % 24.4 % (24.0-44.0); MEAN CORPUSCULAR HEMOGLOBIN 29.3 pg (27.0-33.0); MEAN CORPUSCULAR HGB CONC 33.6 g/dl (32.0-36.5); MEAN CORPUSCULAR VOLUME 87.2 fl (80.0-96.0); MONO # 0.5 10^3/uL (0.0-0.8); NEUTROPHILS % 65.4 % (36.0-66.0); PLATELET COUNT, AUTOMATED 248 10^3/uL (150-450); RED BLOOD COUNT 4.91 10^6/uL (4.00-5.40); WHITE BLOOD COUNT 9.1 10^3/uL (4.0-10.0)
[2024-05-30 13:51] LABS: LIPASE 26 U/L (12-53)
[2024-05-30 13:52] LABS: AMYLASE 33 U/L (30-118)
[2024-05-30 13:53] LABS: ALBUMIN 3.7 G/DL (3.2-5.2); ALKALINE PHOSPHATASE 91 U/L (46-116); ALT/SGPT 39 U/L (7.0-40); AST/SGOT 20 U/L (<34); BILIRUBIN,DIRECT 0.2 MG/DL (<0.4); BILIRUBIN,TOTAL 0.8 MG/DL (0.3-1.2); BLOOD UREA NITROGEN 14 MG/DL (9-23); CALCIUM LEVEL 10.2 MG/DL (8.5-10.1); CARBON DIOXIDE LEVEL 26 MMOL/L (20-31); CHLORIDE LEVEL 106 MMOL/L (98-107); CREATININE FOR GFR 0.67 MG/DL (0.55-1.30); GLOMERULAR FILTRATION RATE > 60.0 (>51); GLUCOSE, FASTING 104 MG/DL (60-100); POTASSIUM SERUM 4.4 MMOL/L (3.5-5.1); SODIUM LEVEL 140 MMOL/L (136-145); TOTAL PROTEIN 7.1 G/DL (5.7-8.2)
[2024-05-30] MEDS ORDERED: ISOVUE-370 76% 100ML VIAL As Ordered ONE (14:11)
[2024-05-30 14:15] VITALS: BP 133/60; TEMP 97.2; O2SAT 96
[2024-05-30] MEDS ORDERED: SUCR1SS PO (15:44)
== END 2024-05-30 15:53 | disposition home or self-care (01) ==
LOC: M ED 11:23
DX: K29.00 Acute gastritis without bleeding (principal); R16.2 Hepatomegaly with splenomegaly, not elsewhere classified; K21.9 Gastro-esophageal reflux disease without esophagitis; I10 Essential (primary) hypertension; J45.909 Unspecified asthma, uncomplicated; Z98.84 Bariatric surgery status; Z88.6 Allergy status to analgesic agent; Z91.040 Latex allergy status; Z79.52 Long term (current) use of systemic steroids; Z79.811 Long term (current) use of aromatase inhibitors; Z79.899 Other long term (current) drug therapy
CPT/HCPCS: 36415; 74177; 80048; 80076; 81001; 82150; 83690; 85025; 87088; 99284; Q9967

== ENCOUNTER → 2024-05-31 | Outpatient (REF) | payer MEDICARE, OTHER ==
[~2024-05-31] MED LIST changes: +SUCR1SS PO
== END ==
LOC: M LAB REF 10:00
PROVIDERS: ATTEND Student in an Organized Health Care Education/Training Program
DX: R19.7 Diarrhea, unspecified (principal); Z79.899 Other long term (current) drug therapy

== ENCOUNTER → 2024-06-10 | Outpatient (CLI) | payer MEDICARE, OTHER ==
[~2024-06-10] VITALS: Ht 162.6 cm; Wt 98.6 kg
[2024-06-10 13:05] VITALS: BP 132/72; O2SAT 98
[2024-06-10] MEDS: OMALIZUMAB 150MG 1ML SYRINGE (XOLAIR) SQ ONE (13:15)
[2024-06-10] MEDS: OMALIZUMAB 75 MG SQ ONE (13:15)
== END ==
LOC: M INFU 12:58
PROVIDERS: ATTEND Internal Medicine Pulmonary Disease
DX: J45.50 Severe persistent asthma, uncomplicated (principal); Z88.6 Allergy status to analgesic agent; Z91.040 Latex allergy status

== ENCOUNTER 2024-06-24 09:05 | Outpatient (CLI) | payer MEDICARE, OTHER ==
[~2024-06-24] VITALS: Ht 162.6 cm; Wt 98.6 kg
[2024-06-24 09:00] VITALS: BP 112/68; O2SAT 98
[2024-06-24] MEDS: OMALIZUMAB 75 MG SQ ONE (09:16)
[2024-06-24] MEDS: OMALIZUMAB 150MG 1ML SYRINGE (XOLAIR) SQ ONE (09:16)
== END 2024-06-24 09:25 ==
LOC: M INFU 09:05
PROVIDERS: ATTEND Internal Medicine Pulmonary Disease
DX: J45.50 Severe persistent asthma, uncomplicated (principal)

== ENCOUNTER → 2024-06-29 | Outpatient (CLI) | payer MEDICARE, OTHER ==
[~2024-06-29] MED LIST changes: +ATOR-398 PO; -LIPI80TA PO
== END ==
LOC: M WHC 09:27
PROVIDERS: ATTEND Internal Medicine
DX: R92.2 Inconclusive mammogram (principal); N60.12 Diffuse cystic mastopathy of left breast
CPT/HCPCS: 77066; G0279

== ENCOUNTER 2024-07-08 09:45 | Outpatient (CLI) | payer MEDICARE, OTHER ==
[2024-07-08 09:45] VITALS: BP 118/69; O2SAT 98
[2024-07-08] MEDS: OMALIZUMAB 75 MG SQ ONE (09:58)
[2024-07-08] MEDS: OMALIZUMAB 150MG 1ML SYRINGE (XOLAIR) SQ ONE (09:58)
== END 2024-07-12 10:15 | disposition home or self-care (01) ==
LOC: M INFU 09:45
PROVIDERS: ATTEND Internal Medicine Pulmonary Disease
DX: J45.50 Severe persistent asthma, uncomplicated (principal); Z88.6 Allergy status to analgesic agent; Z91.040 Latex allergy status

== ENCOUNTER 2024-07-28 13:17 | Outpatient (CLI) | payer MEDICARE, OTHER ==
[2024-07-28] MEDS: OMALIZUMAB 75 MG SQ ONE (13:58)
[2024-07-28] MEDS: OMALIZUMAB 150MG 1ML SYRINGE (XOLAIR) SQ ONE (13:58)
[2024-07-28 14:05] VITALS: BP 122/68; O2SAT 97
== END 2024-07-28 14:05 ==
LOC: M INFU 13:17
PROVIDERS: ATTEND Internal Medicine Pulmonary Disease
DX: J45.50 Severe persistent asthma, uncomplicated (principal); Z88.6 Allergy status to analgesic agent; Z91.040 Latex allergy status

== ENCOUNTER → 2024-08-08 | Outpatient (REF) | payer MEDICARE, OTHER | LOC: M LAB REF 13:12 | PROVIDERS: ATTEND Nurse Practitioner Family | DX: N39.0 Urinary tract infection, site not specified (principal) ==

== ENCOUNTER 2024-08-11 11:35 | Outpatient (CLI) | payer MEDICARE, OTHER ==
[2024-08-11 11:30] VITALS: BP 162/73; O2SAT 99
[2024-08-11] MEDS: OMALIZUMAB 150MG 1ML SYRINGE (XOLAIR) SQ ONE (12:03)
[2024-08-11] MEDS: OMALIZUMAB 75 MG SQ ONE (12:03)
== END 2024-08-11 12:15 ==
LOC: M INFU 11:35
PROVIDERS: ATTEND Internal Medicine Pulmonary Disease
DX: J45.50 Severe persistent asthma, uncomplicated (principal); Z88.6 Allergy status to analgesic agent; Z91.040 Latex allergy status

== ENCOUNTER → 2024-08-12 | Outpatient (REF) | payer MEDICARE, OTHER ==
[2024-08-12 13:36] LABS: PERCENT SATURATION 26.3 % (13.2-45.0)
== END ==
LOC: M LAB REF 12:05
PROVIDERS: ATTEND Internal Medicine
DX: E61.1 Iron deficiency (principal)

== ENCOUNTER 2024-08-25 11:05 | Outpatient (CLI) | payer MEDICARE, OTHER ==
[~2024-08-25] VITALS: Ht 160 cm; Wt 97.7 kg
[2024-08-25 11:20] VITALS: BP 139/70; O2SAT 96
[2024-08-25] MEDS: OMALIZUMAB 150MG 1ML SYRINGE (XOLAIR) SQ ONE (12:11)
[2024-08-25] MEDS: OMALIZUMAB 75 MG SQ ONE (12:11)
== END 2024-08-25 12:15 ==
LOC: M INFU 11:05
PROVIDERS: ATTEND Internal Medicine Pulmonary Disease
DX: J45.50 Severe persistent asthma, uncomplicated (principal); Z88.8 Allergy status to other drugs, medicaments and biological substances; Z91.040 Latex allergy status

== ENCOUNTER 2024-09-15 09:25 | Outpatient (CLI) | payer MEDICARE, OTHER ==
[2024-09-15 09:25] VITALS: BP 128/60; O2SAT 96
[2024-09-15] MEDS: OMALIZUMAB 150MG 1ML SYRINGE (XOLAIR) SQ ONE (09:50)
[2024-09-15] MEDS: OMALIZUMAB 75 MG SQ ONE (09:50)
== END 2024-09-15 10:00 ==
LOC: M INFU 09:25
PROVIDERS: ATTEND Internal Medicine Pulmonary Disease
DX: J45.50 Severe persistent asthma, uncomplicated (principal); Z88.6 Allergy status to analgesic agent; Z91.040 Latex allergy status

== ENCOUNTER → 2024-09-22 | Outpatient (CLI) | payer MEDICARE, OTHER | LOC: M RAD 09:20 | PROVIDERS: ATTEND Physician Assistant | DX: Z12.2 Encounter for screening for malignant neoplasm of respiratory organs (principal); Z87.891 Personal history of nicotine dependence ==

== ENCOUNTER 2024-09-29 10:05 | Outpatient (CLI) | payer MEDICARE, OTHER ==
[~2024-09-29] VITALS: Ht 160 cm; Wt 97.7 kg
[2024-09-29 10:14] VITALS: BP 145/79; O2SAT 94
[2024-09-29] MEDS: OMALIZUMAB 150MG 1ML SYRINGE (XOLAIR) SQ ONE (10:16)
[2024-09-29] MEDS: OMALIZUMAB 75 MG SQ ONE (10:16)
== END 2024-09-29 10:25 | disposition home or self-care (01) ==
LOC: M INFU 10:05
PROVIDERS: ATTEND Internal Medicine Pulmonary Disease
DX: J45.50 Severe persistent asthma, uncomplicated (principal); Z88.6 Allergy status to analgesic agent; Z91.040 Latex allergy status

== ENCOUNTER 2024-10-13 10:50 | Outpatient (CLI) | payer MEDICARE, OTHER ==
[2024-10-13 10:50] VITALS: BP 158/79; O2SAT 95
[2024-10-13] MEDS: OMALIZUMAB 75 MG SQ ONE (10:54)
[2024-10-13] MEDS: OMALIZUMAB 150MG 1ML SYRINGE (XOLAIR) SQ ONE (10:55)
[2024-10-13] MEDS ORDERED: OMALIZUMAB 75 MG SQ ONE (11:00)
== END 2024-10-13 11:10 ==
LOC: M INFU 10:50
PROVIDERS: ATTEND Internal Medicine Pulmonary Disease
DX: J45.50 Severe persistent asthma, uncomplicated (principal); Z88.6 Allergy status to analgesic agent; Z91.040 Latex allergy status
CPT/HCPCS: 96372; J2357

== ENCOUNTER 2024-10-27 10:45 | Outpatient (CLI) | payer MEDICARE, OTHER ==
[2024-10-27] MEDS: OMALIZUMAB 75 MG SQ ONE (11:11)
[2024-10-27] MEDS: OMALIZUMAB 150MG 1ML SYRINGE (XOLAIR) SQ ONE (11:11)
== END 2024-10-27 11:17 ==
LOC: M INFU 10:45
PROVIDERS: ATTEND Internal Medicine Pulmonary Disease
DX: J45.50 Severe persistent asthma, uncomplicated (principal); Z88.6 Allergy status to analgesic agent; Z91.040 Latex allergy status
CPT/HCPCS: 96372; J2357

== ENCOUNTER 2024-11-10 10:10 | Outpatient (CLI) | payer MEDICARE, OTHER ==
[2024-11-10 10:10] VITALS: BP 137/68; O2SAT 97
[2024-11-10] MEDS: OMALIZUMAB 150MG 1ML SYRINGE (XOLAIR) SQ ONE (10:32)
[2024-11-10] MEDS: OMALIZUMAB 75 MG SQ ONE (10:32)
== END 2024-11-10 10:45 ==
LOC: M INFU 10:10
PROVIDERS: ATTEND Internal Medicine Pulmonary Disease
DX: J45.50 Severe persistent asthma, uncomplicated (principal); Z88.6 Allergy status to analgesic agent; Z91.040 Latex allergy status
CPT/HCPCS: 96372; J2357

== ENCOUNTER 2024-11-24 10:10 | Outpatient (CLI) | payer MEDICARE, OTHER ==
[~2024-11-24] VITALS: Ht 160 cm; Wt 98.0 kg
[2024-11-24 10:10] VITALS: BP 140/64; O2SAT 98
[2024-11-24] MEDS: OMALIZUMAB 150MG 1ML SYRINGE (XOLAIR) SQ ONE (10:35)
[2024-11-24] MEDS: OMALIZUMAB 75 MG SQ ONE (10:35)
== END 2024-11-24 10:41 ==
LOC: M INFU 10:10
PROVIDERS: ATTEND Internal Medicine Pulmonary Disease
DX: J45.50 Severe persistent asthma, uncomplicated (principal); Z88.6 Allergy status to analgesic agent; Z91.040 Latex allergy status
CPT/HCPCS: 96372; J2357

== ENCOUNTER 2024-12-08 09:50 | Outpatient (CLI) | payer MEDICARE, OTHER ==
[2024-12-08 10:00] VITALS: BP 128/71; O2SAT 100
[2024-12-08] MEDS: OMALIZUMAB 150MG 1ML SYRINGE (XOLAIR) SQ ONE (10:08)
[2024-12-08] MEDS: OMALIZUMAB 75 MG SQ ONE (10:08)
== END 2024-12-08 10:15 | disposition home or self-care (01) ==
LOC: M INFU 09:50
PROVIDERS: ATTEND Internal Medicine Pulmonary Disease
DX: J45.50 Severe persistent asthma, uncomplicated (principal); Z88.6 Allergy status to analgesic agent; Z91.040 Latex allergy status
CPT/HCPCS: 96372; J2357

== ENCOUNTER 2024-12-22 09:02 | Outpatient (CLI) | payer MEDICARE, OTHER ==
[~2024-12-22] VITALS: Ht 160 cm; Wt 98.0 kg
[2024-12-22 09:00] VITALS: BP 148/66; O2SAT 99
[2024-12-22] MEDS: OMALIZUMAB 150MG 1ML SYRINGE (XOLAIR) SQ ONE (09:44)
[2024-12-22] MEDS: OMALIZUMAB 75 MG SQ ONE (09:44)
== END 2024-12-22 09:50 | disposition home or self-care (01) ==
LOC: M INFU 09:02
PROVIDERS: ATTEND Internal Medicine Pulmonary Disease
DX: J45.50 Severe persistent asthma, uncomplicated (principal); Z88.6 Allergy status to analgesic agent; Z91.040 Latex allergy status
CPT/HCPCS: 96372; J2357

== ENCOUNTER → 2025-03-16 | Outpatient (REF) | payer MEDICARE, OTHER | LOC: M LAB REF 08:00 | PROVIDERS: ATTEND Internal Medicine Pulmonary Disease | DX: J45.50 Severe persistent asthma, uncomplicated (principal); R05.9 Cough, unspecified ==

== ENCOUNTER → 2025-03-16 | Outpatient (CLI) | payer MEDICARE, OTHER | LOC: M PLAIMG 13:23 | PROVIDERS: ATTEND Internal Medicine Pulmonary Disease | DX: J45.50 Severe persistent asthma, uncomplicated (principal); R05.9 Cough, unspecified ==

== ENCOUNTER → 2025-07-28 | Outpatient (CLI) | payer MEDICARE, OTHER | LOC: M WHC 11:34 | PROVIDERS: ATTEND Internal Medicine | DX: Z12.31 Encounter for screening mammogram for malignant neoplasm of breast (principal) ==

== ENCOUNTER → 2025-08-23 | Outpatient (CLI) | payer MEDICARE, OTHER | LOC: M RAD 11:28 | PROVIDERS: ATTEND Internal Medicine Pulmonary Disease | DX: J45.50 Severe persistent asthma, uncomplicated (principal); R05.9 Cough, unspecified ==